=== PATIENT | female | born 1935 | race Caucasian/White ===

== ENCOUNTER 2019-07-24 15:55 | Emergency (ER) | payer MEDICARE, SELFPAY ==
[2019-07-24 16:02] VITALS: BP 178/77; PULSE 108; RESP 18; TEMP 36.6; O2SAT 100
--- NOTE | 2019-07-24 16:13 | ED.GENADULT ---
HPI - General Adult General Chief complaint: Urogenital-Female Stated complaint: bladder infection Time Seen by Provider: 07/24/19 16:14 Source: patient Mode of arrival: ambulatory Limitations: no limitations History of Present Illness HPI narrative: 83-year-old female patient presents to the [facility] with complaints of urinary symptoms for the past 5 to 6 days. Patient states she has had frequency urgency and a little bit of burning with urination. Patient states she has had a little bit of lower abdominal cramping as well. Denies any low back pain. Patient denies any fevers, nausea, vomiting or diarrhea. Related Data Home Medications Medication Instructions Recorded Confirmed atorvastatin 20 mg PO DAILY 07/24/19 07/24/19 omeprazole 20 mg PO DAILY 07/24/19 07/24/19 Allergies Allergy/AdvReac Type Severity Reaction Status Date / Time No Known Allergies Allergy Verified 07/24/19 16:24 Review of Systems Review of Systems: Narrative: CONSTITUTIONAL: Denies fever, chills, or sweats. EYES: Denies visual changes, redness, or discharge. ENT: Denies rhinorrhea, congestion, sore throat, or otalgia. CARDIOVASCULAR: Denies chest pain, palpitations, or edema. RESPIRATORY: Denies cough or dyspnea. GASTROINTESTINAL: Denies abdominal pain, nausea, vomiting, or diarrhea. GENITOURINARY: Denies dysuria or hematuria. Positive pain with urination, urgency and frequency for the past 5 to 6 days. SKIN: Denies rash or itching. MUSCULOSKELETAL: Denies back pain, joint pain, or myalgia. NEUROLOGIC: Denies headache, numbness, or weakness. PSYCHIATRIC: Denies anxiety or depression. PMFSH Comments At the time of my signature I agree with nursing past medical history, surgical, social, and family history. There is no relevant family history pertinent to the presenting complaint. Exam Narrative: Exam Narrative: GENERAL: Well-appearing, well-nourished, and in no acute distress. HEAD: Normocephalic, atraumatic. EYES: PERRLA and EOMI. ENT: Nares clear, no rhinorrhea or epistaxis. Mucous membranes moist. NECK: Supple. No lymphadenopathy CHEST: Clear to auscultation. No respiratory distress. HEART: Regular rate and rhythm. No murmur heard. Normal peripheral pulses. ABDOMEN: Soft, nontender, nondistended, normal active bowel sounds. No CVA tenderness on percussion. EXTREMITIES: Normal range of motion. No edema. SKIN: Warm, dry, no rash. NEURO: No focal deficits. Alert and oriented x3. Course Reevaluation(s) Reevaluation #1: Patient continue not to be able to give a urine specimen despite having water. Notified patient that we are in no hurry but however we did need a urine specimen to send off to the lab to know that the antibiotic that we are giving her today would treat the urinary tract infection. Discussed with her that it was not a problem to wait and continue to try and give us some urine. However when they went to go check on the patient patient had left she was not found in the waiting room and left AMA. Date: 07/24/19 Time: 17:43 Vital Signs Vital signs: Vital Signs Temperature 36.6 C 07/24/19 16:02 Pulse Rate 108 H 07/24/19 16:02 Respiratory Rate 18 07/24/19 16:02 Blood Pressure 178/77 H 07/24/19 16:02 Pulse Oximetry 100 07/24/19 16:02 Temperature 36.6 C 07/24/19 16:02 Pulse Rate 108 H 07/24/19 16:02 Respiratory Rate 18 07/24/19 16:02 Blood Pressure 178/77 H 07/24/19 16:02 Pulse Oximetry 100 07/24/19 16:02 Vital signs reviewed. The patient has been informed that they may have pre-hypertension or Hypertension based on a BP reading in the department. I recommend that the patient call the primary care provider listed on their discharge instructions or a physician of their choice this week to arrange follow up for further evaluation of possible pre-hypertension or Hypertension Medical Decision Making Differential Diagnosis Differential Diagnosis: Differential diagnosis: Uncomplicated lower UTI,
== END 2019-07-24 18:00 | disposition left against medical advice (07) ==
PROVIDERS: Emergency Provider Nurse Practitioner Family
DX: N30.00 Acute cystitis without hematuria (principal); E78.00 Pure hypercholesterolemia, unspecified; I10 Essential (primary) hypertension; K21.9 Gastro-esophageal reflux disease without esophagitis
CPT/HCPCS: 99211; G0463

== ENCOUNTER 2019-09-06 10:08 | Emergency (ER) | payer MEDICARE, SELFPAY ==
--- NOTE | ~2019-09-06 | XR_ITS ---
EXAMINATION: XR chest 2V DATE: 09/06/2019 10:41 INDICATION: Cough. Diminished sounds in the left lower lobe. TECHNIQUE: frontal and lateral views of the chest were obtained. COMPARISON: Chest radiograph dated 06/27/2018 FINDINGS: Calcified nodule at the left apex consistent with old granulomatous disease. No new airspace opacitie s, pulmonary edema, pleural effusion or pneumothorax. Arch size is normal. Prominent left paracardial fat pad. Cholecystectomy clips in the right upper quadrant. Moderate thoracolumbar spondylosis. IMPRESSION: 1. No acute cardiopulmonary disease. Reviewed, dictated and finalized at location B.
[2019-09-06 10:15] VITALS: BP 140/84; PULSE 101; RESP 20; TEMP 36.8; O2SAT 99
--- NOTE | 2019-09-06 10:17 | ED.URI ---
HPI - URI/Sore Throat General Chief Complaint: Upper Respiratory Infection Stated Complaint: cought/chest congestion Time Seen by Provider: 09/06/19 10:20 Source: patient and RN notes reviewed Mode of arrival: ambulatory Limitations: no limitations History of Present Illness HPI Narrative: 83-year-old female presents with concern for productive cough, nasal drainage. Denies sore throat, shortness of breath, chest pain, body aches, fever. Denies taking any medications for her symptoms denies any significant past medical history. MD elicited complaint: cough Related Data Home Medications Medication Instructions Recorded Confirmed atorvastatin 20 mg PO DAILY 07/24/19 09/06/19 omeprazole 20 mg PO DAILY 07/24/19 09/06/19 Allergies Allergy/AdvReac Type Severity Reaction Status Date / Time No Known Allergies Allergy Verified 09/06/19 10:29 Review of Systems Review of Systems: Narrative: CONSTITUTIONAL: Denies malaise, chills, sweats, or fever. EYES: Denies visual changes, redness, or discharge. ENT: Reports rhinorrhea, postnasal drainage. Denies congestion, sinus pain, otalgia and sore throat. CARDIOVASCULAR: Denies chest pain, palpitations, or edema. RESPIRATORY: Reports productive cough. Denies dyspnea. GASTROINTESTINAL: Denies abdominal pain, nausea, vomiting, diarrhea SKIN: Denies rash or itching. MUSCULOSKELETAL: Denies myalgia. NEUROLOGIC: Denies headache. All systems reviewed & are unremarkable except as noted in HPI and below PMFSH Comments At time of signature, agree with nursing past medical, surgical, social and family history. There is no relevant family history pertinent to the presenting complaint Exam Narrative: Exam Narrative: GENERAL: Well-appearing, well-nourished, and in no acute distress. HEAD: Normocephalic EYES: PERRLA, conjunctivae clear ENT: Nares clear, turbinates erythematous, clear discharge. Mucous membranes moist. TM pearly armenta with dull light reflex bilaterally; no tragal tenderness. Oropharynx not erythematous without lesions. Tonsils not enlarged and without exudate, no drooling, no hoarseness, no trismus, uvula midline. NECK: Supple. No lymphadenopathy CHEST: Clear to auscultation, breath sounds slightly diminished in the left lower lobe. No wheezing, rhonchi, rales, or stridor. No respiratory distress, speaks in full sentences. HEART: Regular rate and rhythm. No murmur heard. SKIN: Warm, dry, no rash. NEURO: Alert and oriented x3. PSYCH: Normal mood and affect Course Course Emergency Course: Patient is aware of diagnosis, understands and agrees to treatment plan. Anticipatory guidance given. Patient agrees to follow-up as directed and is aware of reasons to seek care at the emergency department. Portions of this record may have been created with voice recognition software Vital Signs Vital signs: Reviewed. MDM - URI/Sore Throat MDM Narrative Medical decision making narrative: Differential diagnosis considered: Strep pharyngitis, allergic rhinitis, upper respiratory tract infection, sinusitis, rhinosinusitis, nasopharyngitis. viral pharyngitis, otitis media, otitis externa, pneumonia, bronchitis, viral cough syndrome, viral syndrome, and influenza. Exam findings show no acute concerns or changes; patient is non-toxic appearing and is in no distress. Patient is appropriate for outpatient treatment and follow-up. Imaging Data My impression: Images reviewed, interpreted by radiologist, agree, see report. Radiologist's impression: EXAMINATION: XR chest 2V DATE: 09/06/2019 10:41 INDICATION: Cough. Diminished sounds in the left lower lobe. TECHNIQUE: frontal and lateral views of the chest were obtained. COMPARISON: Chest radiograph dated 06/27/2018 FINDINGS: Calcified nodule at the left apex consistent with old granulomatous disease. No new airspace opacities, pulmonary edema, pleural effusion or pneumothorax. Arch size is normal. Prominent left paracardial fat pad. Cholecystectomy cl
== END 2019-09-06 10:56 | disposition home or self-care (01) ==
PROVIDERS: Emergency Provider Nurse Practitioner
DX: J06.9 Acute upper respiratory infection, unspecified (principal); E78.00 Pure hypercholesterolemia, unspecified; I10 Essential (primary) hypertension; K21.9 Gastro-esophageal reflux disease without esophagitis
CPT/HCPCS: 71046; 99213; G0463

== ENCOUNTER 2020-02-03 07:42 | Outpatient (CLI) | payer MEDICARE, SELFPAY ==
--- NOTE | 2020-02-03 09:31 | ECG_ITS ---
Measurements Intervals [place] Rate: 78 P: 66 NM: 220 QRS: -25 QRSD: 121 T: -45 QT: 389 QTc: 444 Interpretive Statements SINUS RHYTHM WITH FIRST DEGREE AV BLOCK LEFT VENTRICULAR HYPERTROPHY AND ST-T CHANGE BORDERLINE ST-T WAVE ABNORMALITY- INF/LAT LEADS BASELINE ARTIFACT- I, II, III, AVR, AVL, AVF ABNORMAL ECG Electronically Signed On 02-03-2020 10:40:01 CDT by Rico Moraes D.O.
[2020-02-03 09:45] LABS: Basophils Absolute Auto 0.1 K/mm3 (0.0-0.1); Basophils Percent Auto 0.6 % (0.2-1.2); Eosinophils Absolute Auto 0.2 K/mm3 (0-0.3); Eosinophils Percent Auto 2.2 % (0-4.4); Hematocrit 40.7 % (37.0-47.0); Hemoglobin 13.4 g/dL (12.0-15.0); Immature Granulocyte Absolute 0.04 K/mm3 (0.00-0.031); Immature Granulocyte Percent A 0.4 % (0-0.5); Lymphocytes Percent Auto 39.2 % (18.3-44.2); Mean Corpuscular HGB Conc 32.9 g/dl (32-36); Mean Corpuscular Volume 91.1 fl (80-100); Mean Platelet Volume 9.9 fl (7.4-10.4); Monocytes Absolute Auto 0.6 K/mm3 (0.1-0.6); Monocytes Percent Auto 6.2 % (2.6-8.5); Neutrophils Absolute Auto 5.1 K/mm3 (1.3-6.7); Neutrophils Percent Auto 51.4 % (45.5-73.1); Platelet Count Result 228 k/mm3 (150-375); Red Blood Count 4.47 M/mm3 (4.2-5.4); Red Cell Distribution Width 12.7 % (11.5-14.5); White Blood Count 9.9 K/mm3 (4.5-10.0)
[2020-02-03 09:53] LABS: Prothrombin Time 12.9 Seconds (11.1-14.7)
[2020-02-03 09:54] LABS: Partial Thromboplastin Time 26.4 SECONDS (22.3-36.8)
[2020-02-03 10:02] LABS: Alanine Aminotransferase 28 U/L (4-35); Albumin Level 4.7 g/dL (3.5-5.1); Alkaline Phosphatase 75 U/L (38-126); Anion Gap 8 mmol/L (8-16); Aspartate Amino Transferase 28 U/L (14-36); Bilirubin,Total 0.7 mg/dL (0.2-1.3); Blood Urea Nitrogen 12 mg/dL (7-17); Calcium 9.6 mg/dL (8.4-10.2); Carbon Dioxide 28 mmol/L (22-30); Chloride 104 mmol/L (98-107); Estimated Glomerular Filt Rate > 60; Glucose 132 mg/dL (65-105); Potassium 4.6 mmol/L (3.4-5.0); Sodium 140 mmol/L (137-145)
== END 2020-02-03 07:43 | disposition home or self-care (01) ==
LOC: ANHSURGERY 07:44
PROVIDERS: PCP Internal Medicine; Visit Provider Urology
DX: Z01.812 Encounter for preprocedural laboratory examination (principal); N81.4 Uterovaginal prolapse, unspecified; I10 Essential (primary) hypertension; I44.0 Atrioventricular block, first degree
CPT/HCPCS: 36415; 80053; 85025; 85610; 85730; 87086; 87088; 93005

== ENCOUNTER 2020-02-28 00:12 | Outpatient (CLI) | payer MEDICARE, SELFPAY ==
[2020-02-28 18:02] LABS: SARS-CoV-2 RNA PCR Negative
== END 2020-02-28 00:13 | disposition home or self-care (01) ==
LOC: ANHCOVIDDT 00:12
PROVIDERS: PCP Internal Medicine; Visit Provider Urology
DX: Z01.812 Encounter for preprocedural laboratory examination (principal); Z20.828 Contact with and (suspected) exposure to other viral communicable diseases
CPT/HCPCS: 87635; C9803; U0003

== ENCOUNTER 2020-03-02 00:17 | Day surgery (SDC) | payer MEDICARE, SELFPAY ==
[2020-02-03 08:15] VITALS: BP 185/97; PULSE 77; RESP 16; TEMP 36.7; O2SAT 98; BMI 29.5
--- NOTE | 2020-02-03 09:39 | PC.NURSE ---
PATIENT'S BP= 185/97. SHE WAS DUE FOR HER BP MED, BUT DID NO TTAKE IT BEFORE COMING IN FOR PRE-OP INTERVIEW. INSTR TO GO HOME AFTER INTERVIEW AND TAKE MORNING MEDS, SHE RELAYS UNDERSTANDING.
--- NOTE | 2020-02-26 08:05 | P.HP_ITS ---
H&P: HPI History of Present Illness Date/Time: 02/26/20 08:05 Chief complaint: Cystocele, Uterine Prolapse Narrative: Valerie Fonseca is a 84 year old female who is admitted for robotic supracervical hysterectomy and bilateral salpingo- oophorectomy as well as sacral colpopexy has uterine prolapse ) disturbing. Risks and benefits were reviewed in great detail Review of Systems Review of Systems: All systems reviewed & are unremarkable except as noted in HPI and below PMFSH Social History Social History Smoking status: Never smoker Alcohol intake: never Substance use: never Spiritual care concerns: No Meds Home Medications and Allergies Home Medications Medication Instructions Recorded Confirmed Type atorvastatin 20 mg PO QAM 07/24/19 02/03/20 History omeprazole 20 mg PO QAM 07/24/19 02/03/20 History jvblvboh-rqz-nfccw acid-vit K 1 cap PO QAM 02/03/20 02/03/20 History [Multi For Her 50 Plus] quinapril 80 mg PO QAM 02/03/20 02/03/20 History Allergies Allergy/AdvReac Type Severity Reaction Status Date / Time No Known Allergies Allergy Verified 02/03/20 08:04 Exam Const: General: no acute distress Eyes: General: appearance normal, both eyes and all related structures Neck: Neck: supple and no JVD Thyroid: thyroid normal Resp: Effort & Inspection: normal respiratory effort Auscultation: clear to auscultation bilaterally Cardio: Rate: regular rate Rhythm: regular rhythm GI: Inspection: non-distended GI Palp: Yes Soft to palpation, No Tenderness to palpation present (GI) and No Guarding due to palpation present (GI) Auscultation: normal bowel sounds : General: Yes other ( complete prolapse present. Uterus and adnexa nonenlarged) Skin: General skin exam: no rashes or lesions noted Extrem: General: normal to inspection and no edema Psych: Mental Status: mental status grossly normal Affect: normal affect Assessment and Plan Additional Plan impression: Pelvic prolapse Plan: Robotic supracervical hysterectomy and bilateral salpingo-oophorectomy
--- NOTE | 2020-03-01 17:14 | PM.IMHP ---
H&P: HPI History of Present Illness Date/Time: 03/01/20 17:14 Chief complaint: Cystocele, Uterine Prolapse Narrative: Valerie Fonseca is a 84 year old female with POP without BRODERICK Review of Systems Review of Systems: All systems reviewed & are unremarkable except as noted in HPI and below PMFSH Social History Social History Smoking status: Never smoker Alcohol intake: never Substance use: never Spiritual care concerns: No Meds Home Medications and Allergies Home Medications Medication Instructions Recorded Confirmed Type atorvastatin 20 mg PO QAM 07/24/19 02/03/20 History omeprazole 20 mg PO QAM 07/24/19 02/03/20 History xrcewamc-vaj-uympp acid-vit K 1 cap PO QAM 02/03/20 02/03/20 History [Multi For Her 50 Plus] quinapril 80 mg PO QAM 02/03/20 02/03/20 History Allergies Allergy/AdvReac Type Severity Reaction Status Date / Time No Known Allergies Allergy Verified 02/03/20 08:04 Exam Const: General: no acute distress HENMT: Mouth: Yes moist mucous membranes Eyes: EOM: EOMs intact bilaterally Neck: Neck: supple Resp: Effort & Inspection: normal respiratory effort GI: Inspection: non-distended GI Palp: Yes Soft to palpation : Other: anterior +4, apex at 0 Skin: General skin exam: normal color Neuro: Motor exam (neuro): Normal motor muscle tone present throughout Extrem: General: normal to inspection Psych: Mental Status: mental status grossly normal Assessment and Plan Assessment and plan (1) Uterine prolapse: Code(s): N81.4 - Uterovaginal prolapse, unspecified Status: Acute Assessment and Plan: Robotic Sacral Colpopexy
[2020-03-02] VITALS (17 sets, daily range): BP systolic 112–184; BP diastolic 50–86; PULSE 72–100; RESP 10–18; TEMP 36.2–37.2; O2SAT 94–100; BMI 30.2
--- NOTE | 2020-03-02 06:03 | WPDHPUPDATE1 ---
History and Physical Update Update Date/Time: 03/02/20 06:03 History and Physical has been reviewed, including an updated exam of the patient. There are NO changes in the patient's condition. Risks, benefits, and alternatives have been discussed and questions answered. Patient agrees to proceed with procedure.
--- NOTE | 2020-03-02 06:42 | P.PNAN_ITS ---
Anes - Initial Pre Proc Eval Procedure: Operation Date: 03/02/20 07:30 Proposed Procedures p Robotic Sacrocolpopexy,Possible Urethral Sling - Jimenez Aldana MD s Robotic Assisted Supracervical Hysterectomy - Bharath Grant MD Date/Time: 03/02/20 06:42 Surgeon: Jimenez Aldana MD Pre Op Diagnosis: Cystocele, Uterine Prolapse Patient Data Age: 84 Gender: F Height: 5 ft 1.5 in Weight: 72.1 kg Last Vital Signs Temp 36.7 C 02/03/20 08:15 Pulse 77 02/03/20 08:15 Resp 16 02/03/20 08:15 BP 185/97 H 02/03/20 08:15 Pulse Ox 98 02/03/20 08:15 Allergies Allergy/AdvReac Type Severity Reaction Status Date / Time No Known Allergies Allergy Verified 03/02/20 06:16 Home Medications Medication Instructions Recorded Confirmed Type atorvastatin 20 mg PO QAM 07/24/19 03/02/20 History omeprazole 20 mg PO QAM 07/24/19 03/02/20 History fihzjapg-zpk-kyxzu acid-vit K 1 cap PO QAM 02/03/20 03/02/20 History [Multi For Her 50 Plus] quinapril 80 mg PO QAM 02/03/20 03/02/20 History Patient hx anesthesia problems: none Family hx anesthesia problems: none PMFSH Past Medical History Medical History (Updated 03/02/20 @ 06:42 by Bharath Sorto MD) Anxiety HTN (hypertension) Hyperlipidemia Surgical History Surgical History (Updated 03/02/20 @ 06:43 by Bharath Sorto MD) History of cholecystectomy History of ear surgery Social History Social History Smoking status: Never smoker Alcohol intake: never Substance use: never Living arrangements: alone Spiritual care concerns: No Anes - Eval Final PreProcedure Day of Procedure 03/02/20 06:42 Patient weight: overweight Heart: regular rate and rhythm Lungs: clear to auscultation Airway: Mallampati scale class II Neurological: alert and oriented Last oral intake: >/= 8 hours ASA classification: III Emergent: no Anesthetic plan: proceed Anesthesia type and monitoring: general ETT and standard monitoring Informed Consent: The patient's anesthetic plan and its attendant risks and b enefits were discussed with the patient/family/POA. Questions were solicited and answers provided to the satisfaction of the patient/family/POA.
[2020-03-02] MEDS: KETOROLAC 15 MG/ML VIAL (*BKC) IV PUSH ×2 (07:09→17:50)
[2020-03-02] MEDS: ACETAMINOPHEN 500 MG TABLET 1000 MG PO (07:09)
[2020-03-02] MEDS: LACTATED RINGERS 1,000 ML 30 ML IV CONT ×2 (07:09→10:08)
--- NOTE | 2020-03-02 07:19 | WPDHPUPDATE1 ---
History and Physical Update Update Date/Time: 03/02/20 07:19 History and Physical has been reviewed, including an updated exam of the patient. There are NO changes in the patient's condition. Risks, benefits, and alternatives have been discussed and questions answered. Patient agrees to proceed with procedure.
--- NOTE | 2020-03-02 07:23 | SUR.PREOP ---
PT STATES SHE IS UNABLE TO SWALLOW PILLS. PT CHEWED TYLENOL. KIRSTY SHEET MANAGER NOTIFIED
--- NOTE | 2020-03-02 07:32 | SUR.PREOP ---
0715; [facility] ANN NOTIFIED OF BP AND PT INABILITY TO SWALLOW PILLS
[2020-03-02] MEDS: ceFAZolin 2 GM/D5W 50 ML 2 GM/50 ML BAG IVPB (07:34)
[2020-03-02] MEDS: metroNIDAZOLE 500 MG/ISO 100ML 500 MG/100 ML BAG 100 MG IVPB ×3 (07:34→23:00)
--- NOTE | 2020-03-02 08:31 | PM.PROC ---
Procedure Note - Detailed Date of procedure: 03/02/20 Pre-op diagnosis: Cystocele, Uterine Prolapse Surgeon: Bharath Grant MD Postop diagnosis: Uterine prolapse /cystocele Procedure: Robotic supracervical hysterectomy and bilateral salpingo-oophorectomy EBL: 25cc Anesthesia: General endotracheal Complications: None Findings: Uterine prolapse small ovaries and tubes bilaterally. This was done in conjunction with Dr. Jimenez Aldana who undertook robotic sacral colpopexy Description of procedure the patient was prepped and draped in the normal sterile fashion and placed in the dorsal lithotomy position. Under excellent general endotracheal anesthesia weighted speculum placed in posterior fornix of vagina. The anterior lip of the cervix grasped with a single-tooth tenaculum and the Millard's cannula inserted to the cervix. This was attached to the single-tooth to be used for later uterine manipulation. A [address] [place] peguero proceeded with docking of the robot. Please see his operative report for full details. Once the robot had been docked attention was turned to the phone counselor. The left round ligament was grasped, burned, cut. Anteriorly a bladder flap was formed by sharply dissecting the bladder caudally from the uterine ends cervix and uterus to the opposite round ligament was clamped, burned, cut. Next the left infundibulopelvic structure was skeletonized to remove left ovary and tube this was clamped, burned, cut and brought to the level of the previously cut round ligament. In like fashion the the infundibulopelvic structures on the right were clamped, burned, cut to remove the right ovary and tube. The cardinal and broad ligaments on the left were serially skeletonized these were serially clamped, burned, cut and brought to the level of the uterine vessels on the left. These were individually clamped, burned, cut. In like fashion the cardinal and broad ligaments on the right were serially skeletonized. They were clamped, burned, cut and brought down to the level of the uterine vessels on the right. These were individually skeletonized and clamped, burned, cut. Blanching of the uterus was noted a supracervical incision was made and the cervix left intact. The uterus tubes and ovaries were placed in an Endo-Catch. Blood loss was estimated at25cc at that point and Dr. Aldana took over from there. There were no immediate complications up to this point
[2020-03-02] MEDS: BUPIVACAINE/EPINEPHRINE 0.25% 50 ML VIAL INFILTRATE (08:56)
--- NOTE | 2020-03-02 09:56 | P.OP_ITS ---
Procedure Note - Detailed Date of procedure: 03/02/20 Pre-op diagnosis: Cystocele, Uterine Prolapse Uterine prolapse Post-op diagnosis: same Procedure performed: Robotic assisted laparoscopic sacral colpopexy Cystoscopy Description of procedure: She understood the risks of bleeding, infection, damage to surrounding organs, bowel injury, bowel obstruction, recurrence of prolapse, persistent or recurrent stress incontinence, mesh related complications including exposure and extrusion, diskitis, postoperative voiding dysfunction including incontinence and retention, hip and leg pain, dyspareunia, and she agrees to proceed. She did not have documented stress incontinence on urodynamics. She understands she may have postoperative stress incontinence requiring another procedure. She was correctly identified and informed consent was obtained. She was brought to the operating room. She was given general anesthesia. She was placed in the dorsal lithotomy position. All pressure points were padded. She was given appropriate perioperative antibiotics. Time-out performed. I anesthetized the skin 3 fingerbreadths cephalad to the umbilicus. I incised the skin. I dissected down to locate the fascia. I grasped the fascia with Francis clamps. I entered the fascia sharply. I placed Vicryl sutures for later fascial closure. I placed a midline trocar. Under direct vision 2 additional trocars were placed on the right and left upper quadrant. She was placed in steep Trendelenburg and the robot was docked. Her process engineering technician performed the portion of the procedure and left the specimen and a sac which was extracted. I then sat at the console. With the Sizer in the vagina I created a plane on the anterior and posterior vaginal wall. This was done for several cm taking great care not to injure the vagina, bladder, or rectum. I introduced the mesh into the abdomen. I sewed the anterior leaflet of mesh on the anterior vaginal wall and posterior leaf of the mesh on the posterior vaginal wall with several [place]- Be sutures taking great care not to go through and through. I then reflected the colon laterally. I opened up the posterior peritoneum over the sacral promontory. I carried this into the cul-de-sac. I kept the ureters lateral. I freed up the edges. I located the anterior longitudinal ligament of the sacrum. I tensioned the mesh appropriately. I did a vaginal exam to ensure prolapse reduction without undue tension. I then sewed the proximal leaflet of mesh onto the ligament with 3 sutures of 2 0 [place]-Be. Next the mass was meticulously retroperitonealized with a running 2 0 Monocryl suture. I allowed the colon to go back into its normal anatomic location. There is no signs of any impingement or stricturing. The abdomen was exited. Fascia was closed. Skin was closed with Monocryl and glue. I then performed cystoscopy. The bladder is examined. There was no tumors, stones, foreign bodies, surgical artifact. Both ureters were seen to excrete clear yellow urine. There is no surgical artifact in the urethra. Catheter was then replaced. She was awakened and transferred to the PACU in stable condition. Anesthesia: GLMA Surgeon: Jimenez Aldana MD Drains: Yes (Tejada catheter) Packing: Yes Complications: No immediate complications Condition: stable Disposition: PACU
[2020-03-02] MEDS: ONDANSETRON INJ 4 MG/2 ML VIAL IV PUSH (10:37)
[2020-03-02] MEDS: fentaNYL CITRATE INJ (*CRX) 100 MCG/2 ML VIAL 25 MCG IV PUSH ×4 (10:40→11:05)
--- NOTE | 2020-03-02 11:29 | PC.NURSE ---
This patient, Valerie Fonseca, was received from PACU per bed to room 289. Patient/family oriented to unit policies and routines
[2020-03-02] MEDS: KCL 20 MEQ/D5/0.45% SOD CHL 1,000 ML 100 ML IV CONT ×2 (11:40→22:32)
[2020-03-02] MEDS: MORPHINE SULFATE (*CRX) 2 MG/ML INJ IV PUSH (14:04)
[2020-03-02] MEDS: lisinopriL 20 MG TABLET 80 MG PO (16:39)
[2020-03-02] MEDS: CALCIUM CARBONATE (TUMS) 500 MG (200 MG ELEMENTAL) PO (21:38)
[2020-03-02] MEDS: Acetaminophen/HYDROcodone ELIXIR (*CRX) 7.5 MG/15 ML UDC 5 MG PO (21:41)
[2020-03-03 04:10] VITALS: BP 152/75; PULSE 102; RESP 20; TEMP 36.8; O2SAT 93
[2020-03-03] MEDS: Acetaminophen/HYDROcodone ELIXIR (*CRX) 7.5 MG/15 ML UDC 5 MG PO ×2 (04:31→09:27)
[2020-03-03 06:05] LABS: Potassium 4.3 mmol/L (3.4-5.0)
--- NOTE | 2020-03-03 06:31 | P.DS_ITS ---
DS: Admitting Diagnosis Admitting Diagnosis Admitting Diagnosis: Cystocele, Uterine Prolapse DS: Summary Time Spent with Patient Time attestation: Total time spent providing and/or coordinating discharge services: patient is post operative course was unremarkable. She remained afebrile. Vital signs were stable. She was up, voiding without difficulty, passing gas, eating regular diet, ambulating general without complaints Exam Const: General: no acute distress Eyes: General: appearance normal, both eyes and all related structures Neck: Neck: supple and no JVD Thyroid: thyroid normal Resp: Effort & Inspection: normal respiratory effort Auscultation: clear to auscultation bilaterally Cardio: Rate: regular rate Rhythm: regular rhythm GI: Inspection: non-distended GI Palp: Yes Soft to palpation, No Tenderness to palpation present (GI) and No Guarding due to palpation present (GI) Auscultation: normal bowel sounds : General: Yes bladder normal to palpation External Female Exam: normal external appearance Speculum Exam - Vagina: normal vaginal discharge and No v aginal bleeding Speculum Exam - Cervix: nontender Bimanual exam- vagina & uterus: bladder normal to palpation and No Cervical tenderness present OB/external & speculum: No vaginal bleeding Skin: General skin exam: no rashes or lesions noted Extrem: General: normal to inspection and no edema Psych: Mental Status: mental status grossly normal Affect: normal affect DS: Data Data Completed and Pending Pending studies at discharge: Pending at discharge 03/02/20 08:23 Surgical [PTH] Routine Labs on day of discharge: Labs from last 24 hours 03/03/20 03/02/20 04:27 07:16 Potassium 4.3 Blood Type A Positive Antibody Screen Negative Discharge Plan Discharge Patient Disposition: Home, Self-Care Discharge Instructions: No lifting >20lb, exercise for 6 weeks No tub bath or pool for 2 weeks No intercourse for 6 weeks Stand Alone Forms: General Discharge Instructions Follow-up/Referrals: Jimenez Aldana MD [Physician] - (And 1 week and in 6 weeks) Discharge Medications: New hydrocodone-acetaminophen 7.5-325 mg/15 mL solution 10 ml PO Q6H PRN (Reason: pain) Qty: 200 RF: 0 Continued atorvastatin 20 mg Tablet 20 mg PO QAM RF: 0 omeprazole 20 mg Tablet,Delayed Release (Dr/Ec) 20 mg PO QAM RF: 0 quinapril 40 mg tablet 80 mg PO QAM RF: 0 Multi For Her 50 Plus 400-80 mcg Capsule 1 cap PO QAM RF: 0
--- NOTE | 2020-03-03 06:32 | PM.OBPNVD ---
OB - PN: Subj Subjective Date/time seen: 03/03/20 06:32 Patient comments: no complaints and pain well controlled OB - PN: Obj Data Labs CBC & Chem 7: 03/03/20 04:27 Labs: Laboratory Results - last 24 hr 03/02/20 03/03/20 07:16 04:27 Potassium 4.3 Blood Type A Positive Antibody Screen Negative OB - PN A/P Plan day: 1 Plan: routine care, discharge home and follow up 6 weeks (2 weeks) Time Spent With Patient Time: Total time spent is greater than 50% in coordination of care (as documented) at patient's floor/unit and/or counseling patient: Time with patient: less than 15 minutes Review of Systems Review of Systems: All systems reviewed & are unremarkable except as noted in HPI and below Exam Const: General: no acute distress Eyes: General: appearance normal, both eyes and all related structures Neck: Neck: supple and no JVD Thyroid: thyroid normal Resp: Effort & Inspection: normal respiratory effort Auscultation: clear to auscultation bilaterally Cardio: Rate: regular rate Rhythm: regular rhythm GI: Inspection: non-distended GI Palp: Yes Soft to palpation, No Tenderness to palpation present (GI) and No Guarding due to palpation present (GI) Auscultation: normal bowel sounds : General: Yes bladder normal to palpation External Female Exam: normal external appearance Speculum Exam - Vagina: normal vaginal discharge and No vaginal bleeding Speculum Exam - Cervix: nontender Bimanual exam- vagina & uterus: bladder normal to palpation and No Cervical tenderness present OB/external & speculum: No vaginal bleeding Skin: General skin exam: no rashes or lesions noted Extrem: General: normal to inspection and no edema Psych: Mental Status: mental status grossly normal Affect: normal affect
--- NOTE | 2020-03-03 07:00 | PC.NURSE ---
0900 PT introductions made and plan of care discussed per post op director risk surgery, pain management, daily care activities and pending discharge to home. PT verbalized understanding of such care.
[2020-03-03] MEDS: metroNIDAZOLE 500 MG/ISO 100ML 500 MG/100 ML BAG 100 MG IVPB (08:00)
[2020-03-03 08:40] VITALS: BP 143/66; PULSE 86; RESP 18; TEMP 37.4; O2SAT 98
[2020-03-03] MEDS: CALCIUM CARBONATE (TUMS) 500 MG (200 MG ELEMENTAL) PO (09:25)
[2020-03-03] MEDS: ENOXAPARIN 30 MG/0.3 ML SYRINGE SUB-Q (09:27)
[2020-03-03] MEDS: KETOROLAC 15 MG/ML VIAL (*BKC) IV PUSH (09:29)
--- NOTE | 2020-03-03 09:45 | PC.NURSE ---
Pt refused her home medications. PT states she wants to take them at home this morning.
[2020-03-03 10:12] VITALS: PULSE 102; RESP 20; O2SAT 93
--- NOTE | 2020-03-03 11:30 | PC.NURSE ---
PT discharged to home via wheelchair to waiting car, Follow up appts confirmed
--- NOTE | 2020-03-03 12:59 | PC.NURSE ---
Pt received discharge instructions per protocol and verbalized understanding of such instructions.
== END 2020-03-03 11:30 | disposition home or self-care (01) ==
LOC: ANHSURGERY 08:16 → ANHOB2 11:44
PROVIDERS: Obstetrics & Gynecology; PCP Internal Medicine; Visit Provider Urology
PROC: (CPT 57425; principal; 2020-03-02 07:30)
PROC: 0UT94ZZ Resection of Uterus, Percutaneous Endoscopic Approach (ICD-10-PCS; CPT 57425; 2020-03-02 07:30)
DX: N81.4 Uterovaginal prolapse, unspecified (principal); E78.5 Hyperlipidemia, unspecified; I10 Essential (primary) hypertension; N80.0 Endometriosis of uterus; D25.1 Intramural leiomyoma of uterus; D27.0 Benign neoplasm of right ovary
CPT/HCPCS: 58542; 57425; S2900; 36415; 84132; 86850; 86900; 86901; 88307; 99199; A9270; C1781; J0330; J0690; J1100; J1650; J1885; J2270; J2370; J2405; J2704; J3010; J3480; J7030; J7120

== ENCOUNTER 2021-04-28 15:41 | Emergency (ER) | payer MEDICARE, SELFPAY ==
--- NOTE | 2021-04-28 15:49 | ED.URI ---
HPI - URI/Sore Throat General Chief Complaint: Upper Respiratory Infection Stated Complaint: cough sore throat and ear pain Time Seen by Provider: 04/28/21 15:49 Source: patient and RN notes reviewed History of Present Illness HPI Narrative: Patient is an 85-year-old female who presents the urgent care with complaints of cough, postnasal drainage, ear pain and sore throat. Patient states that a little bit of her symptoms started last night and persistent cough this morning. Patient has been using all natural products for her symptoms through her company known as [employer]. Patient denies of any known exposure to Covid or influenza. Denies of any nausea, vomiting, fever. No other acute complaints. No acute distress noted. Patient aware of the plan of care. Some parts of this dictation were generated by voice recognition software and may contain typographical and/or grammatical inaccuracies. Related Data Home Medications Medication Instructions Recorded Confirmed omeprazole 20 mg PO QAM 07/24/19 03/02/20 Multi For Her 50 Plus 1 cap PO QAM 02/03/20 03/02/20 quinapril 80 mg PO QAM 02/03/20 03/02/20 atorvastatin 10 mg PO DAILY 04/28/21 04/28/21 furosemide 20 mg PO DAILY 04/28/21 04/28/21 propranolol 10 mg PO BID 04/28/21 04/28/21 Allergies Allergy/AdvReac Type Severity Reaction Status Date / Time No Known Allergies Allergy Verified 04/28/21 15:58 Review of Systems Review of Systems: CONSTITUTIONAL: Denies fever, chills, or sweats. EYES: Denies visual changes, redness, or discharge. ENT: Reports of congestion, rhinorrhea, mild sore throat CARDIOVASCULAR: Denies chest pain, palpitations, or edema. RESPIRATORY: Reports of cough without dyspnea GASTROINTESTINAL: Denies abdominal pain, nausea, vomiting, or diarrhea. GENITOURINARY: Denies dysuria or hematuria. SKIN: Denies rash or itching. MUSCULOSKELETAL: Denies back pain, joint pain, or myalgia. NEUROLOGIC: Denies headache, numbness, or weakness. All other systems reviewed are negative, except as documented in HPI. [facility] Past Medical History Medical History (Updated 04/28/21 @ 16:40 by HECTOR Guthrie) Anxiety HTN (hypertension) Hyperlipidemia Surgical History Surgical History (Updated 03/02/20 @ 06:43 by Bharath Sorto MD) History of cholecystectomy History of ear surgery Social History Social History Smoking status: Never smoker Alcohol intake: never Substance use: never Spiritual care concerns: No Comments At the time of my signature, I reviewed and agree with the nursing past medical, surgical, social, and family history. There is no relevant family history pertinent to the patient complaint. Exam Narrative: GENERAL: This is a well-nourished, well-developed patient, in no apparent distress. HEAD: normocephalic, atraumatic. EYES: PERRL. Sclera clear/white. Vision is grossly intact. Mild bilateral injected conjunctiva with clear tearing EARS: External ears normal, auditory canals clear and without drainage, TMs normal without perforation. Hearing grossly intact. NOSE: External nose normal with no obvious nasal discharge, nares without redness, clear rhinorrhea. THROAT: Mucous membranes moist, posterior pharynx clear. Moderate postnasal drainage NECK: Neck supple CARDIOVASCULAR: Regular rate and rhythm without murmurs, gallops, or rubs. RESPIRATORY: Clear to auscultation. Breath sounds equal bilaterally. No wheezes, rales, or rhonchi. SKIN: warm, intact with no suspicious lesions or rash, good texture and turgor. NEURO: awake, alert, and oriented to person, place and time. There were no obvious focal neurologic abnormalities. EXTREMITIES: No clubbing, cyanosis, or edema. Course Vital Signs Vital signs: Vital Signs Temperature 98.9 F 04/28/21 15:52 Pulse Rate 86 04/28/21 15:52 Respiratory Rate 16 04/28/21 15:52 Blood Pressure 199/85 H 04/28/21 15:52 Pulse Oximetry
[2021-04-28 15:52] VITALS: BP 199/85; PULSE 86; RESP 16; TEMP 37.2; O2SAT 97
[2021-04-28 16:00] VITALS: BP 199/85; PULSE 86; RESP 16; TEMP 37.2; O2SAT 97
[2021-04-29 15:23] LABS: SARS-CoV-2 RNA PCR Positive
== END 2021-04-28 16:40 | disposition home or self-care (01) ==
PROVIDERS: Emergency Provider Nurse Practitioner Family
DX: U07.1 COVID-19 (principal); E78.5 Hyperlipidemia, unspecified; I10 Essential (primary) hypertension
CPT/HCPCS: 87804; 99213; C9803; G0463; U0003; U0005

== ENCOUNTER 2021-11-04 17:35 | Emergency (ER) | payer MEDICARE, SELFPAY ==
--- NOTE | 2021-11-04 17:39 | ED.GENADULT ---
HPI - General Adult General Chief complaint: Unspecified Stated complaint: blood pressure issue Time Seen by Provider: 11/04/21 17:45 Source: patient, family and RN notes reviewed History of Present Illness HPI narrative: Patient is an 85-year-old female who presents the urgent care with her daughter with complaints of itchiness, intermittent dizziness, and problems with her blood pressure medications. Patient states that she is called her doctor regarding the dizziness and they told her to keep taking her medications as directed until her follow-up appointment on December 12 . Patient states that she stopped taking her Coreg approximately 3 or 4 days ago and states that the dizziness has gotten much better however now her blood pressure has been elevated. Patient denies of any recent falls, confusion. States that she does have a lot of itchiness . And has not taken anything for the itch. There is no notable rash to the skin. Denies of any new lotions, detergents or creams. No other complaints. No acute distress noted. Patient aware of the plan of care. Some parts of this dictation were generated by voice recognition software and may contain typographical and/or grammatical inaccuracies. Related Data Home Medications Medication Instructions Recorded Confirmed omeprazole 20 mg tablet,delayed 20 mg PO QAM 07/24/19 04/28/21 release ekccwvkowtxm-yvtixgor-jdodo acid 1 cap PO QAM 02/03/20 04/28/21 400 mcg-vitamin K 80 mcg capsule (Multi For Her 50 Plus) quinapril 40 mg tablet 80 mg PO QAM 02/03/20 04/28/21 atorvastatin 10 mg tablet 10 mg PO DAILY 04/28/21 04/28/21 propranolol 10 mg tablet 10 mg PO BID 04/28/21 04/28/21 carvedilol 6.25 mg tablet 625 mg PO BID 11/04/21 11/04/21 hydrochlorothiazide 25 mg tablet 25 mg PO DAILY 11/04/21 11/04/21 nifedipine 60 mg tablet,extended 60 mg PO BID 11/04/21 11/04/21 release nifedipine 60 mg tablet,extended mg PO 11/04/21 release Allergies Allergy/AdvReac Type Severity Reaction Status Date / Time No Known Allergies Allergy Verified 11/04/21 17:48 Review of Systems Review of Systems: CONSTITUTIONAL: Denies fever, chills, or sweats. EYES: Denies visual changes, redness, or discharge. ENT: Denies rhinorrhea, congestion, sore throat, or otalgia. CARDIOVASCULAR: Denies chest pain, palpitations, or edema. RESPIRATORY: Denies cough or dyspnea. GASTROINTESTINAL: Denies abdominal pain, nausea, vomiting, or diarrhea. GENITOURINARY: Denies dysuria or hematuria. SKIN: Reports of itchiness without rash MUSCULOSKELETAL: Denies back pain, joint pain, or myalgia. NEUROLOGIC: Denies headache, numbness, or weakness. All other systems reviewed are negative, except as documented in HPI. [facility] Past Medical History Medical History (Updated 11/04/21 @ 18:02 by HECTOR Guthrie) Anxiety HTN (hypertension) Hyperlipidemia Surgical History Surgical History (Updated 03/02/20 @ 06:43 by Bharath Sorto MD) History of cholecystectomy History of ear surgery Social History Social History Smoking status: Never smoker Alcohol intake: never Substance use: never Spiritual care concerns: No Comments At the time of my signature, I reviewed and agree with the nursing past medical, surgical, social, and family history. There is no relevant family history pertinent to the patient complaint. Exam Narrative: GENERAL: This is a well-nourished, well-developed patient, in no apparent distress. HEAD: normocephalic, atraumatic. EYES: PERRL. Sclera clear/white. Vision is grossly intact. EARS: External ears normal NOSE: External nose normal with no obvious nasal discharge, nares without redness, no rhinorrhea. THROAT: Mucous membranes moist NECK: Neck supple CARDIOVASCULAR: Sinus tachycardic RESPIRATORY: Clear to auscultation. SKIN: warm, intact with no suspicious lesions or rash, good texture and turgor. NEURO: awake, alert,
[2021-11-04 17:46] VITALS: BP 154/65; PULSE 111; RESP 16; TEMP 38.2; O2SAT 99
[2021-11-04 17:51] VITALS: BP 154/65; PULSE 111; RESP 16; TEMP 38.2; O2SAT 99
[2021-11-04 18:07] VITALS: TEMP 36.6
== END 2021-11-04 18:07 | disposition home or self-care (01) ==
PROVIDERS: Emergency Provider Nurse Practitioner Family; PCP Hospitalist
DX: L29.9 Pruritus, unspecified (principal); I10 Essential (primary) hypertension; F41.9 Anxiety disorder, unspecified; E78.5 Hyperlipidemia, unspecified
CPT/HCPCS: 99211; G0463

== ENCOUNTER 2021-11-12 09:53 | Outpatient (CLI) | payer MEDICARE, SELFPAY ==
[2021-11-12 18:54] LABS: Hematocrit 38.1 % (37.0-47.0); Mean Corpuscular HGB Conc 31.5 g/dl (32-36); Mean Corpuscular Hemoglobin 29.6 pg (26-34); Mean Corpuscular Volume 94.1 fl (80-100); Mean Platelet Volume 10.5 fl (7.4-10.4); Platelet Count Result 301 k/mm3 (150-375); Red Blood Count 4.05 M/mm3 (4.2-5.4); Red Cell Distribution Width 12.9 % (11.5-14.5); White Blood Count 8.4 K/mm3 (4.5-10.0)
[2021-11-12 18:58] LABS: Alanine Aminotransferase 30 U/L (6-35); Albumin Level 4.2 g/dL (3.5-5.1); Alkaline Phosphatase 75 U/L (38-126); Anion Gap 7 mmol/L (8-16); Aspartate Amino Transferase 43 U/L (14-36); Bilirubin,Total 0.5 mg/dL (0.2-1.3); Blood Urea Nitrogen 25 mg/dL (7-17); Calcium 9.9 mg/dL (8.4-10.2); Carbon Dioxide 26 mmol/L (22-30); Chloride 102 mmol/L (98-107); Cholesterol 180 mg/dL (0-200); Estimated Glomerular Filt Rate 60; Glucose 188 mg/dL (65-110); HDL Direct 50 mg/dL; Potassium 4.9 mmol/L (3.4-5.0); Sodium 135 mmol/L (137-145); Triglycerides 129 mg/dL (<150)
[2021-11-12 19:09] LABS: LDL Cholesterol Direct 91 mg/dL
== END 2021-11-12 09:54 | disposition home or self-care (01) ==
PROVIDERS: PCP Family Medicine; Visit Provider Family Medicine
DX: E78.5 Hyperlipidemia, unspecified (principal); I10 Essential (primary) hypertension; F41.9 Anxiety disorder, unspecified; G62.9 Polyneuropathy, unspecified
CPT/HCPCS: 36415; 80053; 80061; 82607; 85027

== ENCOUNTER 2021-11-15 10:24 | Outpatient (CLI) | payer MEDICARE, SELFPAY ==
[2021-11-15 19:20] LABS: Alanine Aminotransferase 26 U/L (6-35); Albumin Level 4.3 g/dL (3.5-5.1); Alkaline Phosphatase 80 U/L (38-126); Aspartate Amino Transferase 31 U/L (14-36); Bilirubin,Total 0.4 mg/dL (0.2-1.3)
[2021-11-15 19:50] LABS: Hepatitis B Surface Antigen Negative (Negative)
[2021-11-15 19:57] LABS: HAV RESULT Negative (Negative); Hepatitis B Core IgM Result Negative (Negative)
[2021-11-15 20:08] LABS: Hepatitis C Virus Antibody Negative (Negative)
[2021-11-15 20:10] LABS: Hemoglobin A1C 8.6 % (<5.7)
== END 2021-11-15 10:25 | disposition home or self-care (01) ==
PROVIDERS: PCP Family Medicine; Visit Provider Family Medicine
DX: R73.09 Other abnormal glucose (principal); R74.8 Abnormal levels of other serum enzymes; R74.01 Elevation of levels of liver transaminase levels
CPT/HCPCS: 36415; 80074; 80076; 83036

== ENCOUNTER 2021-11-29 11:13 | Outpatient (CLI) | payer MEDICARE, SELFPAY ==
[2021-11-29 19:09] LABS: Alanine Aminotransferase 31 U/L (6-35); Albumin Level 4.4 g/dL (3.5-5.1); Alkaline Phosphatase 71 U/L (38-126); Aspartate Amino Transferase 39 U/L (14-36); Bilirubin,Total 0.5 mg/dL (0.2-1.3)
[2021-11-29 20:30] LABS: Hemoglobin A1C 8.5 % (<5.7)
== END 2021-11-29 11:14 | disposition home or self-care (01) ==
PROVIDERS: PCP Family Medicine; Visit Provider Family Medicine
DX: R74.8 Abnormal levels of other serum enzymes (principal); R73.03 Prediabetes
CPT/HCPCS: 36415; 80076; 83036

== ENCOUNTER 2022-02-28 09:05 | Outpatient (CLI) | payer MEDICARE, SELFPAY ==
[2022-02-28 19:06] LABS: Hemoglobin A1C 6.2 % (<5.7)
== END 2022-02-28 09:06 | disposition home or self-care (01) ==
LOC: ANHBWCLAB 09:07
PROVIDERS: PCP Family Medicine; Visit Provider Family Medicine
DX: E11.9 Type 2 diabetes mellitus without complications (principal); G62.9 Polyneuropathy, unspecified; R42 Dizziness and giddiness; R63.4 Abnormal weight loss
CPT/HCPCS: 36415; 83036; 84443

== ENCOUNTER 2022-06-30 08:46 | Outpatient (CLI) | payer MEDICARE, SELFPAY ==
[2022-06-30 19:21] LABS: Appearance Urine Clear (Clear); Bilirubin Urine Negative (Negative); Blood Urine Trace-intact (Negative); Color Urine Yellow (Yellow); Glucose Urine UA Negative (Negative); Ketones Urine Negative (Negative); Leukocyte Esterase Ur 1+ LEU/UL (NEGATIVE); Nitrate Urine Negative (Negative); Protein Urine Negative (Negative); Urobilinogen Urine 0.2 mg/dL (<2.0)
[2022-06-30 19:31] LABS: Basophils Absolute Auto 0.1 K/mm3 (0.0-0.1); Basophils Percent Auto 0.7 % (0.2-1.2); Eosinophils Absolute Auto 0.2 K/mm3 (0-0.3); Eosinophils Percent Auto 2.4 % (0-4.4); Hematocrit 39.3 % (37.0-47.0); Hemoglobin 12.6 g/dL (12.0-15.0); Immature Granulocyte Absolute 0.01 K/mm3 (0.00-0.031); Immature Granulocyte Percent A 0.1 % (0-0.5); Lymphocytes Absolute Auto 2.89 K/mm3 (0.9-3.2); Lymphocytes Percent Auto 39.1 % (18.3-44.2); Mean Corpuscular HGB Conc 32.1 g/dl (32-36); Mean Corpuscular Hemoglobin 29.7 pg (26-34); Mean Corpuscular Volume 92.7 fl (80-100); Mean Platelet Volume 10.9 fl (7.4-10.4); Monocytes Absolute Auto 0.5 K/mm3 (0.1-0.6); Monocytes Percent Auto 6.8 % (2.6-8.5); Neutrophils Absolute Auto 3.8 K/mm3 (1.3-6.7); Neutrophils Percent Auto 50.9 % (45.5-73.1); Platelet Count Result 214 k/mm3 (150-375); Red Blood Count 4.24 M/mm3 (4.2-5.4); Red Cell Distribution Width 12.8 % (11.5-14.5); White Blood Count 7.4 K/mm3 (4.5-10.0)
[2022-06-30 19:48] LABS: Mucus Urine Rare /lpf; RBC Urine 0-2 /hpf (0-2); Squamous Epithelial Cell Urine Few /hpf (Few)
[2022-06-30 19:55] LABS: Add Urine Microscopic? YES
[2022-06-30 20:11] LABS: Alanine Aminotransferase 21 U/L (6-35); Albumin Level 4.7 g/dL (3.5-5.1); Alkaline Phosphatase 58 U/L (38-126); Anion Gap 9 mmol/L (8-16); Aspartate Amino Transferase 57 U/L (14-36); Bilirubin,Total 0.7 mg/dL (0.2-1.3); Blood Urea Nitrogen 43 mg/dL (7-17); Calcium 10.1 mg/dL (8.4-10.2); Carbon Dioxide 27 mmol/L (22-30); Chloride 105 mmol/L (98-107); Estimated Glomerular Filt Rate 53; Glucose 127 mg/dL (65-110); Potassium 4.5 mmol/L (3.4-5.0); Sodium 141 mmol/L (137-145)
[2022-06-30 20:23] LABS: Creatinine Urine 80.4 mg/dL
[2022-06-30 20:30] LABS: MALB Creatinine Ratio 10.4 mg/g (0-30); Microalbumin Urine Random 8.4 mg/L (0-16.7)
[2022-06-30 21:47] LABS: Hemoglobin A1C 6.3 % (<5.7)
== END 2022-06-30 08:47 | disposition home or self-care (01) ==
PROVIDERS: PCP Family Medicine; Visit Provider Family Medicine
DX: E11.9 Type 2 diabetes mellitus without complications (principal); G62.9 Polyneuropathy, unspecified; R42 Dizziness and giddiness; M81.0 Age-related osteoporosis without current pathological fracture
CPT/HCPCS: 36415; 80053; 81001; 82043; 82607; 83036; 84443; 85025

== ENCOUNTER 2022-08-09 11:13 | Outpatient (CLI) | payer MEDICARE, SELFPAY ==
[2022-08-10 00:36] LABS: Appearance Urine Clear (Clear); Bacteria Urine None Seen /hpf; Bilirubin Urine Negative (Negative); Blood Urine Negative (Negative); Color Urine Yellow (Yellow); Glucose Urine UA 3+ mg/dL (Negative); Ketones Urine Negative (Negative); Leukocyte Esterase Ur 1+ LEU/UL (Negative); Nitrate Urine Negative (Negative); Non Pathogenic Casts 0-2; Protein Urine Negative (Negative); RBC Urine 0-2 /hpf (0-2); Specific Grav Ur 1.014 (1.001-1.035); Squamous Epithelial Cell Urine Few /hpf (Few); Urobilinogen Urine 0.2 mg/dL (<2.0); pH Urine 5.5 (5.0-9.0)
[2022-08-10 00:46] LABS: Add Urine Microscopic? YES
== END 2022-08-09 11:14 | disposition home or self-care (01) ==
PROVIDERS: PCP Family Medicine; Visit Provider Family Medicine
DX: R31.9 Hematuria, unspecified (principal)
CPT/HCPCS: 81001; 87077; 87086; 87088

== ENCOUNTER 2022-12-15 11:27 | Outpatient (CLI) | payer MEDICARE, SELFPAY ==
[2022-12-15 19:27] LABS: Hematocrit 37.7 % (37.0-47.0); Hemoglobin 11.7 g/dL (12.0-15.0); Mean Corpuscular Hemoglobin 29.3 pg (26-34); Mean Corpuscular Volume 94.5 fl (80-100); Mean Platelet Volume 11.1 fl (7.4-10.4); Platelet Count Result 211 k/mm3 (150-375); Red Blood Count 3.99 M/mm3 (4.2-5.4); Red Cell Distribution Width 13.5 % (11.5-14.5); White Blood Count 9.5 K/mm3 (4.5-10.0)
[2022-12-15 19:33] LABS: Alanine Aminotransferase 23 U/L (6-35); Albumin Level 4.5 g/dL (3.5-5.1); Alkaline Phosphatase 48 U/L (38-126); Anion Gap 6 mmol/L (8-16); Aspartate Amino Transferase 59 U/L (14-36); Bilirubin,Total 0.6 mg/dL (0.2-1.3); Blood Urea Nitrogen 38 mg/dL (7-17); Calcium 9.8 mg/dL (8.4-10.2); Carbon Dioxide 29 mmol/L (22-30); Chloride 106 mmol/L (98-107); Estimated Glomerular Filt Rate 33; Glucose 150 mg/dL (65-110); Potassium 4.1 mmol/L (3.4-5.0); Sodium 141 mmol/L (137-145)
== END 2022-12-15 11:28 | disposition home or self-care (01) ==
LOC: ANHBWCLAB 11:29
PROVIDERS: PCP Family Medicine; Visit Provider Family Medicine
DX: Z00.00 Encounter for general adult medical examination without abnormal findings (principal); E11.9 Type 2 diabetes mellitus without complications; F41.9 Anxiety disorder, unspecified; I10 Essential (primary) hypertension; R74.8 Abnormal levels of other serum enzymes
CPT/HCPCS: 36415; 80053; 83036; 85027

== ENCOUNTER 2023-03-09 15:38 | Emergency (ER) | payer MEDICARE, SELFPAY ==
[2023-03-09 15:48] VITALS: BP 145/70; PULSE 98; RESP 18; TEMP 36.8; O2SAT 97
--- NOTE | 2023-03-09 15:58 | ED.SKABFB ---
HPI - Skin/Abscess/Foreign Bdy General Stated complaint: Rash Time Seen by Provider: 03/09/23 15:55 Source: patient Mode of arrival: ambulatory Limitations: no limitations History of Present Illness HPI narrative: Jumana is a 87-year-old female patient presenting to clinic today with complaints of a itchy red rash on her face, neck, and arms. She denies any new environmental changes. Noticed a rash starting on Monday. She states she was wearing a necklace that felt as though it was pinching her. Denies any known fever or chills. Related Data Allergies Allergy/AdvReac Type Severity Reaction Status Date / Time No Known Allergies Allergy Verified 03/09/23 15:59 Review of Systems Review of Systems: Pertinent positives per HPI. Patient denies any fever, chills, headache, visual changes, dizziness, cough, runny nose, sore throat, shortness of breath, chest pain, palpitations, nausea, vomiting, diarrhea, constipation, abdominal pain, or any urinary issues. [facility] Past Medical History Medical History (Updated 03/09/23 @ 16:00 by Erik Nunez APRN) Anxiety HTN (hypertension) Hyperlipidemia Surgical History Surgical History History of cholecystectomy History of ear surgery Family History Family History Father Depression Mother Hypertension Sibling Hypertension Social History Social History Smoking status: Never smoker Alcohol intake: never Substance use: never Lack of Transportation: No Lack of Food: Never True Current Housing: I Have Housing Concerned About Future Housing: No Difficulty Paying Gas/Electric Bills: No Difficulty Paying for Meds: No Currently Unemployed: No Education: High School Diploma/GED Difficulty w/ Childcare or Family Care: No Living arrangements: alone Spiritual care concerns: No Comments At the time of my signature, I reviewed and agree with the nursing past medical, surgical, social, and family history. There is no relevant family history pertinent to the patient complaint. Exam Narrative: General: Well-developed, well nourished, in no apparent distress Head: Normocephalic, atraumatic. Cardio: Regular rate and rhythm, s1 and s2 normal, no murmur appreciated. Resp: Clear to auscultation bilaterally, no rhonchi, rales, wheezing or rubs. Integumentary: [place], warm, and dry, intact without lesion, red, raised, scaly itchy appearing rash to the neck, head, face, and arms Course Course Emergency Course: Portions of this record may have been created with voice recognition software. Level of Care: Express Care Visit Vital Signs Vital signs: Vital Signs Temperature 36.8 C 03/09/23 15:48 Pulse Rate 98 03/09/23 15:48 Respiratory Rate 18 03/09/23 15:48 Blood Pressure 145/70 H 03/09/23 15:48 Pulse Oximetry 97 03/09/23 15:48 Oxygen Delivery Room Air 03/09/23 15:48 Temperature 36.8 C 03/09/23 15:48 Pulse Rate 98 03/09/23 15:48 Respiratory Rate 18 03/09/23 15:48 Blood Pressure 145/70 H 03/09/23 15:48 Pulse Oximetry 97 03/09/23 15:48 Oxygen Delivery Room Air 03/09/23 15:48 Vital signs reviewed MDM - Skin/Abscess/Foreign Bdy MDM Narrative Medical decision making narrative: At the time of visit patient is resting comfortably on the exam table. I suspect patient has dermatitis. Prescription for prednisone was sent to the pharmacy. Supportive measures were discussed with the patient she voiced understanding discharge instructions agrees to treatment plan Differential Diagnosis Differential diagnosis: Likely abscess of skin or subcutaneous tissue, urticaria, herpes zoster, allergic reaction to drug, cellulitis, eczema, insect bites, impetigo and contact dermatitis Discharge Plan Discharge Clinical Impression: Dermatitis
== END 2023-03-09 16:05 | disposition home or self-care (01) ==
PROVIDERS: Emergency Provider Nurse Practitioner Family; PCP Family Medicine
DX: L30.9 Dermatitis, unspecified (principal); I10 Essential (primary) hypertension; E78.5 Hyperlipidemia, unspecified
CPT/HCPCS: 99213; G0463

== ENCOUNTER → 2023-03-15 09:29 | Outpatient (CLI) | payer MEDICARE, SELFPAY ==
--- NOTE | ~2023-03-15 | DEXA_ITS ---
Bone Density Report Name: SWATHI GRIMES Age: 87 Sex: Female Ethnicity: White Date of : 1935 Indication: postmenopausal; screening for osteoporosis; height loss; hysterectomy; Referring Provider: SAHIL TALLEY Study: Bone densitometry was performed. Exam Date: March 15, 2023 Accession number: [id number] Bone Density: Region BMD T-score Z-score Classification AP Spine (L1-L4) 0.961 -0.8 2.1 Normal Femoral Neck (Left) 0.653 -1.8 0.8 Osteopenia Total Hip (Left) 0.843 -0.8 1.5 Normal Femoral Neck (Right) 0.655 -1.8 0.8 Osteopenia Total Hip (Right) 0.788 -1.3 1.1 Osteopenia Total Hip Mean 0.816 -1.1 1.3 Osteopenia World Health Organization criteria for BMD impression classify patients as: Normal (T-score at or above -1.0), Osteopenia (T-score between -1.0 and -2.5), or Osteoporosis (T-score at or below -2.5). 10-year Fracture Risk(1): Major Osteoporotic Fracture 13% Hip Fracture 4.0% Reported Risk Factors: [place] (), Neck BMD=0.655, BMI=27.4 (1) FRAX(R) Version 3.08. Fracture probability calculated for an untreated patient. Fracture probability may be lower if the patient has received treatment. Clinical Information Provided by Patient: Has used the following medications: Vitamin D, Calcium Has the following medical conditions: Hysterectomy Patient maximum height was 62 Menopause Age: 45 Drinks caffeinated beverages Onset of menses at age 13 Number of children 5 Impression: The patient has low bone mass, based on the Left Femoral Neck T-score. The patient has an estimated ten-year risk of hip fracture of 4% and an estimated ten-year risk of major fracture of 13%, based on the WHO FRAX algorithm. Discussion: BONE DENSITY IS LOW AT ONE OR MORE SKELETAL SITES. THE PATIENT'S BMD AND CLINICAL RISK FACTORS CONTRIBUTE TO THIS PATIENT'S INCREASED RISK OF FRACTURE. This patient's lowest T-score is low at one or more skeletal sites. It meets the World Health Organization's (WHO) criteria for ?low bone mass? (T-score between -1.0 and -2.5). The patient's 10-year risk of hip fracture as calculated by FRAX exceeds the threshold where pharmacological therapy is recommended by the National Osteoporosis Foundation (NOF). However, all treatment decisions require clinical judgment and consideration of individual patient factors, including patient preferences, comorbidities, previous drug use, risk factors not captured in the FRAX model (e.g., frailty, falls, vitamin D deficiency, increased bone turnover, interval significant decline in bone density) and possible under or overestimation of fracture risk by FRAX. The patient should follow a healthful lifestyle (good nutrition with adequate calcium and vitamin D, and appropriate weight-bearing exercise). Follow-Up: Consider a repeat BMD and Ve
== END ==
PROVIDERS: PCP Family Medicine; Visit Provider Family Medicine
DX: M81.0 Age-related osteoporosis without current pathological fracture (principal); M85.852 Other specified disorders of bone density and structure, left thigh; M85.851 Other specified disorders of bone density and structure, right thigh
CPT/HCPCS: 77080

== ENCOUNTER 2023-08-10 08:47 | Outpatient (CLI) | payer MEDICARE, SELFPAY ==
[2023-08-10 19:23] LABS: Alanine Aminotransferase 18 U/L (6-35); Albumin Level 4.6 g/dL (3.5-5.1); Alkaline Phosphatase 67 U/L (38-126); Anion Gap 7 mmol/L (8-16); Aspartate Amino Transferase 36 U/L (14-36); Bilirubin,Total 0.6 mg/dL (0.2-1.3); Blood Urea Nitrogen 31 mg/dL (7-17); Calcium 10.3 mg/dL (8.4-10.2); Carbon Dioxide 27 mmol/L (22-30); Chloride 105 mmol/L (98-107); Cholesterol 173 mg/dL (0-200); Estimated Glomerular Filt Rate 52; Glucose 115 mg/dL (65-110); HDL Direct 61 mg/dL; Potassium 4.3 mmol/L (3.4-5.0); Sodium 139 mmol/L (137-145); Triglycerides 115 mg/dL (<150)
[2023-08-10 19:36] LABS: Hematocrit 42.2 % (37.0-47.0); Mean Corpuscular HGB Conc 30.8 g/dl (32-36); Mean Corpuscular Hemoglobin 29.5 pg (26-34); Mean Corpuscular Volume 95.9 fl (80-100); Mean Platelet Volume 11.3 fl (7.4-10.4); Platelet Count Result 193 k/mm3 (150-375); Red Cell Distribution Width 13.2 % (11.5-14.5); White Blood Count 6.8 K/mm3 (4.5-10.0)
[2023-08-10 19:37] LABS: LDL Cholesterol Direct 81 mg/dL
[2023-08-10 20:22] LABS: Appearance Urine Clear (Clear); Color Urine Yellow (Yellow)
[2023-08-10 20:23] LABS: Bacteria Urine None Seen /hpf; Bilirubin Urine Negative (Negative); Blood Urine Negative (Negative); Glucose Urine UA 3+ mg/dL (Negative); Ketones Urine Negative (Negative); Leukocyte Esterase Ur 2+ LEU/UL (NEGATIVE); Nitrate Urine Negative (Negative); Non Pathogenic Casts 0-2; Protein Urine Negative (Negative); RBC Urine 0-2 /hpf (0-2); Specific Grav Ur 1.019 (1.001-1.035); Squamous Epithelial Cell Urine Moderate /hpf (Few); Urobilinogen Urine 0.2 mg/dL (<2.0); WBC Urine 21-50 /hpf (0-3)
[2023-08-10 20:25] LABS: Add Urine Microscopic? YES
[2023-08-10 20:30] LABS: Vitamin D 25 Hydroxy 34.2 ng/mL
[2023-08-10 21:57] LABS: Hemoglobin A1C 6.3 % (<5.7)
== END 2023-08-10 08:48 | disposition home or self-care (01) ==
PROVIDERS: PCP Family Medicine; Visit Provider Family Medicine
DX: E11.9 Type 2 diabetes mellitus without complications (principal); E78.5 Hyperlipidemia, unspecified; R53.83 Other fatigue; R74.8 Abnormal levels of other serum enzymes; R52 Pain, unspecified; F41.9 Anxiety disorder, unspecified; G62.9 Polyneuropathy, unspecified; R63.4 Abnormal weight loss; Z79.899 Other long term (current) drug therapy; I12.9 Hypertensive chronic kidney disease with stage 1 through stage 4 chronic kidney disease, or unspecified chronic kidney disease; N18.9 Chronic kidney disease, unspecified
CPT/HCPCS: 36415; 80053; 80061; 81001; 82306; 83036; 84443; 85027; 87086; 87088

== ENCOUNTER 2024-02-19 10:08 | Outpatient (CLI) | payer MEDICARE, SELFPAY ==
[2024-02-19 18:25] LABS: Hematocrit 40.2 % (37.0-47.0); Hemoglobin 12.4 g/dL (12.0-15.0); Mean Corpuscular HGB Conc 30.8 g/dl (32-36); Mean Corpuscular Hemoglobin 29.6 pg (26-34); Mean Corpuscular Volume 95.9 fl (80-100); Mean Platelet Volume 11.1 fl (7.4-10.4); Platelet Count Result 204 k/mm3 (150-375); Red Blood Count 4.19 M/mm3 (4.2-5.4); Red Cell Distribution Width 13.5 % (11.5-14.5); White Blood Count 9.2 K/mm3 (4.5-10.0)
[2024-02-19 19:05] LABS: Potassium 4.7 mmol/L (3.4-5.0)
[2024-02-19 19:09] LABS: Alanine Aminotransferase 16 U/L (6-35); Albumin Level 4.6 g/dL (3.5-5.1); Alkaline Phosphatase 64 U/L (38-126); Anion Gap 13 mmol/L (4-12); Aspartate Amino Transferase 59 U/L (14-36); Bilirubin,Total 0.6 mg/dL (0.2-1.3); Blood Urea Nitrogen 47 mg/dL (7-17); Calcium 9.7 mg/dL (8.4-10.2); Carbon Dioxide 23 mmol/L (22-30); Chloride 99 mmol/L (98-107); Cholesterol 164 mg/dL (0-200); Estimated Glomerular Filt Rate 42; Glucose 115 mg/dL (65-110); HDL Direct 62 mg/dL; Sodium 135 mmol/L (137-145); Triglycerides 105 mg/dL (<150)
[2024-02-19 19:17] LABS: LDL Cholesterol Direct 61 mg/dL
[2024-02-19 19:26] LABS: MALB Creatinine Ratio 60.8 mg/g (0-30); Microalbumin Urine Random 43.2 mg/L (0-16.7)
[2024-02-19 19:33] LABS: Hemoglobin A1C 6.2 % (<5.7)
[2024-02-19 20:40] LABS: Vitamin D 25 Hydroxy 43.3 ng/mL
[2024-02-21 10:54] LABS: Ionized Calcium 5.3 mg/dL (4.7-5.5)
== END 2024-02-19 10:09 | disposition home or self-care (01) ==
LOC: ANHBWCLAB 10:10
PROVIDERS: PCP Family Medicine; Visit Provider Family Medicine
DX: E11.9 Type 2 diabetes mellitus without complications (principal); E78.5 Hyperlipidemia, unspecified; F41.9 Anxiety disorder, unspecified; G62.9 Polyneuropathy, unspecified; M81.0 Age-related osteoporosis without current pathological fracture; R53.83 Other fatigue; R74.8 Abnormal levels of other serum enzymes; E83.52 Hypercalcemia; I12.9 Hypertensive chronic kidney disease with stage 1 through stage 4 chronic kidney disease, or unspecified chronic kidney disease; N18.9 Chronic kidney disease, unspecified
CPT/HCPCS: 36415; 80053; 80061; 82043; 82306; 82330; 82607; 83036; 85027

== ENCOUNTER 2024-07-03 12:48 | Outpatient (CLI) | payer MEDICARE, SELFPAY ==
--- OUTSIDE RECORDS SUMMARY | 2024-07-03 13:41 | XMS_ITS | Encounter Summary ---
Author Organization [facility] Address [address] 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 Role Phone Sahil Talley MD Primary Care Provider [phone] Reason for Visit * Reason Comments Food Bolus * Auth/Cert (Routine) Specialty Diagnoses / Procedures Referred By Deshaun t Referred To Contact Diagnoses Food bolus obstruction of intestine (HCC) Ifrah Burch MD [address] [place] [address] Phone: tel: fax: Referral ID Status Reason Start Date Expiration Date Visits Re quested Visits Authorized [id number] 1 Encounter Details Date Type Department Care Team (Late st Contact Info) Description 07/02/2024 2:30 PM RECEIVING LEAD - 07/02/2024 3:00 PM RECEIVING LEAD [facility] Per[facility] [address] [place] [id number] Lawrence Ibarra MD [address] [address] EGD - 48F THOMASON DILATION, NO FOOD BOLUS Surgery Details Date/Time Status Location OR Service Patient Class Case Class Case Type Trauma Case? 07/02/2024 2:30 PM Posted [facility] GI 01 General Emergency Emergent Panel 1 Procedure LRB Anes Op Region Wound Class Comments EGD - 48F THOMASON DILATION, NO FOOD BOLUS N/A Monitored Anesthesia Care Surgeon Surgeon Role Service Panel Lawrence Ibarra MD Primary General 1 documented in this encounter Social History Tobacco Use Types Packs/Day Years Used Date Smoking Tobacco: Never Smokeless Tobacco: Never Alcohol Use Standard Drinks/Week Comments No 0 (1 standard drink = 0.6 oz pur e alcohol) PHQ-2 Answer Date Recorded Total Score - Questions 1-9 0 07/06 Comments No Sex and Gender Information Value Date Recorded Sex Assigned at Not on file Legal Sex Female 11:52 PM CDT Gender Identity Not on file Sexual Orientation Not on file documented as of this encounter Last Filed Vital Signs Vital Sign Reading Time Taken Comments Blood Pressure 165/84 07/02/2024 2:49 PM RECEIVING LEAD Pulse 97 07/02/2024 1:34 PM RECEIVING LEAD Temperature 36.2 ??C (97.2 ??F) 07/02/2024 2:49 PM CS T Respiratory Rate 17 07/02/2024 2:49 PM RECEIVING LEAD Oxygen Saturation 98% 07/02/2024 2:49 PM RECEIVING LEAD Inhaled Oxygen Concentration - - Weight 61.7 kg (136 lb) 07/02/2024 1:34 PM RECEIVING LEAD Height 162.6 cm (5' 4 ) 07/02/2024 1:34 PM RECEIVING LEAD Body Mass Index 23.34 07/02/2024 1:34 PM RECEIVING LEAD documented in this encounter Discharge Instructions * Discharge Instructions* Sima Sherwood RN - 07/02/2024 3:19 PM RECEIVING LEAD YOU HAD AN EGD TODAY. DR. IBARRA FOUND: NO FOOD BOLUS ESOPHAGEAL DILATION DONE DO NOT DRIVE, WORK, OPERATE MACHINERY OR USE POWER TOOLS UNTIL DAY AFTER PROCEDURE. NO ALCOHOL BEVERAGES TODAY FOLLOWING DAY: RETURN TO FULL ACTIVITY, INCLUDING WORK, UNLESS INSTRUCTED OTHERWISE. Call doctor's office ([phone]) or go to Emergency room for: Difficulty Breathing, Headache Or Visual Disturbances Persistent Dizziness Or Light-Headedness Persistent Nausea and Vomiting Temperature greater then 100.0 Significant abdominal pain, chest pain, or bleeding. Here at [facility] we strive to provide excellent care to each of our patients, along with an easy transition between departments, starting with registration until discharge. Through our excellent care and services, we hope that you would recommend our services to your family and friends. You will receive a follow-up phone call in 24-48 hours after your procedure to see how you are doing. This gives our patients the opportunity to recognize any members from our team, from housekeepers, to nurses, to physicians, that you felt gave you excellent service as well as any suggestions for improvement. We hope you found our facility clean and our mission partners courteous. You may also receiving a survey in the mail. We would appreciate it if you could complete the form and return it. A self addressed pre-paid envelope is provided. THANK YOU FOR CHOOSING [facility]. IVING LEAD documented in this encounter Medications at Time of Discharge atorvastatin (LIPITOR) 10 MG Tablet Take 1 Tab by mouth daily. 90 Tab 1 04/16/2020 Cholecalciferol (VITAMIN D PO) Take 1 Tab by mouth daily. Empagliflozin (JARDIANCE PO) Take by mouth. furosemide (LASIX) 20 MG Tablet TAKE 1 TABLET BY MOUTH EVERY DAY 30 Tab 2 05/07/2020 HYDROCHLOROTHIAZ JAMES PO Take by mouth. LISINOPRIL PO Take by mouth. metoprolol tartrate (LOPRESSOR) 25 MG Tablet Take 1/2 tab po bid. Chg from Carvedilol 30 Tablet 3 07/31/2020 Multiple Vitamin (CALCIUM COMPLEX PO) Take 1 Tab by mouth daily. omeprazole (PRILOSEC) 20 MG CAPSULE DELAYED RELEASE Take 20 mg by mouth every morning. quinapril (ACCUPRIL) 40 MG Tablet TAKE 1 TABLET BY MOUTH TWICE A DAY 180 Tablet 02/19/2021 documented as of this encounter Consult Notes * Lawrence Ibarra MD - 07/02/2024 2:57 PM CSTAssociated Order(s): IP CONSULT TO GI [facility] ADMISSION HISTORY & PHYSICAL Chief Complaint: Retained food bolus Assessment/Plan: Active Hospital Problems Diagnosis Date Noted Food bolus obstruction of intestine (HCC) 07/02/2024 Resolved Hospital Problems No resolved problems to display. Plan Plan: EGD with advancement of food bolus possible dilation Disposition: Discharge home postprocedure Code Status: Code Status: No Order 4. VTE Prophylaxis: Not indicated Treatment Team: Consulting Physician: Lawrence Ibarra MD I have explained the risks, benefits and alternatives including but not limited to infection, perforation, bleeding and possible need for subsequent procedure. All questions were answered and the patient is willing to proceed. Thank you very much for allowing the [facility] Adult Hospitalist Service to participate in the care of this patient HPI: Valerie Fonseca is a 88 y.o. female who presented to [facility] with complaints of retained food bolus. She states that she was eating a pork roast last night and developed dysphagia while eating it. She has had previous episodes of dysphagia and has been dilated at least 4 times. At present she is able to tolerate her saliva but feels that she still has difficulty passing swallowedsaliva or water. She denies pain she denies weight loss she denies vomiting of blood. Allergies: has no known allergies. Home Medications: Prior to Admission Medications Prescriptions Last Dose Informant Patient Reported? Taking? Cholecalciferol (VITAMIN D PO) Yes No Sig: Take 1 Tab by mouth daily. Empagliflozin (JARDIANCE PO) 07/01/2024 Yes Yes Sig: Take by mouth. HYDROCHLOROTHIAZIDE PO 07/01/2024 Yes Yes Sig: Take by mouth. LISINOPRIL PO 07/01/2024 Yes Yes Sig: Take by mouth. Multiple Vitamin (CALCIUM COMPLEX PO) Yes No Sig: Take 1 Tab by mouth daily. atorvastatin (LIPITOR) 10 MG Tablet 07/01/2024 No Yes Sig: Take 1 Tab by mouth daily. furosemide (LASIX) 20 MG Tablet Not Taking No No Sig: TAKE 1 TABLET BY MOUTH EVERY DAY Patient not taking: Reported on 07/02/2024 metoprolol tartrate (LOPRESSOR) 25 MG Tablet Not Taking No No Sig: Take 1/2 tab po bid. Chg from Carvedilol Patient not taking: Reported on 07/02/2024 omeprazole (PRILOSEC) 20 MG CAPSULE DELAYED RELEASE Yes No Sig: Take 20 mg by mouth every morning. quinapril (ACCUPRIL) 40 MG Tablet Not Taking No No Sig: TAKE 1 TABLET BY MOUTH TWICE A DAY Patient not taking: Reported on 07/02/2024 Facility-Administered Medications: None Past Medical History: She has a past medical history of Anxiety, Esophageal dysmotility, Esophagealstricture, HLD (hyperlipidemia), HTN (hypertension), Neuropathy, and Vitamin D deficiency. Surgical History: has a past surgical history that includes removal gallbladder; EGD; Colonoscopy; External Ear Surgery; Cholecystectomy; Upper Gastrointestinal Endoscopy (N/A, 07/10/2018); and Upper Gastrointestinal Endoscopy (N/A, 01/20/2020). Social History: reports that she has never smoked. She has never used smokeless tobacco. She reports that she does not drink alcohol and does not use drugs. Family History: family history includes Cancer in an other family member; Heart Attack in her mother; Hypertension in her mother; No Known Problems in her father. Review of Systems: All systems reviewed and are negative except what is mentioned in HPI. Physical Exam: VITALS:Temp Av.2 ??F (36.2 ??C) Min: 97.2 ??F (36.2 ??C) Max: 97.2 ??F (36.2 ??C) BP Min: 165/84 Max: 167/86 Pulse Av Min: 97 Max: 97 Heart Rate (Monitor) Av Min: 97 Max: 97 Resp Av Min: 17 Max: 17 SpO2 Av % Min: 98 % Max: 100 % No intake/output data recorded. Weight: Wt Readings from Last 1 Encounters: 07/02/24 136 lb (61.7 kg) General: alert, oriented and in no acute distress. Skin: normal coloration and turgor, no rashes. HEENT: normocephalic, atraumatic. Pupils equal, round and reactive to light. Extraocular movements intact. Oronasopharynx pink and moist, no lesion or exudate. Neck: Supple. No JVD, lymphadenopathy thyromegaly or carotid bruits auscultated. CVS: RRR, S1/S2 normal, no murmurs, gallops or rubs. Chest: clear to auscultation, no wheezes, rales or rhonchi, symmetric air entry and normal respiratory effort. Abdominal: soft, nontender, nondistended. Positive Bowel sounds, no organomegaly appreciated. Extremities: no edema, no clubbing or cyanosis. Neuro: CN 2-12 grossly intact, normal speech, no focal findings or movement disorder noted. Gait not tested.. Data Review: No results found. Lab Results Component Value Date WBC 7.96 07/02/2024 HEMOGLOBIN 14.1 07/02/2024 PLATELETCNT 183 07/02/2024 MCV 90.5 07/02/2024 Lab Results Component Value Date SODIUM 142 07/02/2024 POTASSIUM 4.4 07/02/2024 CHLORIDE 108 (H) 07/02/2024 CO2VEN 24 07/02/2024 ANIONGAP 14.4 07/02/2024 GLUCOSE 109 (H) 07/02/2024 BUN 44 (H) 07/02/2024 CREATININE 1.30 (H) 07/02/2024 BCRATIO8 34 (H) 07/02/2024 TOTALPROTEIN 9.0 (H) 07/02/2024 ALBUMIN 4.8 07/02/2024 CALCIUM 10.5 07/02/2024 TBIL 0.6 07/02/2024 SGOTAST 21 07/02/2024 SGPTALT 17 07/02/2024 ALKALINEPHO 58 07/02/2024 GFRNA 39 (L) 07/02/2024 GFRA 47 (L) 07/02/2024 No results found for: PHARTERIAL , PO2ART , KMS2HLS , CO2ART , O2ART Lab Results Component Value Date TROPONINI <0.300 08/31/2020 No results found for: AMYL , AMYLASE No results found for: LIPASE No results found for: CHOLESTEROL , TRIGLYCRIDES , HDLCHOLESTE , LDL By: Lawrence Ibarra MD, 07/02/2024, 2:57 PM RECEIVING LEAD Primary Care Physician: SAHIL TALLEY MD IVING LEAD documented in this encounter OR Notes * OR Surgeon - Lawrence Ibarra MD - 07/02/2024 3:20 PM CST GI EGD PROCEDURE REPORT Patient: Valerie Fonseca Physician: Lawrence Ibarra MD Exam Date: 07/02/2024 Referring Physician: Emergency department Introduction: Valerie Fonseca is a pleasant 88 y.o. female who presents for an Esophagogastroduodenoscopy. Pre-operative Diagnosis: FOOD BOLUS Post-operative Diagnosis: EGD - 48F THOMASON DILATION, NO FOOD BOLUS Procedure(s): Procedure(s): EGD - 48F THOMASON DILATION, NO FOOD BOLUS Indications: Patient reported to ER physician that patient had dysphagia of solid and liquid foods as well as inability to swallow liquids. Consent: The benefits, risks (including perforation, hemorrhage, reactions to the anesthesia medications, and infection), and alternatives to the procedure were discussed and informed consent was obtained from the patient. Preparation: A time out was performed before the procedure confirming the correct patient, indications, and equipment. EKG, pulse, pulse oximetry, and blood pressure were monitored throughout the procedure. Medications: Per Anesthesia monitored anesthesia care Procedure: The endoscope was passed through the mouth under direct visualization and was advanced to the 2nd portion of the duodenum. The scope was withdrawn and the mucosa and mucosal folds were carefully examined. The views were good. The patient tolerated the procedure well . Complications: No immediate complications. Findings: Normal-appearing esophagus with no evidence of stricture or erosion. Esophagus: The entire length of the esophagus was normal the Z-line was noted to be 32 cm. The proximal, mid and distal esophagus was viewed to be normal. I did pass a 48 [place] Thomason dilator and re-evaluated with the endoscope. No lacerations or a dramatic change to the esophageal mucosa was noted Stomach: The stomach was noted to be empty the antrum body cardia fundus were then examined there were noted to be normal the pylorus was then entered Duodenum: The 1st part 2nd part 3rd part and 4th part of the duodenal were inspected there were noted to be normal Unplanned Events: There were no unplanned events Estimated Blood Loss: Minimal to None Pathology Specimens: None Photo Documentation: See scanned photos Impression/Summary: -Esophagogastroduodenoscopy with Thomason dilation Follow up with Lawrence Ibarra MD or my Nurse practitioner in the GI Medicine clinic in 2-4 weeks or as previously scheduled, or with usual GI Physician per patient preferences Lawrence Ibarra MD Gastroenterology IVING LEAD documented in this encounter ED Notes * Nivia De Jesus RN - 07/02/2024 2:31 PM CST Surgery personnel at bedside explaining procedure to patient. IVING LEAD * Juan Licea RN - 07/02/2024 2:02 PM CST Pt medicated per provider orders. Pt educated on intended effects and side effects of medication and verbalized understanding, able to provide teach back of education. IVING LEAD * Joon Gallegos RN - 07/02/2024 1:35 PM CST Pt to ed room 11C with c/o pork roast stuck in her esophagus. Pt states that she ate it last night and it felt like it was stuck. Today she had went to work and drank a drink of water and started to have pain in her esophagus region. Denies any other sx at this time. States a hx of stricture. IVING LEAD * Sahil Coles DO - 07/02/2024 1:35 PM CSTAssociated Order(s): Critical Care Chief Complaint Patient presents with Food Bolus 88-year-old female complains of esophageal obstruction, started last night, pot roast, tried a shake but vomited afterwards, unable to tolerate liquids since however she is tolerating spit. She does not have any airway concerns. She has been stretched multiple times with upper endoscopy, last time was in 2007. She denies any recent illness or sick contacts or recent travel. Review of systems negative otherwise. Current Facility-Administered Medications Medication Dose Route Frequency Provider Last Rate Last Admin ondansetron (ZOFRAN) injection 4 mg 4 mg Intravenous Q6H PRN Sahil Coles DO 4 mg at 07/02/24 1411 Current Outpatient Medications Medication Sig Dispense Refill atorvastatin (LIPITOR) 10 MG Tablet Take 1 Tab by mouth daily. 90 Tab 1 Cholecalciferol (VITAMIN D PO) Take 1 Tab by mouth daily. furosemide (LASIX) 20 MG Tablet TAKE 1 TABLET BY MOUTH EVERY DAY 30 Tab 2 metoprolol tartrate (LOPRESSOR) 25 MG Tablet Take 1/2 tab po bid. Chg from Carvedilol 30 Tablet 3 Multiple Vitamin (CALCIUM COMPLEX PO) Take 1 Tab by mouth daily. omeprazole (PRILOSEC) 20 MG CAPSULE DELAYED RELEASE Take 20 mg by mouth every morning. quinapril (ACCUPRIL) 40 MG Tablet TAKE 1 TABLET BY MOUTH TWICE A DAY 180 Tablet 0 No Known Allergies Past Medical History Positives Diagnosis Date Anxiety Esophageal dysmotility Esophageal stricture HLD (hyperlipidemia) HTN (hypertension) Neuropathy Vitamin D deficiency Past Surgical History: Procedure Laterality Date CHOLECYSTECTOMY COLONOSCOPY 5 years ago EGD with dilitation x3 EXTERNAL EAR SURGERY mastoid REMOVAL GALLBLADDER UPPER GASTROINTESTINAL ENDOSCOPY N/A 07/10/2018 Procedure: EGD KASEY TEST, GASTRIC POLYP,GE JUN[place] BIOPSIES,54 [place] THOMASON DILATION, GASTRITIS, ESOPHAGITIS, MILD ESOPHAGEAL STRICTURE, SMALL HIATAL HERNIA, MILD DYSMOTILITY; Surgeon: Shima Fontana DO; Location: [facility]; Service: Gastroenterology UPPER GASTROINTESTINAL ENDOSCOPY N/A 01/20/2020 Procedure: EGD, GASTRIC POLYP, KASEY TEST, ESOPHAGEAL DYSMOTILITY; Surgeon: Joseph Fontana DO; Location: [facility]; Service: Gastroenterology Social History Socioeconomic History Marital status: Spouse name: Not on file Number of children: Not on file Years of education: Not on file Highest education level: Not on file Occupational History Not on file Tobacco Use Smoking status: Never Smokeless tobacco: Never Vaping Use Vaping status: Never Used Substance and Sexual Activity Alcohol use: No Drug use: No Sexual activity: Not on file Other Topics Concern Not on file Social History Narrative Not on file Social Drivers of Health Financial Resource Needs: Not on file Food Insecurity Needs: Not on file Transportation Needs: Not on file Physical Activity: Not on file Stress: Not on file Social Integration: Not on file Personal Safety: Not on file (06/26/2024) Housing Stability: Not on file BP 167/86 Pulse 97 Temp 97.2 ??F (36.2 ??C) (Tympanic) Resp 17 Ht 5' 4 (1.626 m) Wt 136 lb (61.7 kg) SpO2 100% BMI 23.34 kg/m?? Review of Systems Physical Exam Vitals and nursing note reviewed. Constitutional: General: She is not in acute distress. Appearance: She is well-developed. She is not diaphoretic. Comments: Age-appropriate, well-appearing, younger than stated age, no acute distress, son at the bedside. pleasant and cooperative. HENT: Head: Normocephalic and atraumatic. Right Ear: External ear normal. Left Ear: External ear normal. Nose: Nose normal. Mouth/Throat: Mouth: Mucous membranes are moist. Pharynx: No oropharyngeal exudate. Eyes: General: Right eye: No discharge. Left eye: No discharge. Conjunctiva/sclera: Conjunctivae normal. Pupils: Pupils are equal, round, and reactive to light. Neck: Thyroid: No thyromegaly. Vascular: No JVD. Trachea: No tracheal deviation. Cardiovascular: Rate and Rhythm: Normal rate and regular rhythm. Heart sounds: Normal heart sounds. No murmur heard. Pulmonary: Effort: Pulmonary effort is normal. No respiratory distress. Breath sounds: Normal breath sounds. No wheezing or rales. Chest: Chest wall: No tenderness. Abdominal: General: Bowel sounds are normal. There is no distension. Palpations: Abdomen is soft. There is no mass. Tenderness: There is no abdominal tenderness. There is no guarding or rebound. Musculoskeletal: General: No tenderness. Normal range of motion. Cervical back: Normal range of motion and neck supple. Lymphadenopathy: Cervical: No cervical adenopathy. Skin: General: Skin is warm and dry. Capillary Refill: Capillary refill takes less than 2 seconds. Coloration: Skin is not pale. Findings: No erythema or rash. Neurological: Mental Status: She is alert and oriented to person, place, and time. Cranial Nerves: No cranial nerve deficit. Motor: No abnormal muscle tone. Coordination: Coordination normal. Deep Tendon Reflexes: Reflexes are normal and symmetric. Psychiatric: Behavior: Behavior normal. Thought Content: Thought content normal. Critical Care Performed by: Sahil Coles DO Authorized by: Sahil Coles DO Critical care provider statement: Critical care time (minutes): 35 No results found for this or any previous visit (from the past 24 hours). Imaging Results None 1:39 PM RECEIVING LEAD I spoke with Dr. Ibarra to inform them of the admission to the hospital, I discussed the differential, current medical issues, and likely disposition of the patient. Emergency Department Progress. (Note: only significant re-evaluation times are documented, patientsin the emergency department typically have many more re- evaluations than reasonably document) 2:18 PM RECEIVING LEAD I have re-evaluated the patient at the bedside. she is comfortable with admission to the hospital for further testing and management. I have answered all questions for her and any family present. In reviewing the patient's chart, their primary care doctor is SAHIL TALLEY MD. CMP (Comprehensive Metabolic Panel) (Results Pending) Complete Blood Count (CBC) WITH Diff (Results Pending) Labs Reviewed CMP (COMPREHENSIVE METABOLIC PANEL) COMPLETE BLOOD COUNT (CBC) WITH DIFF Narrative: The following orders were created for panel order Complete Blood Count (CBC) WITH Diff. Procedure Abnormality Status --------- ------ CBC with Auto Differential[[id number]] Please view results for these tests on the individual orders. CBC WITH AUTO DIFFERENTIAL I have reviewed the available labs, imaging, and nursing notes. Admission Consideration: 2:17 PM RECEIVING LEAD-paged Dr. Bucrh I spoke with Dr. Burch to inform them of the admission to the hospital, I discussed the differential, current medical issues, and likely disposition of the patient. Medical Decision Making Esophageal food bolus, tried glucagon with no success, consult to GI, NPO. Clinical Impression 1. Food bolus obstruction of intestine (HCC) Disposition: Admit Disposition: Admit 1. Food bolus obstruction of intestine (HCC) No current facility-administered medications on file prior to encounter. Current Outpatient Medications on File Prior to Encounter Medication Sig Dispense Refill atorvastatin (LIPITOR) 10 MG Tablet Take 1 Tab by mouth daily. 90 Tab 1 Cholecalciferol (VITAMIN D PO) Take 1 Tab by mouth daily. furosemide (LASIX) 20 MG Tablet TAKE 1 TABLET BY MOUTH EVERY DAY 30 Tab 2 metoprolol tartrate (LOPRESSOR) 25 MG Tablet Take 1/2 tab po bid. Chg from Carvedilol 30 Tablet 3 Multiple Vitamin (CALCIUM COMPLEX PO) Take 1 Tab by mouth daily. omeprazole (PRILOSEC) 20 MG CAPSULE DELAYED RELEASE Take 20 mg by mouth every morning. quinapril (ACCUPRIL) 40 MG Tablet TAKE 1 TABLET BY MOUTH TWICE A DAY 180 Tablet 0 Sahil Coles D.O. Emergency/Tactical Medicine Attention patients/caregivers: Secondary to the medical cares act notes and test results are now immediately released to patients and caregivers. If you are the patient referenced in this documentation or a caregiver thereof and are reading this chart, please be aware that there is medical terminology, abbreviations, and methods of communication which are intended for medical professional interpretation only. If you have questions, please contact your primary care provider. If there are specific physician's or contact information referenced in this chart do not use it as it may be out of date. Certain laboratory values or radiologic studies may have findings that appear abnormal, these were reviewed by your physician and do not require further emergent or urgent medical attention. If you have further questions about any testing performed please contact your primary care provider for clarification or further discussion. Portions of this chart have been completed by voice recognition software and may contain errors not readily picked up by the user. This would in no way affect the patient's care and is med for speed and quality of history and medical decision making. IVING LEAD IVING LEAD documented in this encounter Miscellaneous Notes * Plan of Care - Tanja Ramsay RN - 07/02/2024 2:45 PM CST Problem: Adult Inpatient Plan of Care Goal: Plan of Care Review Outcome: Ongoing (see interventions/notes) Flowsheets (Taken 07/02/2024 1444) Plan of Care Reviewed With: patient Today's Goal: to go home Outcome Evaluation: ready for OR Does the patient need assistance with discharge and/or transitioning to the next level of care?: No, no needs anticipated Goal: Optimal Comfort and Wellbeing Outcome: Ongoing (see interventions/notes) Goal: Readiness for Transition of Care Outcome: Ongoing (see interventions/notes) IVING LEAD documented in this encounter Plan of Treatment Not on file documented as of this encounter Procedures Procedure Name Priority Date/Time Associated Diagnosis Comments [place] ESOPHAGOGASTRODUODENOSCOP Y TRANSORAL DIAGNOSTIC 07/02/2024 3:01 PM RECEIVING LEAD EGD - 48F THOMASON DILATION, NO FOOD BOLUS [place] EGD FLEXIBLE TRANSNASAL D X W/COLLJ SPEC BR/WA 07/02/2024 3:01 PM RECEIVING LEAD EGD - 48F THOMASON DILATION, NO FOOD BOLUS POCT GLUCOSE Routine 07/02/2024 2:53 PM RECEIVING LEAD GI LAB IMAGING - EGD Routine 07/02/2024 2:39 PM RECEIVING LEAD EXTRA TUBES STAT 07/02/2024 1:50 PM RECEIVING LEAD GOLD TOP TUBE STAT 07/02/2024 1:50 PM RECEIVING LEAD BLUE TOP TUBE STAT 07/02/2024 1:50 PM RECEIVING LEAD CBC WITH AUTO DIFFERENTIAL STAT 07/02 1:50 PM RECEIVING LEAD CMP (COMPREHENSIVE METABOLIC PANEL) STAT 07/02/2024 1:50 PM RECEIVING LEAD COMPLETE BLOOD COUNT (CBC) W ITH DIFF STAT 07/02/2024 1:50 PM RECEIVING LEAD CRITICAL CARE Routine 07/02/2024 1:35 PM RECEIVING LEAD documented in this encounter Results * (ABNORMAL) POCT Glucose (07/02/2024 2:53 PM RECEIVING LEAD) GLUCOSE,BEDSID E POCT 165(H) 70 - 99 mg/dL 07/02/2024 2:59 PM RECEIVING LEAD [facility] Comment:Patient RN Performed Blood 07/02/2024 2:53 PM RECEIVING LEAD 07/02/2024 2:59 PM RECEIVING LEAD us None Provider POINT OF CARE TESTING Final Resu lt [facility] [address] [place] [address] * GI LAB IMAGING - EGD (07/02/2024 2:39 PM RECEIVING LEAD) us Lawrence Ibarra MD IMG DIAGNOSTIC ORDERABLES Final Result * Gold Top Tube (07/02/2024 1:50 PM RECEIVING LEAD) Blood No Phlebotomy Charged / Unknown 07/02/2024 1:50 PM RECEIVING LEAD 07/02/2024 2:19 PM RECEIVING LEAD us Sahil Coles DO CHEMISTRY ORDERABLES Fi nal Result [facility] [place] [address] * Blue Top Tube (07/02/2024 1:50 PM RECEIVING LEAD) Blood No Phlebotomy Charged / Unknown 07/02/2024 1:50 PM RECEIVING LEAD 07/02/2024 2:19 PM RECEIVING LEAD Sahil Coles DO HEMATOLOGY ORDERABLES F inal Result Performing Organization Address City/[facility]/ZIP Co de Phone Number [facility] [address] [place] [address] * CBC with Auto Differential (07/02/2024 1:50 PM RECEIVING LEAD) WBC 7.96 4.00 - 12.00 10(3)/mcL 07/02/2024 2:22 PM RECEIVING LEAD [facility] RBC 4.72 3.80 - 5.30 10(6)/mcL 07/02/2024 2:22 PM RECEIVING LEAD [facility] HEMOGLOBIN (HGB) 14.1 12.0 - 15.8 g/dL 07/02/2024 2:22 PM RECEIVING LEAD [facility] HEMATOCRIT (HCT) 42.7 36.0 - 47.0 % 07/02/2024 2:22 PM RECEIVING LEAD [facility] MCV 90.5 82.0 - 96.0 fL 07/02/2024 2:22 PM [facility] MCH 29.9 26.0 - 34.0 pg 07/02/2024 2:22 PM [facility] MCHC 33.0 31.0 - 36.0 g/dL 07/02/2024 2:22 PM [facility] PLATELET COUNT 183 140 - 440 10(3)/[facility] 07/02/2024 2:22 PM [facility] RDW 13.2 11.8 - 15.5 % 07/02/2024 2:22 PM [facility] MPV 10.6 9.7 - 12.4 fL 07/02/2024 2:22 PM [facility] NEUTROPHILS 60.3 47.0 - 73.0 % 07/02/2024 2:22 PM [facility] LYMPHOCYTES 30.3 18.0 - 42.0 % 07/02/2024 2:22 PM [facility] MONOCYTES 7.9 4.0 - 12.0 % 07/02/2024 2:22 PM [facility] EOSINOPHILS 1.0 0.0 - 5.0 % 07/02/2024 2:22 PM [facility] BASOPHILS 0.5 0.0 - 1.0 % 07/02/2024 2:22 PM [facility] ABSOLUTE NEUTROPHILS 4.80 1.60 - 7.70 10(3)/mcL 07/02/2024 2:22 PM [facility] ABSOLUTE LYMPHOCYTES 2.41 1.30 - 3.20 10(3)/mcL 07/02/2024 2:22 PM [facility] ABSOLUTE MONOCYTES 0.63 0.20 - 1.00 10(3)/mcL 07/02/2024 2:22 PM [facility] ABSOLUTE EOSINOPHIL 0.08 0.00 - 0.40 10(3)/mcL 07/02/2024 2:22 PM [facility] ABSOLUTE BASOPHILS 0.04 0.00 - 0.10 10(3)/[facility] 07/02/2024 2:22 PM RECEIVING LEAD [facility] NRBC PER 100 WBC 0 07/02/19 2:22 PM RECEIVING LEAD [facility] Blood Venipuncture / Unknown 07/02/2024 1:50 PM RECEIVING LEAD 07/02/2024 2:18 PM RECEIVING LEAD us Sahil Coles DO HEMATOLOGY ORDERABLES F inal Result [facility] [address] [place] [address] * (ABNORMAL) CMP (Comprehensive Metabolic Panel) (07/02/2024 1:50 PM RECEIVING LEAD) SODIUM 142 136 - 145 mmol/L 07/02/2024 2:38 PM RECEIVING LEAD [facility] POTASSIUM 4.4 3.5 - 5.1 mmol/L 07/02/2024 2:38 PM [facility] CHLORIDE 108(H) 98 - 107 mmol/L 07/02/2024 2:38 PM [facility] CO2, VENOUS 24 22 - 30 mmol/L 07/02/2024 2:38 PM RECEIVING LEAD [facility] ANION GAP 14.4 <18.0 mmol/L 07/02/2024 2:38 PM [facility] GLUCOSE 109(H) 70 - 99 mg/dL 07/02/2024 2:38 PM [facility] BUN 44(H) 10 - 20 mg/dL 07/02/2024 2:38 PM [facility] CREATININE, BLOOD 1.30(H) 0.60 - 1.00 mg/dL 07/02/2024 2:38 PM [facility] BUN/CREATININE RATIO 34(H) 12 - 20 ratio 07/02/2024 2:38 PM [facility] TOTAL PROTEIN 9.0(H) 6.0 - 8.0 g/dL 07/02/2024 2:38 PM [facility] ALBUMIN 4.8 3.5 - 5.0 g/dL 07/02/2024 2:38 PM RECEIVING LEAD [facility] A/G RATIO 1.1 1.0 - 2.2 07/02/2024 2:38 PM RECEIVING LEAD [facility] CALCIUM 10.5 8.7 - 10.5 mg/dL 07/02/2024 2:38 PM RECEIVING LEAD [facility] T BILI 0.6 0.2 - 1.2 mg/dL 07/02/2024 2:38 PM RECEIVING LEAD [facility] SGOT (AST) 21 6 - 42 U/L 07/02/2024 2:38 PM RECEIVING LEAD [facility] SGPT (ALT) 17 6 - 55 U/L 07/02/2024 2:38 PM RECEIVING LEAD [facility] ALKALINE PHOSPHATASE 58 40 - 150 U/L 07/02/2024 2:38 PM RECEIVING LEAD [facility] GFR, ESTIMATED 40(L) >=60 07/02/2024 2:38 PM RECEIVING LEAD [facility] Comment: Creatinine Clearance is the preferred criteria for selecting drug dose adjustments in renally impaired patients. ??The GFR is provided as additional pertinent clinical information. GFR is reported in mL/min/1.73 sq m. Calculation based on the Chronic Kidney Disease Epidemiology Collaboration (CKD- EPI) equation refit without adjustment for race. GFR, EST. 47(L) >=60 025 2:38 PM RECEIVING LEAD [facility] GFR, EST. NONAFRICAN 39(L) >=60 07/02/2024 2:38 PM RECEIVING LEAD [facility] Blood Venipuncture / Unknown 07/02/2024 1:50 PM RECEIVING LEAD 07/02/2024 2:18 PM RECEIVING LEAD us Sahil Coles DO CHEMISTRY ORDERABLES Fi nal Result [facility] [address] [place] [address] * Critical Care (07/02/2024 1:35 PM RECEIVING LEAD) Narrative Sahil Coles, DO - 07/02/2024 1:35 PM RECEIVING LEAD Sahil Coles, DO ? 07/02/2024 ??2:18 PM Critical Care Performed by: Sahil Coles, DO Authorized by: Sahil Coles, DO ?? Critical care provider statement: ??Critical care time (minutes): ??35 us Sahil Coles DO PROCEDURE/MINOR SURGICA L ORDERABLES Final Result documented in this encounter Visit Diagnoses Not on filedocumented in this encounter Admitting Diagnoses Diagnosis Food bolus obstruction of intestine (HCC) documented in this encounter Administered Medications Inactive Administered Medications - up to 3 most recent administrations Medication Order MAR Action Action Date Dose Rate Site 0.9 % sodium chloride solution at 999 mL/hr, Intravenous, ONCE, 1 dose, On Mon07/02/24 at 1400 New Bag 07/02/2024 2:02 PM RECEIVING LEAD 1,000 mL 999 mL/hr Glucagon Emergency injection KIT 1 mg 1 mg, Intravenous, ONCE, 1 dose, On Mon07/02/24 at 1400 Given 07/02/2024 2:02 PM RECEIVING LEAD 1 mg lactated ringers infusion at 20 mL/hr, Intravenous, CONTINUOUS, Starting on Mon07/02/24 at 1500, Until Mon07/02/24 at 1805, INTRA-PROCEDURE(GI) New Bag 07/02/2024 2:53 PM RECEIVING LEAD 20 mL/hr ondansetron (ZOFRAN) injection 4 mg 4 mg, Intravenous, EVERY 6 HOURS PRN, 3 doses, Starting on Mon07/02/24 at 1406, Until Mon07/02/24 at 1805, Nausea - 1st line Given 07/02/2024 2:11 PM RECEIVING LEAD 4 mg documented in this encounter Active and Recently Administered Medications Times are shown in RECEIVING LEAD. Scheduled Medication Order 06/30/2024 07/01/2024 07/02/2024 0.9 % sodium chloride solution (COMPLETED) at 999 mL/hr, Intravenous, ONCE, 1 dose, On Mon07/02/24 at 1400 1402 (New Bag - Prov ider: Juan Licea RN)1500 (Stopped - Provider: Sima Sherwood RN) Glucagon Emergency injection KIT 1 mg (COMPLETED) 1 mg, Intravenous, ONCE, 1 dose, On Mon07/02/24 at 1400 1402 (Given - Provid er: Juan Licea RN) Continuous Medication Order 06/30/2024 07/01/2024 07/02/2024 lactated ringers infusion at 20 mL/hr, Intravenous, CONTINUOUS, Starting on Mon07/02/24 at 1500, Until Mon07/02/24 at 1805, INTRA-PROCEDURE(GI) 1453 (New Bag - Prov ider: Tanja Ramsay, ALECIA)1501 (Continued by Anesthesia - Provider: Maikol Pizano APRN, STOCK CHECKER)1527 (Stopped - Provider: Sima Sherwood RN)1600 (Stopped - Provider: Sima Sherwood RN) PRN Medication Order 06/30/2024 07/01/2024 07/02/2024 ondansetron (ZOFRAN) injection 4 mg 4 mg, Intravenous, EVERY 6 HOURS PRN, 3 doses, Starting on Mon07/02/24 at 1406, Until Mon07/02/24 at 1805, Nausea - 1st line 1411 (Given - Provid er: Juan Licea RN) documented in this encounter Additional Health Concerns Assessment Noted Time PHQ-9 Depression Total Score: 0 07/17/19 21 11:00 AM RECEIVING LEAD documented as of this encounter Care Teams Fire Extinguisher Repairer Relationship Specialty Start Date End Date Sahil Talley MD [address] [place] [address] PCP - General Family Medicine 08/03/22 documented as of this encounter
--- OUTSIDE RECORDS SUMMARY | 2024-07-03 13:41 | XMS_ITS | Encounter Summary ---
Author Organization [facility] Address [address] [place] [address] Phone Care Team Providers Care Pipe Setter Name Role Phone Brandon Leal MD Primary Care Provider [phone] Reason for Visit * Auth/Cert (Routine) Specialty Diagnoses / Procedures Referred By Contac t Referred To Contact Diagnoses Food bolus obstruction of intestine (HCC) Ifrah Burch MD [address] [place] [address] Phone: tel: fax: Referral ID Status Reason Start Date Expiration Date Visits Re quested Visits Authorized [id number] 1 1 Encounter Details Date Type Department Care Team (Late st Contact Info) Description 07/02/2024 3:01 PM SUSTAINABILITY PROJECT COORDINATOR [facility]est[facility] [address] [place] [address] Maikol Pizano APRN, RESISTANCE BRAZER [address] [place] [address] Anesthesia Record Procedure Summary Procedure Name Responsible Anesthesiologist Anesthesia Start Time Anesthesia Stop Time EGD - 48F THOMASON DILATION, NO FOOD BOLUS Maikol Pizano APRN, RESISTANCE BRAZER 07/02/24 1501 07/02/24 1513 Events Date Time Event Comment 07/02/2024 1458 1501 An Start 1501 An Start Data 1501 ANASSESSCMPLT 1501 Start Supplemental O2 1501 Anesthesia Ready 1511 Stop Supplemental O2 1511 Stop Data Collection 1511 Transort to Postop 1513 Handoff to RN I completed my SBAR handoff to the receiving nurse. Last vitals BP: 165/84 Temp: 36.2 ??C (97.2 ??F) Pulse: 97 Resp: 17 SpO2: 98 % 1513 An Stop Last vitals: BP : 165/84 Temp: 36.2 ??C (97.2 ??F) Pulse: 97 Resp: 17 SpO2: 98 % Meds Name Total propofol 10 mg/mL 50 mg lactated ringers infusion 0 mL * Agents No agents on file. * Blood No blood administrations on file. Lines, Drains, and Airways Type Details Placement Removal PIV-Single Lumen Placement Date: 07/02/24; Placement Time: 1349; Catheter Size: 20 G; Orientation: Left; Location: Antecubital; Site Prep: Alcohol; Local Anesth: None; Technique: Anatomical landmarks; Insertion Attempts: 3; Difficult Venous Access? Yes; Patient Tolerance: Tolerated well; Removal Date: 07/02/24; Removal Time: 1527 07/02/24 1349 by Joon Gallegos RN 07/02/24 1527 by Sima Sherwood RN documented in this encounter Social History Tobacco [...] on file documented as of this encounter OR Notes * Anesthesia Postprocedure Evaluation - Maikol Pizano APRN, RESISTANCE BRAZER - 07/02/2024 3:25 PM CST Patient: Valerie Fonseca Procedure Summary Date: 07/02/24 Room / Location: [facility] Anesthesia Start: 1501 Anesthesia Stop: 1513 Procedure: EGD - 48F THOMASON DILATION, NO FOOD BOLUS Diagnosis: (EGD - 48F THOMASON DILATION, NO FOOD BOLUS) Surgeons: Lawrence Bragg MD Responsible Provider: Maikol Pizano APRN, CRNA Anesthesia Type: MAC ASA Status: 2 Anesthesia Type: MAC Last vitals Vitals Value Taken Time BP 89/79 07/02/24 1515 Temp 36 ??C (96.8 ??F) 07/02/24 1515 Pulse 108 07/02/24 1515 Resp 21 07/02/24 1515 SpO2 100 % 07/02/24 1515 Pain score: 0 Pain management: adequate Patient location during evaluation: GI Lab Patient participation: Sufficiently recovered to participate Level of consciousness: sleepy but conscious Cardiovascular status: acceptable Respiratory status: acceptable Hydration status: acceptable Comments: Vital signs on nursing flowsheet Anesthetic complications: no Airway patency: patent Nausea and Vomiting: none AINABILITY PROJECT COORDINATOR * Anesthesia Preprocedure Evaluation - Maikol Pizano APRN, CRNA - 07/02/2024 2:57 PM CST Anesthesia Evaluation Procedure Information Date/Time: 07/02/24 1430 Procedure: EGD Location: [facility] Surgeons: Lawrence Bragg MD Patient summary reviewed and Nursing notes reviewed No history of anesthetic complications No family history of anesthesia reaction Allergies: No Known Allergies Patient allergies reviewed. Medications: Current Facility-Administered Medications: lactated ringers infusion, , Intravenous, Continuous, Lawrence Bragg MD, Last Rate: 20 mL/hr at 07/02/24 1453, New Bag at 07/02/24 1453 ondansetron (ZOFRAN) injection 4 mg, 4 mg, Intravenous, Q6H PRN, Brandon Coles DO, 4 mg at 07/02/24 1411 Medications Prior to Admission: atorvastatin (LIPITOR) 10 MG Tablet, Take 1 Tab by mouth daily., Disp: 90 Tab, Rfl: 1 Cholecalciferol (VITAMIN D PO), Take 1 Tab by mouth daily., Disp: , Rfl: Empagliflozin (JARDIANCE PO), Take by mouth., Disp: , Rfl: furosemide (LASIX) 20 MG Tablet, TAKE 1 TABLET BY MOUTH EVERY DAY (Patient not taking: Reported on 07/02/2024), Disp: 30 Tab, Rfl: 2 HYDROCHLOROTHIAZIDE PO, Take by mouth., Disp: , Rfl: LISINOPRIL PO, Take by mouth., Disp: , Rfl: metoprolol tartrate (LOPRESSOR) 25 MG Tablet, Take 1/2 tab po bid. Chg from Carvedilol (Patient nottaking: Reported on 07/02/2024), Disp: 30 Tablet, Rfl: 3 Multiple Vitamin (CALCIUM COMPLEX PO), Take 1 Tab by mouth daily., Disp: , Rfl: omeprazole (PRILOSEC) 20 MG CAPSULE DELAYED RELEASE, Take 20 mg by mouth every morning., Disp: , Rfl: quinapril (ACCUPRIL) 40 MG Tablet, TAKE 1 TABLET BY MOUTH TWICE A DAY (Patient not taking: Reportedon 07/02/2024), Disp: 180 Tablet, Rfl: 0 Patient medications reviewed. Airway Mallampati: II TM distance: <3 FB Neck ROM: full Dental - normal exam Pulmonary - negative ROS and normal exam breath sounds clear to auscultation Cardiovascular - normal exam Exercise tolerance: good (+) hypertension Rhythm: regular Rate: normal Neuro/Psych - negative ROS GI/Hepatic/Renal (+) GERD Endo/Other (+) type II DM Risks, benefits, alternatives discussed with:patient Anesthesia Plan ASA 2 MAC intravenous induction Anesthetic plan and risks discussed with Patient. Plan discussed with RESISTANCE BRAZER and surgeon. AINABILITY PROJECT COORDINATOR documented in this encounter Plan of Treatment Not on file documented as of this encounter Visit Diagnoses Not on filedocumented in this encounter Administered Medications Inactive Administered Medications - up to 3 most recent administrations Medication Order MAR Action Action Date Dose Rate Site propofol (DIPRIVAN) injection Intravenous, ONCE (in OR), Starting on Mon07/02/24 at 1506, Until Mon07/02/24 at 1513 Given 07/02/2024 3:06 PM SUSTAINABILITY PROJECT COORDINATOR 50 mg documented in this encounter Additional Health Concerns Assessment Noted Time PHQ-9 Depression Total Score: 0 07/17/19 21 11:00 AM SUSTAINABILITY PROJECT COORDINATOR documented as of this encounter Care Teams Pipe Setter Relationship Specialty Start Date End Date Brandon Leal MD [address] [place] [address] PCP - General Family Medicine 08/03/22 documented as of this encounter
--- OUTSIDE RECORDS SUMMARY | 2024-07-03 13:41 | XMS_ITS | Encounter Summary ---
Author Organization [facility] Address [address] [place] [address] Phone Care Team Providers Care Pediatric Psychiatrist Name Role Phone Raphael Burch MD Primary Care Provider Brandon Leal MD Primary Care Provider Reason for Visit * Reason Comments Medication Refill Encounter Details Date Type Department Care Team (Late st Contact Info) Description 05/07/2020 Refill [facility] - Internal Medicine - [place] [address] [place] [address] Raphael Burhc MD [address] [facility] [place] [address] Medication Refill Social History Tobacco Use Types Packs/Day Years Used Date Smoking Tobacco: Never Smokeless Tobacco: Never Alcohol Use Standard Drinks/Week Comments No 0 (1 standard drink = 0.6 oz pur e alcohol) Comments No Sex and Gender Information Value Date Recorded Sex Assigned at Not on file Legal Sex Female 11:52 PM CDT Gender Identity Not on file Sexual Orientation Not on file documented as of this encounter Miscellaneous Notes * Telephone Encounter - Trinidad Flores RN - 05/07/2020 8:51 AM CST Please review and sign. ISHER documented in this encounter Plan of Treatment Not on file documented as of this encounter Visit Diagnoses Not on filedocumented in this encounter Care Teams Pediatric Psychiatrist Relationship Specialty Start Date End Date Raphael Burch MD [address] [place] [address] PCP - General Internal Medicine 06/29/18 03/06/22 Brandon Leal MD [address] [facility] [place] [address] PCP - General Family Medicine 08/03/22 documented as of this encounter
--- OUTSIDE RECORDS SUMMARY | 2024-07-03 13:41 | XMS_ITS | Clinical Summary ---
Author Organization [facility] Address [address] [place] [address] Care Team Providers Care Toy Trains And Accessories Salesperson Name Role Phone Brandon Leal MD Primary Care Provider [phone] Farzana Christina PT Unavailable Unavailable Allergies No known active allergies Medications cholecalciferol, vitamin D3, (VITAMIN D3 ORAL) Take 1 tablet by mouth daily Active multivitamin capsule Take 1 capsule by mouth daily Active UNABLE TO FIND Med Name: Calmicid Active UNABLE TO FIND Med Name: Acuity [place] Active omeprazole (PriLOSEC) 20 mg capsule Take 1 capsule (20 mg total) by mouth daily 90 capsule 1 2 Active quinapriL (ACCUPRIL) 40 mg tablet Take 1 tablet (40 mg total) by mouth 2 (two) times a day 180 tablet 3 2 Active carvediloL (COREG) 6.25 mg tablet Take 1 tablet (6.25 mg total) by mouth 2 (two) times a day with meals 180 tablet 2 Active hydroCHLOROthiazide (HYDRODIURIL) 25 mg tablet Take 1 tablet (25 mg total) by mouth daily 30 tablet 5 2 Active NIFEdipine CC 60 mg 24 hr tablet TAKE 1 TABLET BY MOUTH 2 TIMES A DAY. 180 tablet 2 Active atorvastatin (LIPITOR) 10 mg tablet TAKE 1 TABLET BY MOUTH EVERY DAY 90 tablet 1 2 Active ondansetron ODT (ZOFRAN-ODT) 4 mg disintegrating tablet Take 2 tablets (8 mg total) by mouth every 8 (eight) hours as needed for nausea or vomiting Take 4 or 8 mg ( 1 or 2 tabs) q.8 hours PRN 40 tablet 3 Active Active Problems Problem Noted Date Diagnosed Date Bilateral leg edema 10/26/2020 Assessment & Plan (10/26/2020 9:06 AM CDT): Has pitting edema in both legs, as well as some sense of loss of sensation in both feet Will start furosemide 20 daily at this time, continue to monitor Dysthymia 10/26/2020 Assessment & Plan (06/15/2021 9:44 AM RAINBOW TROUT FARM MANAGER): Well controlled, patient reports her mood is generally good at this time; has high stress job which is in factor, encouraged patient to continue to engage with meaningful activities Assessment & Plan (12/29/2020 10:57 AM CDT): Mostly related to multiple stressors; especially daughter and granddaughter may be using illicit substances Discussed with patient attending in are none meetings to get support from peers Patient is not interested in further counseling at this time Patient given education materials about warm handoff program at [facility] for provide to daughter and granddaughter as they are ready Assessment & Plan (10/26/2020 9:08 AM CDT): Patient is mildly elevated PHQ score, as well as generalized anxiety; patient reports prolonged related to loss of 54 years approximately 3 years ago Continues to cry every day about 4:00 a.m. when she prepares dinner Patient does not want any medication at this time, however patient was introduced to counselor to talk through some of her emotions as well as determine if she would benefit from long-term counseling Localized osteoarthritis of knees, bilateral 05/2021 Assessment & Plan (06/15/2021 9:45 AM RAINBOW TROUT FARM MANAGER): Right worse than left, patient has some instability and MCL laxity; however generally benign findings Encouraged patient to continue with home exercise program, and remain active on feet Assessment & Plan (12/29/2020 10:58 AM CDT): Completed physical therapy, continues to perform home exercises Patient is motivated to improve gait order to continue with her work Assessment & Plan (09/14/2020 3:42 PM CDT): Not well controlled; has had multiple falls due to decreased strength in right leg; -will refer to PT for strengthening and 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 of assitance deveices Generalized anxiety disorder 09/14/2020 Assessment & Plan (08/25/2021 4:53 PM CDT): Stable, improving; patient unable to tolerate Lexapro due to side effects; patient reports in general her mood is improving she is now being more consistent with medications as well as general care Assessment & Plan (07/27/2021 9:13 PM RAINBOW TROUT FARM MANAGER): Not well controlled; patient has multiple stressors; will start lexapro 5 mg; refer to counseling Assessment & Plan (10/26/2020 9:07 AM CDT): Stable, improving control Patient reports some improvement in mood on propanolol 10 mg, decreased generalize stress Will continue propanolol 10 mg for anxiety as well as blood pressure control Assessment & Plan (09/14/2020 3:46 PM CDT): Has multiple stressors in life; still working; has high stress job -will try propranolol to help reduce stress and control bp Gastroesophageal reflux disease 10/19/2013 Overview (09/07/2016): ESOPHAGEAL REFLUX Assessment & Plan (06/15/2021 9:44 AM RAINBOW TROUT FARM MANAGER): Not well controlled, patient reports worsening symptoms of acid reflux, as well as some episodes of difficulty swallowing; history requiring Esophageal dilation Start omeprazole 20 mg daily, referral to GI for EGD Benign hypertension 10/19/2013 Overview (09/08/2016): BENIGN HYPERTENSION Assessment & Plan (10/08/2021 9:50 AM CDT): Not well controlled; blood pressure elevated today greater than prior Secondary measurements demonstrated no significant improvement in blood pressure Of note patient has elevated pulse pressure, may be consistent with arterial sclerosis and possible pseudo hypertension Given limited response to calcium channel patience and MRYON-inhibitor; will start beta-patience Continue nifedipine 60 mg daily, quinapril 40 mg b.i.d., carvedilol 6.25 mg b.i.d. Assessment & Plan (08/25/2021 4:52 PM CDT): Stable, not well controlled; blood pressure is still elevated today, though improved control in clinic as well as per patient home Will continue to monitor At this time patient like to continue current medications without adjustment Patient had taking medicines consistently the same time Continue nifedipine 60 mg daily, quinapril 40 mg b.i.d. Follow-up in approximately 6 weeks to evaluated patient is clear for travel Assessment & Plan (07/27/2021 9:13 PM RAINBOW TROUT FARM MANAGER): Not well controlled; patient has multiple stressors; including daughter with substance use disorder, and caring for grandchildren. Will add Nifedipine 60 mg daily Refer patient to counseling Continue quinapril 40 mg bid Discontinue propranolol as no benefit Assessment & Plan (06/15/2021 9:43 AM RAINBOW TROUT FARM MANAGER): Stable, well controlled; blood pressure is at target today Continue quinapril 80 mg, propranolol 10 mg b.i.d. Assessment & Plan (12/29/2020 10:57 AM CDT): Stable, improved control Patient reports she is feeling much better on current medications Will continue quinapril 80 mg daily, propranolol 10 mg b.i.d. and furosemide 20 mg daily for edema Assessment & Plan (10/26/2020 9:06 AM CDT): Stable, well controlled Today blood pressure is at target of 130/64 Patient reports that other time she has had elevated blood pressure, patient rarely uses ambulatory blood pressure measurements due to anxiety related to high blood pressure measurements Will continue propanolol 10 mg b.i.d. and quinapril 80 mg daily Assessment & Plan (09/14/2020 3:45 PM CDT): Stable, well controlled; will continue to monitor; patient reports some anxiety and has had elevated bp due to anxiety -will start low dose propranolol to help stabilize blood pressure and help with anxiety Multiple-type hyperlipidemia 10/19/2013 Overview (09/09/2016): MIXED HYPERLIPIDEMIA Assessment & Plan (10/08/2021 9:50 AM CDT): Stable, well controlled; continue atorvastatin 10 mg daily Assessment & Plan (06/15/2021 9:43 AM RAINBOW TROUT FARM MANAGER): Stable, well controlled; total and LDL cholesterol at target Continue atorvastatin 10 mg Assessment & Plan (12/29/2020 10:58 AM CDT): Stable, most recent lipid panel was normal Will continue atorvastatin 10 mg daily Immunizations Name Administration Dates Next Due Influenza, Trivalent, IM (MDV) 02/21/2019 Influenza, Unspecified 08/25/2021(Deferr ed: Patient Refused),06/15/2021(Deferred: Patient Refused),06/05/2020(Deferred: Patient Refused),06/05/2020(Deferred: Patient Refused),06/05/2020(Deferred: Patient Refused),06/05/2020(Deferred: Patient Refused),06/05/2019(Deferred: Patient Refused),06/05/2019(Deferred: Patient Refused) Moderna SARS-CoV-2 Monovalen t Vaccination (12+ YRS) 08/31/2020 Td, adsorbed 06/13/2006 Surgical History Surgery Date Site/Laterality Comments CHOLECYSTECTOMY 06/05/1994 - 06/04/1995 Cholecystectomy OTHER SURGICAL HISTORY 06/05/2019 - 06/04/2020 EDC Scope INCONTINENCE SURGERY 02/04/2020 - 03/04/2020 HYSTERECTOMY 02/04/2020 - 03/04/2020 EAR SURGERY Medical History Medical History Date Comments Hx Other Medical 01-GI Vertigo Vertigo Hx Other Medical Lumbar Disc Dis ease Gastroesophageal reflux disease GERD Hypertension Family History Medical History Relation Name Comments Coronary artery disease Brother Allen nary artery disease; Coronary artery disease Mother Allenjose luis rodriguezy artery disease; Depression Mother Depression; Heart disease Mother Hypertension Mother Hypertension; No Known Problems Sister Relation Name Status Comments Brother Father Other unknown Mother (Age 97) Sister (Age 75) Social History Tobacco Use Types Packs/Day Years Used Date Smoking Tobacco: Never Smokeless Tobacco: Never Tobacco Cessation:Counseling Given: Not Answered Alcohol Use Standard Drinks/Week Comments No 0 (1 standard drink = 0.6 oz pur e alcohol) AUDIT-C Answer Date Recorded Q1: How often do you have a drink containing alc ohol? Never 06/15/2021 Average Number of Drinks Not on file 022 Q3: How often do you have si x or more drinks on one occasion? Never 06/15/2021 PHQ-2 Answer Date Recorded PHQ-2 Total Score 2 10/08/2021 Comments No Sex and Gender Information Value Date Recorded Sex Assigned at Not on file Legal Sex Female 2:08 PM RAINBOW TROUT FARM MANAGER Gender Identity Not on file Sexual Orientation Not on file Obstetrics History Last Filed Vital Signs Vital Sign Reading Time Taken Comments Blood Pressure 132/64 03/23/2024 9:39 AM CDT Pulse 91 03/23/2024 9:39 AM CDT Temperature 36.9 ??C (98.4 ??F) 03/23/2024 9:39 AM CD T Respiratory Rate 17 03/23/2024 9:39 AM CDT Oxygen Saturation 98% 03/23/2024 9:39 AM CDT Inhaled Oxygen Concentration - - Weight 59.9 kg (132 lb) 03/23/2024 9:39 AM CDT Height 153.7 cm (5' 0.5 ) 03/23/2024 9:39 AM CDT Body Mass Index 25.36 03/23/2024 9:39 AM CDT Plan of Treatment Health Maintenance Due Date Last Done Comments Hepatitis B Screening 12/30/1953 Zoster Vaccine (1 of 2) 12/30/1985 Pneumococcal vaccine 65+ (1 of 1 - PCV) 12/30/2000 Well Visit 65+ 12/30/2000 DTaP/Tdap/Td Vaccine (1 - Tdap) 06/14/2006 7 Fall Risk Assessment 08/25/2022 08/25/2021, 07/26/2021, 06/15/2021, Additional history exists Depression Screening 10/08/2022 10/08/2021, 08/25/2021, 07/26/2021, Additional history exists Covid-19 Vaccine (2023-2 5 season) 2024 08/31/2020 Influenza Vaccine (#1) 2024 02/21/2019 Insurance AET MEDICARE MEDICARE SOLUTIONS AET MEDICARE AETNA MEDICARE Care Teams Toy Tra[employer] Accessories Salesperson Relationship Specialty Start Date End Date Barndon Leal MD PCP - General Family Practice 02/15/22 Farzana Christina PT Physical Therapist Physical Therapy 03/18/22
--- OUTSIDE RECORDS SUMMARY | 2024-07-03 13:41 | XMS_ITS | Continuity of Care Document ---
Author Organization [facility] Address [address] [place] [address] [place] [address] Phone Care Team Providers Care Painter Spray Name Role Phone Karthikeyan Meadows Unavailable Unavailable [...] Copied on Encounter Office/outpat ient Visit, Est [facility], [address] [place] [address] [address], [place], [place], [id number], tel:[phone] [facility] No Information 1-201 0 Doisy Edjulia. [address] [facility] , [address], [place], [address], [place]. tel:[phone] [facility], [address] [address], [place], [place], [id number], [place] tel:[phone] SEC [facility] Corporate Center No Information 2-201 0 Doisy Edjulia. [address], [address], [place], [address], [place]. tel:[phone] Office/outpat ient Visit, [facility], [address], [place], [place], [id number], [place] tel:[phone] [facility] No Information May-1 4-200 9 Dori Napier. [facility] , [address], [place], [place], [facility], . tel:[phone] Office/outpat ient Visit, [facility], [id number] [place] [address] [address], [place], [place], [id number], [place] tel:[phone] [facility] No Information Apr-2 5-200 9 Dori Napier. [address] [place] [address] , [address], [place], [place], [facility], . tel:[phone] Office/outpat ient Visit, [facility], [address] [place] [address] [address], [place], [place], [id number], [place] tel:[phone] [facility] No Information Apr-2 0-200 9 Dori Napier. [address] [place] [address] , [address], [place], [place], [facility], . tel:[phone] Office/outpat ient Visit, [facility], [address] [place] [address] [address], [place], [place], [id number], tel:[phone] [facility] No Information Nov-0 9-200 9 Krishnasamy Yevgeniy. [address] [place] [address]ate [address], [place], [place], [facility], . tel:[phone] Family History Family Member Type Diagnosis Age At Onset No Information Payers Payer name Insurance type Covered republican ID Authoriza tilee(s) [place] [id number] [facility] [id number] Social History Type Description Quantity Date Captured [...]
--- OUTSIDE RECORDS SUMMARY | 2024-07-03 13:41 | XMS_ITS | Encounter Summary ---
Author Organization [facility] Address [address] [place] [address] Phone Care Team Providers Care Certified Prosthetist Name Role Phone Brandon Leal MD Primary Care Provider [phone] Reason for Visit * Auth/Cert (Routine) Specialty Diagnoses / Procedures Referred By Conthari t Referred To Contact Diagnoses Food bolus obstruction of intestine (HCC) Ifrah Burch MD [address] [place] [address] Phone: tel: fax: Referral ID Status Reason Start Date Expiration Date Visits Re quested Visits Authorized [id number] 1 1 Encounter Details Date Type Department Care Team (Latest Contact Info) Description 07/02/2024 3:00 PM REHABILITATION AIDE Ancillary Procedure [facility] Gi Lab Main [address] [place] [id number] Lawrence Bragg MD [address] [address] Arrived Discharge Disposition: Discharged to home or Selfcare Social History Tobacco Use Types Packs/Day Years [...] on file documented as of this encounter Plan of Treatment Not on file documented as of this encounter Procedures Procedure Name Priority Date/Time Associated Diagnosis Comments GI LAB IMAGING - EGD Routine 07/02/2024 2:39 PM REHABILITATION AIDE documented in this encounter Results * GI LAB IMAGING - EGD (07/02/2024 2:39 PM REHABILITATION AIDE) us Lawrence Phong Bragg MD IMG DIAGNOSTIC ORDERABLES Final Result documented in this encounter Visit Diagnoses Not on filedocumented in this encounter Additional Health Concerns Assessment Noted Time PHQ-9 Depression Total Score: 0 07/17/19 21 11:00 AM REHABILITATION AIDE documented as of this encounter Care Teams Certified Prosthetist Relationship Specialty Start Date End Date Brandon Leal MD [address] [place] [id number] PCP - General Family Medicine 08/03/22 documented as of this encounter
--- OUTSIDE RECORDS SUMMARY | 2024-07-03 13:41 | XMS_ITS | Referral Summary ---
Author Organization [facility] Address [address] [place] [address] Care Team Providers Care Blending Machine Feeder Name Role Phone Brandon Leal MD Primary Care Provider [phone] Farzana Christina PT Unavailable Unavailable Allergies No [...] 10/26/2020 Assessment & Plan (06/15/2021 9:44 AM BRANCH ASSOCIATE): Well controlled, patient reports her mood is [...] education materials about warm handoff program at [facility] for provide to daughter and granddaughter [...] 05/2021 Assessment & Plan (06/15/2021 9:45 AM BRANCH ASSOCIATE): Right worse than left, patient has some [...] care Assessment & Plan (07/27/2021 9:13 PM BRANCH ASSOCIATE): Not well controlled; patient has multiple stressors; [...] REFLUX Assessment & Plan (06/15/2021 9:44 AM BRANCH ASSOCIATE): Not well controlled, patient reports worsening symptoms [...] limited response to calcium channel patience and MYRON-inhibitor; will start beta-patience Continue nifedipine 60 mg [...] travel Assessment & Plan (07/27/2021 9:13 PM BRANCH ASSOCIATE): Not well controlled; patient has multiple stressors; including daughter with substance use disorder, and caring for grandchildren. Will add Nifedipine 60 mg daily Refer patient to counseling Continue quinapril 40 mg bid Discontinue propranolol as no benefit Assessment & Plan (06/15/2021 9:43 AM BRANCH ASSOCIATE): Stable, well controlled; blood pressure is at [...] daily Assessment & Plan (06/15/2021 9:43 AM BRANCH ASSOCIATE): Stable, well controlled; total and LDL cholesterol [...] Vaccination (12+ YRS) 08/31/2020 Td, adsorbed 06/13/2006 Social History Tobacco Use Types Packs/Day Years [...] on file Legal Sex Female 2:08 PM BRANCH ASSOCIATE Gender Identity Not on file Sexual Orientation Not on file Last Filed Vital Signs Vital Sign Reading [...] 03/23/2024 9:39 AM CDT Plan of Treatment Not on file Insurance MEDICARE SOLUTIONS AET MEDICARE [facility] Address: [facility] [id number] [place] [address] Care Teams Blending Machine Feeder Relationship Specialty Start Date End Date Brandon Leal MD PCP - General Family Practice 02/15/22 Farzana Christina PT Physical Therapist Physical Therapy 03/18/22
--- OUTSIDE RECORDS SUMMARY | 2024-07-03 13:41 | XMS_ITS | Encounter Summary ---
Author Organization [facility] Care Team Providers Care Licensed Pharmacist Name Role Phone Brandon Leal MD Primary Care Provider [phone] Encounter Details Date Type Department Care Team (Latest Contact Info) Description 07/02/2024 Travel Social History Tobacco Use Types Packs/Day Years [...] Total Score: 0 07/17/19 21 11:00 AM COMPANY MANAGER documented as of this encounter Care Teams Licensed Pharmacist Relationship Specialty Start Date End Date Brandon Leal MD [address] [place] [address] PCP - General Family Medicine 08/03/22 documented as of this encounter
--- OUTSIDE RECORDS SUMMARY | 2024-07-03 13:41 | XMS_ITS | Encounter Summary ---
Author Organization [facility] Address [address] [place] [address] Phone Care Team Providers Care Conference Concierge Name Role Phone Sahil Talley MD Primary Care Provider Reason for Referral * Radiology Services (Routine) - Closed Specialty Diagnoses / Procedures Referred By Contac t Referred To Contact Radiology Procedures GI LAB IMAGING - EGD Lawrence Ibarra MD [address] [address] Phone: tel: fax: Referral ID Status Reason Start Date Expiration Date Visits Re quested Visits Authorized [id number] Closed 07/02/2024 1 1 ER ASSEMBLER Reason for Visit * Reason Comments Food Bolus * Auth/Cert (Routine) Specialty Diagnoses / Procedures Referred By Contac t Referred To Contact Diagnoses Food bolus obstruction of intestine (HCC) Ifrah Burch MD [address] [place] [address] Phone: tel: fax: Referral ID Status Reason Start Date Expiration Date Visits Re quested Visits Authorized [id number] 1 1 Encounter Details Date Type Department Care Team (Late st Contact Info) Description 07/02/2024 1:31 PM WELDER ASSEMBLER - 07/02/2024 4:04 PM WELDER ASSEMBLER Emergency [facility] GI Lab Preop/Pacu II [address] [place] [id number] Sahil Coles DO [address] [place] [address] Ifrah Burch MD [address] [place] [address] Food bolus obstruction of intestine (HCC) Discharge Disposition: Discharged to home or Selfcare [...] Sign Reading Time Taken Comments Blood Pressure 143/85 07/02/2024 3:45 PM WELDER ASSEMBLER Pulse 99 07/02/2024 3:45 PM WELDER ASSEMBLER Temperature 36 ??C (96.8 ??F) 07/02/2024 3:45 PM WELDER ASSEMBLER Respiratory Rate 12 07/02/2024 3:45 PM WELDER ASSEMBLER Oxygen Saturation 100% 07/02/2024 3:45 PM WELDER ASSEMBLER Inhaled Oxygen Concentration - - Weight 61.7 kg (136 lb) 07/02/2024 1:34 PM WELDER ASSEMBLER Height 162.6 cm (5' 4 ) 07/02/2024 1:34 PM WELDER ASSEMBLER Body Mass Index 23.34 07/02/2024 1:34 PM WELDER ASSEMBLER documented in this encounter Discharge Instructions * Discharge Instructions* Sima Sherwood, RN - 07/02/2024 3:19 PM WELDER ASSEMBLER YOU HAD AN EGD TODAY. DR. IBARRA FOUND: NO FOOD BOLUS ESOPHAGEAL DILATION DONE DO NOT DRIVE, WORK, OPERATE MACHINERY OR USE POWER TOOLS UNTIL DAY AFTER PROCEDURE. NO ALCOHOL BEVERAGES TODAY FOLLOWING DAY: RETURN TO FULL ACTIVITY, INCLUDING WORK, UNLESS INSTRUCTED OTHERWISE. Call doctor's office ([phone]) or go to Emergency room for: Difficulty Breathing, Headache Or Visual Disturbances Persistent Dizziness Or Light-Headedness Persistent Nausea and Vomiting Temperature greater then 100.0 Significant abdominal pain, chest pain, or bleeding. Here at [facility] we strive to provide excellent care to [...] envelope is provided. THANK YOU FOR CHOOSING [facility]. ER ASSEMBLER documented in this encounter Medications at Time [...] PM CSTAssociated Order(s): IP CONSULT TO GI [facility] ADMISSION HISTORY & PHYSICAL Chief Complaint: Retained [...] Thank you very much for allowing the [facility] Adult Hospitalist Service to participate in the care of this patient HPI: Valerie Fonseca is a 88 y.o. female who presented to [facility] with complaints of retained food bolus. She [...] results found for: PHARTERIAL , PO2ART , MKY5RDP , CO2ART , O2ART Lab Results Component Value Date TROPONINI <0.300 08/31/2020 No results found for: AMYL , AMYLASE No results found for: LIPASE No results found for: CHOLESTEROL , TRIGLYCRIDES , HDLCHOLESTE , LDL By: Lawrence Ibarra MD, 07/02/2024, 2:57 PM WELDER ASSEMBLER Primary Care Physician: SAHIL TALLEY MD ER ASSEMBLER documented in this encounter OR Notes * [...] be normal. I did pass a 48 [place] Thomason dilator and re-evaluated with the endoscope. [...] per patient preferences Lawrence Ibarra MD Gastroenterology ER ASSEMBLER documented in this encounter ED Notes * Nivia De Jesus RN - 07/02/2024 2:31 PM CST Surgery personnel at bedside explaining procedure to patient. ER ASSEMBLER * Juan Licea RN - 07/02/2024 2:02 PM CST Pt medicated per provider orders. Pt educated on intended effects and side effects of medication and verbalized understanding, able to provide teach back of education. ER ASSEMBLER * Joon Gallegos RN - 07/02/2024 1:35 [...] this time. States a hx of stricture. ER ASSEMBLER * Sahil Coles DO - 07/02/2024 1:35 [...] EGD KASEY TEST, GASTRIC POLYP,GE JUNCTION BIOPSIES,54 NIGERIEN THOMASON DILATION, GASTRITIS, ESOPHAGITIS, MILD ESOPHAGEAL STRICTURE, SMALL HIATAL HERNIA, MILD DYSMOTILITY; Surgeon: Shima Fontana DO; Location: [facility] GI LAB; Service: Gastroenterology UPPER GASTROINTESTINAL ENDOSCOPY N/A 01/20/2020 Procedure: EGD, GASTRIC POLYP, KASEY TEST, ESOPHAGEAL DYSMOTILITY; Surgeon: Joseph Fontana DO; Location: [facility] GI LAB; Service: Gastroenterology Social History [...] 24 hours). Imaging Results None 1:39 PM WELDER ASSEMBLER I spoke with Dr. Ibarra to inform them of the admission to the hospital, I discussed the differential, current medical issues, and likely disposition of the patient. Emergency Department Progress. (Note: only significant re-evaluation times are documented, patientsin the emergency department typically have many more re- evaluations than reasonably document) 2:18 PM WELDER ASSEMBLER I have re-evaluated the patient at the [...] Abnormality Status --------- ------ CBC with Auto Differential[[id number]] Please view results for these tests on the individual orders. CBC WITH AUTO DIFFERENTIAL I have reviewed the available labs, imaging, and nursing notes. Admission Consideration: 2:17 PM WELDER ASSEMBLER-paged Dr. Burch I spoke with Dr. Burch to inform [...] A DAY 180 Tablet 0 Sahil Coles D.ODeny Emergency/Tactical Medicine Attention patients/caregivers: Secondary to the [employer] medical cares act notes and test results [...] quality of history and medical decision making. ER ASSEMBLER ER ASSEMBLER documented in this encounter Miscellaneous Notes * [...] Transition of Care Outcome: Ongoing (see interventions/notes) ER ASSEMBLER documented in this encounter Plan of Treatment Not on file documented as of this encounter Procedures Procedure Name Priority Date/Time Associated Diagnosis Comments CT ESOPHAGOGASTRODUODENOSCOP Y TRANSORAL DIAGNOSTIC 07/02/2024 3:01 PM WELDER ASSEMBLER EGD - 48F THOMASON DILATION, NO FOOD BOLUS CT EGD FLEXIBLE TRANSNASAL D X W/COLLJ SPEC BR/WA 07/02/2024 3:01 PM WELDER ASSEMBLER EGD - 48F THOMASON DILATION, NO FOOD BOLUS POCT GLUCOSE Routine 07/02/2024 2:53 PM WELDER ASSEMBLER GI LAB IMAGING - EGD Routine 07/02/2024 2:39 PM WELDER ASSEMBLER EXTRA TUBES STAT 07/02/2024 1:50 PM WELDER ASSEMBLER GOLD TOP TUBE STAT 07/02/2024 1:50 PM WELDER ASSEMBLER BLUE TOP TUBE STAT 07/02/2024 1:50 PM WELDER ASSEMBLER CBC WITH AUTO DIFFERENTIAL STAT 07/02 1:50 PM WELDER ASSEMBLER CMP (COMPREHENSIVE METABOLIC PANEL) STAT 07/02/2024 1:50 PM WELDER ASSEMBLER COMPLETE BLOOD COUNT (CBC) W ITH DIFF STAT 07/02/2024 1:50 PM WELDER ASSEMBLER CRITICAL CARE Routine 07/02/2024 1:35 PM WELDER ASSEMBLER documented in this encounter Results * (ABNORMAL) POCT Glucose (07/02/2024 2:53 PM WELDER ASSEMBLER) [facility] Signature GLUCOSE,BEDSID E POCT 165(H) 70 - 99 mg/dL 07/02/2024 2:59 PM WELDER ASSEMBLER [facility] Comment:Patient RN Performed Blood 07/02/2024 2:53 PM WELDER ASSEMBLER 07/02/2024 2:59 PM WELDER ASSEMBLER us None Provider POINT OF CARE TESTING Final Resu lt Performing Organization Address City/[facility]/ZIP Co de Phone Number [facility] [address] [place] [address] * GI LAB IMAGING - EGD (07/02/2024 2:39 PM WELDER ASSEMBLER) us Lawrence Ibarra MD IMG DIAGNOSTIC ORDERABLES Final Result * Gold Top Tube (07/02/2024 1:50 PM WELDER ASSEMBLER) Blood No Phlebotomy Charged / Unknown 07/02/2024 1:50 PM WELDER ASSEMBLER 07/02/2024 2:19 PM WELDER ASSEMBLER us Sahil Coles DO CHEMISTRY ORDERABLES Fi nal Result Performing Organization Address City/[facility]/ZIP Co de Phone Number [facility] [address] [place] [address] * Blue Top Tube (07/02/2024 1:50 PM WELDER ASSEMBLER) Blood No Phlebotomy Charged / Unknown 07/02/2024 1:50 PM WELDER ASSEMBLER 07/02/2024 2:19 PM WELDER ASSEMBLER us Sahil Coles DO HEMATOLOGY ORDERABLES F inal Result Performing Organization Address City/[facility]/ZIP Co de Phone Number [facility] [address] [place] [address] * CBC with Auto Differential (07/02/2024 1:50 PM WELDER ASSEMBLER) WBC 7.96 4.00 - 12.00 10(3)/mcL 07/02/2024 2:22 PM WELDER ASSEMBLER [facility] RBC 4.72 3.80 - 5.30 10(6)/mcL 07/02/2024 2:22 PM [facility] HEMOGLOBIN (HGB) 14.1 12.0 - 15.8 g/dL 07/02/2024 2:22 PM [facility] HEMATOCRIT (HCT) 42.7 36.0 - 47.0 % 07/02/2024 2:22 PM [facility] MCV 90.5 82.0 - 96.0 fL 07/02/2024 2:22 PM [facility] MCH 29.9 26.0 - 34.0 pg 07/02/2024 2:22 PM [facility] MCHC 33.0 31.0 - 36.0 g/dL 07/02/2024 2:22 PM [facility] PLATELET COUNT 183 140 - 440 10(3)/mcL 07/02/2024 2:22 PM [facility] RDW 13.2 11.8 - 15.5 % 07/02/2024 2:22 PM [facility] MPV 10.6 9.7 - 12.4 fL 07/02/2024 2:22 PM [facility] NEUTROPHILS 60.3 47.0 - 73.0 % 07/02/2024 2:22 PM [facility] LYMPHOCYTES 30.3 18.0 - 42.0 % 07/02/2024 2:22 PM [facility] MONOCYTES 7.9 4.0 - 12.0 % 07/02/2024 2:22 PM [facility] EOSINOPHILS 1.0 0.0 - 5.0 % 07/02/2024 2:22 PM [facility] BASOPHILS 0.5 0.0 - 1.0 % 07/02/2024 2:22 PM [facility] ABSOLUTE NEUTROPHILS 4.80 1.60 - 7.70 10(3)/mcL 07/02/2024 2:22 PM [facility] ABSOLUTE LYMPHOCYTES 2.41 1.30 - 3.20 10(3)/mcL 07/02/2024 2:22 PM [facility] ABSOLUTE MONOCYTES 0.63 0.20 - 1.00 10(3)/mcL 07/02/2024 2:22 PM WELDER ASSEMBLER [facility] ABSOLUTE EOSINOPHIL 0.08 0.00 - 0.40 10(3)/mcL 07/02/2024 2:22 PM WELDER ASSEMBLER [facility] ABSOLUTE BASOPHILS 0.04 0.00 - 0.10 10(3)/mcL 07/02/2024 2:22 PM WELDER ASSEMBLER [facility] NRBC PER 100 WBC 0 07/02/19 2:22 PM WELDER ASSEMBLER [facility] Blood Venipuncture / Unknown 07/02/2024 1:50 PM WELDER ASSEMBLER 07/02/2024 2:18 PM WELDER ASSEMBLER us Sahil Coles DO HEMATOLOGY ORDERABLES F inal Result [facility] [address] [place] [address] * (ABNORMAL) CMP (Comprehensive Metabolic Panel) (07/02/2024 1:50 PM WELDER ASSEMBLER) SODIUM 142 136 - 145 mmol/L 07/02/2024 2:38 PM [facility] POTASSIUM 4.4 3.5 - 5.1 mmol/L 07/02/2024 2:38 PM [facility] CHLORIDE 108(H) 98 - 107 mmol/L 07/02/2024 2:38 PM [facility] CO2, VENOUS 24 22 - 30 mmol/L 07/02/2024 2:38 PM WELDER ASSEMBLER [facility] ANION GAP 14.4 <18.0 mmol/L 07/02/2024 2:38 PM [facility] GLUCOSE 109(H) 70 - 99 mg/dL 07/02/2024 2:38 PM [facility] BUN 44(H) 10 - 20 mg/dL 07/02/2024 2:38 PM [facility] CREATININE, BLOOD 1.30(H) 0.60 - 1.00 mg/dL 07/02/2024 2:38 PM [facility] BUN/CREATININE RATIO 34(H) 12 - 20 ratio 07/02/2024 2:38 PM [facility] TOTAL PROTEIN 9.0(H) 6.0 - 8.0 g/dL 07/02/2024 2:38 PM [facility] ALBUMIN 4.8 3.5 - 5.0 g/dL 07/02/2024 2:38 PM [facility] A/G RATIO 1.1 1.0 - 2.2 07/02/2024 2:38 PM [facility] CALCIUM 10.5 8.7 - 10.5 mg/dL 07/02/2024 2:38 PM [facility] T BILI 0.6 0.2 - 1.2 mg/dL 07/02/2024 2:38 PM [facility] SGOT (AST) 21 6 - 42 U/L 07/02/2024 2:38 PM [facility] SGPT (ALT) 17 6 - 55 U/L 07/02/2024 2:38 PM [facility] ALKALINE PHOSPHATASE 58 40 - 150 U/L 07/02/2024 2:38 PM [facility] GFR, ESTIMATED 40(L) >=60 07/02/2024 2:38 PM [facility] Comment: Creatinine Clearance is the preferred criteria for selecting drug dose adjustments in renally impaired patients. ??The GFR is provided as additional pertinent clinical information. GFR is reported in mL/min/1.73 sq m. Calculation based on the Chronic Kidney Disease Epidemiology Collaboration (CKD- EPI) equation refit without adjustment for race. GFR, EST. 47(L) >=60 025 2:38 PM [facility] GFR, EST. NONAFRICAN 39(L) >=60 07/02/2024 2:38 PM [facility] Blood Venipuncture / Unknown 07/02/2024 1:50 PM WELDER ASSEMBLER 07/02/2024 2:18 PM WELDER ASSEMBLER us Sahil Coles DO CHEMISTRY ORDERABLES Fi nal Result [facility] [address] [place] [address] * Critical Care (07/02/2024 1:35 PM WELDER ASSEMBLER) Narrative Sahil Coles, - 07/02/2024 1:35 PM WELDER ASSEMBLER Sahil Coles, DO ? 07/02/2024 ??2:18 PM Critical Care Performed by: Sahil Coles DO Authorized by: Sahil Coles, ?? Critical care provider statement: ??Critical care time (minutes): ??35 us Sahil Coles DO PROCEDURE/MINOR SURGICA L ORDERABLES Final Result documented in this encounter Visit Diagnoses Diagnosis Food bolus obstruction of intestine (HCC)- Primary Food bolus obstruction of intestine (HCC) Esophageal dysphagia Dysphagia, pharyngoesophageal phase Esophageal dysphagia Dysphagia, pharyngoesophageal phase documented in this encounter Admitting Diagnoses Diagnosis Food bolus obstruction of intestine (HCC) documented in this encounter Administered Medications Inactive Administered Medications - up to 3 most recent administrations Medication Order MAR Action Action Date Dose Rate Site 0.9 % sodium chloride solution at 999 mL/hr, Intravenous, ONCE, 1 dose, On Mon07/02/24 at 1400 New Bag 07/02/2024 2:02 PM WELDER ASSEMBLER 1,000 mL 999 mL/hr Glucagon Emergency injection KIT 1 mg 1 mg, Intravenous, ONCE, 1 dose, On Mon07/02/24 at 1400 Given 07/02/2024 2:02 PM WELDER ASSEMBLER 1 mg lactated ringers infusion at 20 mL/hr, Intravenous, CONTINUOUS, Starting on Mon07/02/24 at 1500, Until Mon07/02/24 at 1805, INTRA-PROCEDURE(GI) New Bag 07/02/2024 2:53 PM WELDER ASSEMBLER 20 mL/hr ondansetron (ZOFRAN) injection 4 mg 4 mg, Intravenous, EVERY 6 HOURS PRN, 3 doses, Starting on Mon07/02/24 at 1406, Until Mon07/02/24 at 1805, Nausea - 1st line Given 07/02/2024 2:11 PM WELDER ASSEMBLER 4 mg documented in this encounter Active and Recently Administered Medications Times are shown in WELDER ASSEMBLER. Scheduled Medication Order 06/30/2024 07/01/2024 07/02/2024 0.9 % sodium chloride solution (COMPLETED) at 999 mL/hr, Intravenous, ONCE, 1 dose, On Mon07/02/24 at 1400 1402 (New Bag - Prov ider: Juan Licea RN)1500 (Stopped - Provider: Sima Sherwood, ALECIA) Glucagon Emergency injection KIT 1 mg (COMPLETED) 1 mg, Intravenous, ONCE, 1 dose, On Mon07/02/24 at 1400 1402 (Given - Provid er: Juan Licea RN) Continuous Medication Order 06/30/2024 07/01/2024 07/02/2024 lactated ringers infusion at 20 mL/hr, Intravenous, CONTINUOUS, Starting on Mon07/02/24 at 1500, Until Mon07/02/24 at 1805, INTRA-PROCEDURE(GI) 1453 (New Bag - Prov ider: Tanja Ramsay RN)1501 (Continued by Anesthesia - Provider: Maikol Pizano APRN, FISH HATCHERY SPECIALIST)1527 (Stopped - Provider: Sima Sherwood, ALECIA)1600 (Stopped - Provider: Sima Sherwood, ALECIA) PRN Medication Order 06/30/2024 07/01/2024 07/02/2024 ondansetron (ZOFRAN) injection 4 mg 4 mg, Intravenous, EVERY 6 HOURS PRN, 3 doses, Starting on Mon07/02/24 at 1406, Until Mon07/02/24 at 1805, Nausea - 1st line 1411 (Given - Provid er: Juan Licea RN) documented in this encounter Additional Health Concerns Assessment Noted Time PHQ-9 Depression Total Score: 0 07/17/19 21 11:00 AM WELDER ASSEMBLER documented as of this encounter Care Teams Conference Concierge Relationship Specialty Start Date End Date Sahil Talley MD [address] [place] [address] PCP - General Family Medicine 08/03/22 documented as of this encounter
--- OUTSIDE RECORDS SUMMARY | 2024-07-03 13:41 | XMS_ITS | Encounter Summary ---
Author Organization [facility] Address [address] [place] [address] Phone Care Team Providers Care Cafeteria Table Attendant Name Role Phone Raphael Burch MD Primary Care Provider [phone] Brandon Leal MD Primary Care Provider Reason for Visit * Reason Comments Medication Refill Encounter Details Date Type Department Care Team (Late st Contact Info) Description 10/14/2020 Refill [facility] - Internal Medicine - [place] [address] [place] [address] Raphael Burch MD [address] [facility] [place] [place] [address] Medication Refill Social History Tobacco [...] on file Sexual Orientation Not on file COVID-19 Exposure Response Date Recorded In the last month, have you been in contact with someone who was confirmed or suspected to have Coronavirus / COVID-19? No / Unsure 09/29/2020 3:59 PM CDT documented as of this encounter Miscellaneous Notes * Telephone Encounter - Trinidad Flores RN - 10/14/2020 7:43 AM CDT Please review and sign. documented in this encounter Plan of Treatment Not on file documented as of this encounter Visit Diagnoses Not on filedocumented in this encounter Additional Health Concerns Assessment Noted Time PHQ-9 Depression Total Score: 0 07/17/19 21 11:00 AM SUBSTANCE ABUSE SPECIALIST documented as of this encounter Care Teams Cafeteria Table Attendant Relationship Specialty Start Date End Date Raphael Burch MD [address] [place] [address] [place] [address] PCP - General Internal Medicine 06/29/18 03/06/22 Brandon Leal MD [address] [place] [address] PCP - General Family Medicine 08/03/22 documented as of this encounter
--- OUTSIDE RECORDS SUMMARY | 2024-07-03 13:42 | XMS_ITS | Clinical Summary ---
Author Organization [facility] Address [address] [place] [address] Care Team Providers Care Yarn Texture Machine Operator Name Role Phone Brandon Leal MD Primary Care Provider [phone] Allergies No known active allergies Medications Multiple Vitamin (CALCIUM COMPLEX PO) Take 1 Tab by mouth daily. Active Cholecalciferol (VITAMIN D PO) Take 1 Tab by mouth daily. Active omeprazole (PRILOSEC) 20 MG CAPSULE DELAYED RELEASE Take 20 mg by mouth every morning. Active atorvastatin (LIPITOR) 10 MG Tablet Take 1 Tab by mouth daily. 90 Tab 1 0 Active furosemide (LASIX) 20 MG Tablet TAKE 1 TABLET BY MOUTH EVERY DAY 30 Tab 2 0 Active Additional Information Patient not taking.Reported on 07/02/2024 metoprolol tartrate (LOPRESSOR) 25 MG Tablet Take 1/2 tab po bid. Chg from Carvedilol 30 Tablet 3 1 Active Additional Information Patient not taking.Reported on 07/02/2024 quinapril (ACCUPRIL) 40 MG Tablet TAKE 1 TABLET BY MOUTH TWICE A DAY 180 Tablet 1 Active Additional Information Patient not taking.Reported on 07/02/2024 Empagliflozin (JARDIANCE PO) Take by mouth. Active LISINOPRIL PO Take by mouth. A ctive HYDROCHLOROTHIA ZIDE PO Take by mouth. Activ e Active Problems Problem Noted Date Diagnosed Date Food bolus obstruction of intestine 07/02/2024 Esophageal dysphagia 07/02/2024 Bilateral lower extremity edema 04/16/2020 Overview (04/16/2020): Furosemide 20 mg daily started. GERD without esophagitis 04/16/2020 Overview (04/16/2020): Continue omeprazole. Other chest pain 10/30/2018 Essential hypertension, benign 10/30/2018 Mixed hyperlipidemia 10/30/2018 Encounters Date Type Department Care Team Description 07/02/2024 3:01 PM BRAIDING MACHINE OPERATOR [facility]est[facility] [address] [place] [address] Maikol Pizano, SERVICE OFFICER, PATROL LADY 07/02/2024 3:00 PM BRAIDING MACHINE OPERATOR Ancillary Procedure [facility] Main [address] [place] [address] Lawrence Bragg MD Arrived Discharge Disposition: Discharged to home or Selfcare 07/02/2024 2:30 PM BRAIDING MACHINE OPERATOR - 07/02/2024 3:00 PM BRAIDING MACHINE OPERATOR [facility] [address] [place] [address] Lawrence Bragg MD EGD - 48F THOMASON DILATION, NO FOOD BOLUS 07/02/2024 1:31 PM BRAIDING MACHINE OPERATOR - 07/02/2024 4:04 PM BRAIDING MACHINE OPERATOR Emergency [facility] Preop/Pacu II [address] [place] [address] Brandon Coles DO Patel, Satyen V, MD Food bolus obstruction of intestine (HCC) Discharge Disposition: Discharged to home or Selfcare 07/02/2024 Travel from Last 3 Months Immunizations Immunization Administration Dates Next Due Covid-19, Mrna, Lnp-s, PF, 1 00 mcg/0.5 mL Dose (Moderna) 08/31/2020 Influenza Vaccine greater than 3 yrs 02/21/2019 Family History Medical History Relation Name Comments No Known Problems Father unknown Heart Attack Mother Hypertension Mother Cancer Other M cousin breast Relation Name Status Comments Father Mother Other M cousin Social History Tobacco Use Types Packs/Day Years [...] Comments Blood Pressure 143/85 07/02/2024 3:45 PM BRAIDING MACHINE OPERATOR Pulse 99 07/02/2024 3:45 PM BRAIDING MACHINE OPERATOR Temperature 36 ??C (96.8 ??F) 07/02/2024 3:45 PM BRAIDING MACHINE OPERATOR Respiratory Rate 12 07/02/2024 3:45 PM BRAIDING MACHINE OPERATOR Oxygen Saturation 100% 07/02/2024 3:45 PM BRAIDING MACHINE OPERATOR Inhaled Oxygen Concentration - - Weight 61.7 kg (136 lb) 07/02/2024 1:34 PM BRAIDING MACHINE OPERATOR Height 162.6 cm (5' 4 ) 07/02/2024 1:34 PM BRAIDING MACHINE OPERATOR Body Mass Index 23.34 07/02/2024 1:34 PM BRAIDING MACHINE OPERATOR Plan of Treatment Health Maintenance Due Date Last Done Comments DEXA Bone Density 1935 Hepatitis C Virus (HCV) Screening 1935 TdaP Immunization 1935 Pneumococcal Immunization (50+ years) (1 of 1 - PCV) 12/30/1985 Respiratory Syncytial Virus (RSV) Immunization (Adult) (1 - 1-dose 75+ series) 12/30/2010 Influenza Immunization (#1) 2024 12/0 09/2022, 06/15/2022, 02/21/2019 SARS-COV-2 Immunization (2 - 2023- season) 2024 08/31/2020 DTaP/Tdap/Td Immunization Discontinued 2023, 06/13/2006 Zoster Immunization Completed 05/09/2024, 03/22/2023 Hepatitis B Immunization Aged Out No longer eligible based on patient's age to complete this topic Meningococcal Immunization (ACWY) Aged Out No longer eligible based on patient's age to complete this topic Rotavirus Immunization Aged Out No lo nger eligible based on patient's age to complete this topic Procedures Procedure Name Priority Date/Time Associated Diagnosis Comments DC ESOPHAGOGASTRODUODENOSCOP Y TRANSORAL DIAGNOSTIC 07/02/2024 3:01 PM BRAIDING MACHINE OPERATOR EGD - 48F THOMASON DILATION, NO FOOD BOLUS DC EGD FLEXIBLE TRANSNASAL D X W/COLLJ SPEC BR/WA 07/02/2024 3:01 PM BRAIDING MACHINE OPERATOR EGD - 48F THOMASON DILATION, NO FOOD BOLUS POCT GLUCOSE Routine 07/02/2024 2:53 PM BRAIDING MACHINE OPERATOR GI LAB IMAGING - EGD Routine 07/02/2024 2:39 PM BRAIDING MACHINE OPERATOR GOLD TOP TUBE STAT 07/02/2024 1:50 PM BRAIDING MACHINE OPERATOR BLUE TOP TUBE STAT 07/02/2024 1:50 PM BRAIDING MACHINE OPERATOR CBC WITH AUTO DIFFERENTIAL STAT 07/02 1:50 PM BRAIDING MACHINE OPERATOR EXTRA TUBES STAT 07/02/2024 1:50 PM BRAIDING MACHINE OPERATOR COMPLETE BLOOD COUNT (CBC) W ITH DIFF STAT 07/02/2024 1:50 PM BRAIDING MACHINE OPERATOR CMP (COMPREHENSIVE METABOLIC PANEL) STAT 07/02/2024 1:50 PM BRAIDING MACHINE OPERATOR CRITICAL CARE Routine 07/02/2024 1:35 PM BRAIDING MACHINE OPERATOR from Last 3 Months Results * (ABNORMAL) POCT Glucose (07/02/2024 2:53 PM BRAIDING MACHINE OPERATOR) GLUCOSE,BEDSID E POCT 165(H) 70 - 99 mg/dL 07/02/2024 2:59 PM BRAIDING MACHINE OPERATOR [facility] Comment:Patient RN Performed Blood 07/02/2024 2:53 PM BRAIDING MACHINE OPERATOR 07/02/2024 2:59 PM BRAIDING MACHINE OPERATOR us None Provider POINT OF CARE TESTING Final Resu lt [facility] [address] [place] [address] * GI LAB IMAGING - EGD (07/02/2024 2:39 PM BRAIDING MACHINE OPERATOR) us Lawrence Bragg MD IMG DIAGNOSTIC ORDERABLES Final Result * Gold Top Tube (07/02/2024 1:50 PM BRAIDING MACHINE OPERATOR) Blood No Phlebotomy Charged / Unknown 07/02/2024 1:50 PM BRAIDING MACHINE OPERATOR 07/02/2024 2:19 PM BRAIDING MACHINE OPERATOR Brandon Coles DO CHEMISTRY ORDERABLES Fi nal Result Performing Organization Address [facility]/ZIP Co de Phone Number [facility] [place] [address] * Blue Top Tube (07/02/2024 1:50 PM BRAIDING MACHINE OPERATOR) Blood No Phlebotomy Charged / Unknown 07/02/2024 1:50 PM BRAIDING MACHINE OPERATOR 07/02/2024 2:19 PM BRAIDING MACHINE OPERATOR Brandon Coles DO HEMATOLOGY ORDERABLES F inal Result Performing Organization Address [facility] Co de Phone Number [facility] [address] [place] [address] * CBC with Auto Differential (07/02/2024 1:50 PM BRAIDING MACHINE OPERATOR) WBC 7.96 4.00 - 12.00 10(3)/mcL 07/02/2024 2:22 PM BRAIDING MACHINE OPERATOR [facility] RBC 4.72 3.80 - 5.30 10(6)/mcL 07/02/2024 2:22 PM BRAIDING MACHINE OPERATOR [facility] HEMOGLOBIN (HGB) 14.1 12.0 - 15.8 g/dL 07/02/2024 2:22 PM BRAIDING MACHINE OPERATOR [facility] HEMATOCRIT (HCT) 42.7 36.0 - 47.0 % 07/02/2024 2:22 PM BRAIDING MACHINE OPERATOR [facility] MCV 90.5 82.0 - 96.0 fL 07/02/2024 2:22 PM [facility] MCH 29.9 26.0 - 34.0 pg 07/02/2024 2:22 PM [facility] MCHC 33.0 31.0 - 36.0 g/dL 07/02/2024 2:22 PM [facility] PLATELET COUNT 183 140 - 440 10(3)/mcL 07/02/2024 2:22 PM [facility] RDW 13.2 11.8 - 15.5 % 07/02/2024 2:22 PM [facility] MPV 10.6 9.7 - 12.4 fL 07/02/2024 2:22 PM [facility] NEUTROPHILS 60.3 47.0 - 73.0 % 07/02/2024 2:22 PM [facility] LYMPHOCYTES 30.3 18.0 - 42.0 % 07/02/2024 2:22 PM [facility] MONOCYTES 7.9 4.0 - 12.0 % 07/02/2024 2:22 PM [facility] EOSINOPHILS 1.0 0.0 - 5.0 % 07/02/2024 2:22 PM [facility] BASOPHILS 0.5 0.0 - 1.0 % 07/02/2024 2:22 PM [facility] ABSOLUTE NEUTROPHILS 4.80 1.60 - 7.70 10(3)/mcL 07/02/2024 2:22 PM [facility] ABSOLUTE LYMPHOCYTES 2.41 1.30 - 3.20 10(3)/mcL 07/02/2024 2:22 PM [facility] ABSOLUTE MONOCYTES 0.63 0.20 - 1.00 10(3)/mcL 07/02/2024 2:22 PM [facility] ABSOLUTE EOSINOPHIL 0.08 0.00 - 0.40 10(3)/mcL 07/02/2024 2:22 PM [facility] ABSOLUTE BASOPHILS 0.04 0.00 - 0.10 10(3)/mcL 07/02/2024 2:22 PM BRAIDING MACHINE OPERATOR [facility] NRBC PER 100 WBC 0 07/02/19 2:22 PM [facility] Blood Venipuncture / Unknown 07/02/2024 1:50 PM BRAIDING MACHINE OPERATOR 07/02/2024 2:18 PM BRAIDING MACHINE OPERATOR us Brandon Coles DO HEMATOLOGY ORDERABLES F inal Result [facility] [address] [place] [address] * (ABNORMAL) CMP (Comprehensive Metabolic Panel) (07/02/2024 1:50 PM BRAIDING MACHINE OPERATOR) SODIUM 142 136 - 145 mmol/L 07/02/2024 2:38 PM [facility] POTASSIUM 4.4 3.5 - 5.1 mmol/L 07/02/2024 2:38 PM [facility] CHLORIDE 108(H) 98 - 107 mmol/L 07/02/2024 2:38 PM [facility] CO2, VENOUS 24 22 - 30 mmol/L 07/02/2024 2:38 PM [facility] ANION GAP 14.4 <18.0 mmol/L 07/02/2024 2:38 PM [facility] GLUCOSE 109(H) 70 - 99 mg/dL 07/02/2024 2:38 PM [facility] BUN 44(H) 10 - 20 mg/dL 07/02/2024 2:38 PM [facility] CREATININE, BLOOD 1.30(H) 0.60 - 1.00 mg/dL 07/02/2024 2:38 PM [facility] BUN/CREATININE RATIO 34(H) 12 - 20 ratio 07/02/2024 2:38 PM [facility] TOTAL PROTEIN 9.0(H) 6.0 - 8.0 g/dL 07/02/2024 2:38 PM BRAIDING MACHINE OPERATOR [facility] ALBUMIN 4.8 3.5 - 5.0 g/dL 07/02/2024 2:38 PM BRAIDING MACHINE OPERATOR [facility] A/G RATIO 1.1 1.0 - 2.2 07/02/2024 2:38 PM BRAIDING MACHINE OPERATOR [facility] CALCIUM 10.5 8.7 - 10.5 mg/dL 07/02/2024 2:38 PM BRAIDING MACHINE OPERATOR [facility] T BILI 0.6 0.2 - 1.2 mg/dL 07/02/2024 2:38 PM BRAIDING MACHINE OPERATOR [facility] SGOT (AST) 21 6 - 42 U/L 07/02/2024 2:38 PM BRAIDING MACHINE OPERATOR [facility] SGPT (ALT) 17 6 - 55 U/L 07/02/2024 2:38 PM BRAIDING MACHINE OPERATOR [facility] ALKALINE PHOSPHATASE 58 40 - 150 U/L 07/02/2024 2:38 PM BRAIDING MACHINE OPERATOR [facility] GFR, ESTIMATED 40(L) >=60 07/02/2024 2:38 PM BRAIDING MACHINE OPERATOR [facility] Comment: Creatinine Clearance is the preferred criteria for selecting drug dose adjustments in renally impaired patients. ??The GFR is provided as additional pertinent clinical information. GFR is reported in mL/min/1.73 sq m. Calculation based on the Chronic Kidney Disease Epidemiology Collaboration (CKD- EPI) equation refit without adjustment for race. GFR, EST. 47(L) >=60 025 2:38 PM BRAIDING MACHINE OPERATOR [facility] GFR, EST. NONAFRICAN 39(L) >=60 07/02/2024 2:38 PM BRAIDING MACHINE OPERATOR [facility] Blood Venipuncture / Unknown 07/02/2024 1:50 PM BRAIDING MACHINE OPERATOR 07/02/2024 2:18 PM BRAIDING MACHINE OPERATOR us Brandon Coles DO CHEMISTRY ORDERABLES Fi nal Result [facility] [address] [place] [address] * Critical Care (07/02/2024 1:35 PM BRAIDING MACHINE OPERATOR) Narrative Brandon Coles DO - 07/02/2024 1:35 PM BRAIDING MACHINE OPERATOR Brandon Coles, DO ? 07/02/2024 ??2:18 PM Critical Care Performed by: Brandon Coles, Authorized by: Brandon Coles, DO ?? Critical care provider statement: ??Critical care time (minutes): ??35 us Brandon Coles DO PROCEDURE/MINOR SURGICA L ORDERABLES Final Result from Last 3 Months Insurance MEDICARE C AETNA Care Teams Yarn Texture Machine Operator Relationship Specialty Start Date End Date Brandon Leal MD [address] [place] [id number] PCP - General Family Medicine 08/03/22
[2024-07-03 20:21] LABS: Add Urine Microscopic? YES; Appearance Urine Cloudy (Clear); Bacteria Urine Trace /hpf; Bilirubin Urine Negative (Negative); Blood Urine Non-Hemolyzed Trace (Negative); Color Urine Yellow (Yellow); Glucose Urine UA 3+ mg/dL (Negative); Ketones Urine Negative (Negative); Leukocyte Esterase Ur 2+ LEU/UL (Negative); Need Manual Microscopic Reviewed; Nitrate Urine Negative (Negative); Non Pathogenic Casts 0-2; Protein Urine Negative (Negative); RBC Urine 0-2 /hpf (0-2); Squamous Epithelial Cell Urine Few /hpf (Few); Urobilinogen Urine 0.2 mg/dL (<2.0); WBC Clumps Urine Present /HPF; WBC Urine >100 /hpf (0-3); pH Urine 5.5 (5.0-9.0)
== END 2024-07-03 12:49 | disposition home or self-care (01) ==
LOC: ANHBWCLAB 12:49
PROVIDERS: PCP Family Medicine; Visit Provider Nurse Practitioner Family
DX: R30.0 Dysuria (principal)
CPT/HCPCS: 81001; 87086; 87181

== ENCOUNTER 2024-10-02 13:46 | Outpatient (CLI) | payer MEDICARE, SELFPAY ==
--- OUTSIDE RECORDS SUMMARY | 2024-10-02 14:38 | XMS_ITS | Encounter Summary ---
Author Organization [facility] Address [address] [place] [address] Phone Care Team Providers Care Cosmetologist Name Role Phone Raphael Burch MD Primary Care Provider Brandon Leal MD Primary Care Provider Reason for Visit * Reason Comments Medication Refill Encounter Details Date Type Department Care Team (Late st Contact Info) Description 10/14/2020 Refill [facility] - Internal Medicine - [place] [address] [place] [address] Raphael Burch MD [address] [facility] [place] [address] Medication Refill Social History Tobacco [...] Total Score: 0 07/17/19 21 11:00 AM SENIOR PRODUCT INTEGRITY ENGINEER documented as of this encounter Care Teams Cosmetologist Relationship Specialty Start Date End Date Raphael Burch MD [address] [place] [address] [place] [address] PCP - General Internal Medicine 06/29/18 03/06/22 Brandon Leal MD [address] [place] [address] PCP - General Family Medicine 08/03/22 documented as of this encounter
--- OUTSIDE RECORDS SUMMARY | 2024-10-02 14:38 | XMS_ITS | Continuity of Care Document ---
Author Organization [facility] Address [address] [place] [address] [place] [address] Phone Care Team Providers Care Poacher Wringer Operator Name Role Phone Karthikeyan Meadows Unavailable Unavailable [...] on Encounter Office/outpat ient Visit, Est [facility], [address] [place] [address] [address], [place], [place], [id number], tel:[phone] [facility] No Information 1-201 0 Doisy Edjulia. [address] [facility] , [address], [place], [address], [place]. tel:[phone] [facility], [address], [place], [place], [id number], [place] tel:[phone] SEC [facility] No Information 2-201 0 Doisy Edjulia. [address], [address], [place], [address], [place]. tel:[phone] Office/outpat ient Visit, [facility], [address], [place], [place], [address], [place] tel:[phone] [facility] No Information May-1 4-200 9 Dori Napier. [facility] , [address], [place], [place], [facility], . tel:[phone] Office/outpat ient Visit, [facility], [address] [place] [address] [address], [place], [place], [id number], [place] tel:[phone] [facility] No Information Apr-2 5-200 9 Dori Napier. [address] [place] [address] , [address], [place], [place], [facility], . tel:[phone] Office/outpat ient Visit, [facility], [address] [place] [address] [address], [place], [place], [id number], [place] tel:[phone] [facility] No Information Apr-2 0-200 9 Dori Napier. [address] [place] [address] , [address], [place], [place], [facility], . tel:[phone] Office/outpat ient Visit, [facility], [address] [place] [address] [address], [place], [place], [address], tel:[phone] [facility] No Information Nov-0 9-200 9 Krishnasamy Yevgeniy. [address] [place], [place] [address], [place], [place], [facility], . tel:[phone] Family History Family Member Type Diagnosis Age At Onset No Information Payers Payer name Insurance type Covered libertarian ID Authoriza tilee(s) [place] [id number] [facility] [id number] Social History Type Description Quantity Date Captured [...]
--- OUTSIDE RECORDS SUMMARY | 2024-10-02 14:38 | XMS_ITS | Clinical Summary ---
Author Organization [facility] Address [address] [place] [address] Care Team Providers Care Sales Agent Name Role Phone Brandon Leal MD Primary Care Provider [phone] Farzana Christina PT Unavailable Unavailable Allergies No [...] 10/26/2020 Assessment & Plan (06/15/2021 9:44 AM BRUSHER TENDER): Well controlled, patient reports her mood is [...] education materials about warm handoff program at [facility] for provide to daughter and granddaughter [...] 05/2021 Assessment & Plan (06/15/2021 9:45 AM BRUSHER TENDER): Right worse than left, patient has some [...] care Assessment & Plan (07/27/2021 9:13 PM BRUSHER TENDER): Not well controlled; patient has multiple stressors; [...] REFLUX Assessment & Plan (06/15/2021 9:44 AM BRUSHER TENDER): Not well controlled, patient reports worsening symptoms [...] travel Assessment & Plan (07/27/2021 9:13 PM BRUSHER TENDER): Not well controlled; patient has multiple stressors; including daughter with substance use disorder, and caring for grandchildren. Will add Nifedipine 60 mg daily Refer patient to counseling Continue quinapril 40 mg bid Discontinue propranolol as no benefit Assessment & Plan (06/15/2021 9:43 AM BRUSHER TENDER): Stable, well controlled; blood pressure is at [...] daily Assessment & Plan (06/15/2021 9:43 AM BRUSHER TENDER): Stable, well controlled; total and LDL cholesterol at target Continue atorvastatin 10 mg Assessment & Plan (12/29/2020 10:58 AM CDT): Stable, most recent lipid panel was normal Will continue atorvastatin 10 mg daily Immunizations Immunization Administration Dates Next Due Influenza, Trivalent, IM [...] on file Legal Sex Female 2:08 PM BRUSHER TENDER Gender Identity Not on file Sexual Orientation Not on file Obstetrics History Last Filed Vital Signs Vital Sign Reading Time Taken Comments Blood Pressure 132/64 03/23/2024 9:39 AM CDT Pulse 91 03/23/2024 9:39 AM CDT Temperature 36.9 C (98.4 F) 03/23/2024 9:39 AM CDT Respiratory Rate 17 03/23/2024 9:39 AM CDT Oxygen Saturation 98% 03/23/2024 9:39 AM CDT Inhaled Oxygen Concentration - - Weight 59.9 kg (132 lb) 03/23/2024 9:39 AM CDT Height 153.7 cm (5' 0.5 ) 03/23/2024 9:39 AM CDT Body Mass Index 25.36 03/23/2024 9:39 AM CDT Plan of Treatment Health Maintenance Due Date Last Done Comments Hepatitis B Screening 12/30/1953 Pneumococcal vaccine 65+ (1 of 1 - PCV) 12/30/1985 Zoster Vaccine (1 of 2) 12/30/1985 Well Visit 65+ 12/30/2000 DTaP/Tdap/Td Vaccine (1 - Tdap) 06/14/2006 7 Fall Risk Assessment 08/25/2022 08/25/2021, 07/26/2021, 06/15/2021, Additional history exists Depression Screening 10/08/2022 10/08/2021, 08/25/2021, 07/26/2021, Additional history exists Covid-19 Vaccine (2023-2 5 season) 2024 08/31/2020 Influenza Vaccine (#1) 2024 02/21/2019 Insurance [facility]IC[facility] AETNA MEDICARE Care Teams Sales Agent Relationship Specialty Start Date End Date Brandon Leal MD PCP - General Family Practice 02/15/22 Farzana Christina PT Physical Therapist Physical Therapy 03/18/22
--- OUTSIDE RECORDS SUMMARY | 2024-10-02 14:38 | XMS_ITS | Encounter Summary ---
Author Organization [facility] Address [address] [place] [address] Phone Care Team Providers Care Profiling Machine Set Up Operator Name Role Phone Raphael Burch MD Primary Care Provider Brandon Leal MD Primary Care Provider [phone] Reason for Visit * Reason Comments Medication Refill Encounter Details Date Type Department Care Team (Late st Contact Info) Description 05/07/2020 Refill [facility] - Internal Medicine - [place] [address] [place] [address] Raphael Burch MD [address] [facility] [place] [address] Medication Refill Social History Tobacco [...] 8:51 AM CST Please review and sign. 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
--- OUTSIDE RECORDS SUMMARY | 2024-10-02 14:38 | XMS_ITS | Referral Summary ---
Author Organization [facility] Address [address] [place] [address] Care Team Providers Care Sap Bw Architect Name Role Phone Brandon Leal MD Primary Care Provider [phone] Farzana Christina PT Unavailable Unavailable Allergies No [...] 10/26/2020 Assessment & Plan (06/15/2021 9:44 AM MANUFACTURING ENGINEERING DIRECTOR): Well controlled, patient reports her mood is [...] education materials about warm handoff program at [facility] for provide to daughter and granddaughter [...] 05/2021 Assessment & Plan (06/15/2021 9:45 AM MANUFACTURING ENGINEERING DIRECTOR): Right worse than left, patient has some [...] care Assessment & Plan (07/27/2021 9:13 PM MANUFACTURING ENGINEERING DIRECTOR): Not well controlled; patient has multiple stressors; [...] REFLUX Assessment & Plan (06/15/2021 9:44 AM MANUFACTURING ENGINEERING DIRECTOR): Not well controlled, patient reports worsening symptoms [...] travel Assessment & Plan (07/27/2021 9:13 PM MANUFACTURING ENGINEERING DIRECTOR): Not well controlled; patient has multiple stressors; including daughter with substance use disorder, and caring for grandchildren. Will add Nifedipine 60 mg daily Refer patient to counseling Continue quinapril 40 mg bid Discontinue propranolol as no benefit Assessment & Plan (06/15/2021 9:43 AM MANUFACTURING ENGINEERING DIRECTOR): Stable, well controlled; blood pressure is at [...] daily Assessment & Plan (06/15/2021 9:43 AM MANUFACTURING ENGINEERING DIRECTOR): Stable, well controlled; total and LDL cholesterol [...] on file Legal Sex Female 2:08 PM MANUFACTURING ENGINEERING DIRECTOR Gender Identity Not on file Sexual Orientation [...] Plan of Treatment Not on file Insurance UHC MEDICARE ADVANTAGE AETNA [facility]IC[facility] Address: [facility] [id number] [place] [address] T MEDICARE Care Teams Sap Bw Architect Relationship Specialty Start Date End Date Brandon Leal MD PCP - General Family Practice 02/15/22 Farzana Christina PT Physical Therapist Physical Therapy 03/18/22
--- OUTSIDE RECORDS SUMMARY | 2024-10-02 14:38 | XMS_ITS | Clinical Summary ---
Author Organization [facility] Address [address] [place] [address] Care Team Providers Care Line Leader Name Role Phone Brandon Leal MD Primary Care Provider [phone] Allergies No known active allergies Medications Multiple [...] Essential hypertension, benign 10/30/2018 Mixed hyperlipidemia 10/30/2018 Immunizations Immunization Administration Dates Next Due Covid-19, [...] Comments Blood Pressure 143/85 07/02/2024 3:45 PM DONOR SERVICES SPECIALIST Pulse 99 07/02/2024 3:45 PM DONOR SERVICES SPECIALIST Temperature 36 C (96.8 F) 07/02/2024 3:45 PM DONOR SERVICES SPECIALIST Respiratory Rate 12 07/02/2024 3:45 PM DONOR SERVICES SPECIALIST Oxygen Saturation 100% 07/02/2024 3:45 PM DONOR SERVICES SPECIALIST Inhaled Oxygen Concentration - - Weight 61.7 kg (136 lb) 07/02/2024 1:34 PM DONOR SERVICES SPECIALIST Height 162.6 cm (5' 4 ) 07/02/2024 1:34 PM DONOR SERVICES SPECIALIST Body Mass Index 23.34 07/02/2024 1:34 PM DONOR SERVICES SPECIALIST Plan of Treatment Health Maintenance Due Date Last Done Comments DEXA Bone Density 1935 Hepatitis C Virus (HCV) Screening 1935 TdaP Immunization 1935 Pneumococcal Immunization (50+ years) (1 of 1 - PCV) 12/30/1985 Respiratory Syncytial Virus (RSV) Immunization (Adult) (1 - 1-dose 75+ series) 12/30/2010 Influenza Immunization (#1) 2024 12/0 09/2022, 06/15/2022, 02/21/2019 SARS-COV-2 Immunization ( - season) 2024 08/31/2020 DTaP/Tdap/Td Immunization Discontinued 2023, 06/13/2006 Zoster Immunization Completed 05/09/2024, 03/22/2023 Hepatitis B Immunization Aged Out No longer eligible based on patient's age to complete this topic Meningococcal Immunization (ACWY) Aged Out No longer eligible based on patient's age to complete this topic Rotavirus Immunization Aged Out No lo nger eligible based on patient's age to complete this topic Insurance MEDICARE C AETNA Care Teams Line Leader Relationship Specialty Start Date End Date Brandon Leal MD [address] [place] [address] PCP - General Family Medicine 08/03/22
[2024-10-02 19:53] LABS: Add Urine Microscopic? YES; Appearance Urine Turbid (Clear); Bacteria Urine 4+ /hpf; Bilirubin Urine Negative (Negative); Blood Urine 1+ (Negative); Color Urine Yellow (Yellow); Glucose Urine UA 1+ mg/dL (Negative); Ketones Urine Negative (Negative); Leukocyte Esterase Ur 3+ LEU/UL (Negative); Nitrate Urine Negative (Negative); Non Pathogenic Casts 0-2; Protein Urine Trace mg/dL (Negative); RBC Urine 0-2 /hpf (0-2); Specific Grav Ur 1.013 (1.001-1.035); Squamous Epithelial Cell Urine None Seen /hpf (Few); WBC Urine >100 /hpf (0-3); pH Urine 5.5 (5.0-9.0)
[2024-10-02 20:15] LABS: Hematocrit 36.9 % (37.0-47.0); Hemoglobin 11.5 g/dL (12.0-15.0); Mean Corpuscular HGB Conc 31.2 g/dl (32-36); Mean Corpuscular Hemoglobin 29.9 pg (26-34); Mean Corpuscular Volume 95.8 fl (80-100); Platelet Count Result 172 k/mm3 (150-375); Red Blood Count 3.85 M/mm3 (4.2-5.4); Red Cell Distribution Width 13.4 % (11.5-14.5); White Blood Count 6.9 K/mm3 (4.5-10.0)
[2024-10-02 21:16] LABS: Creatinine Urine 41.6 mg/dL
[2024-10-02 21:21] LABS: MALB Creatinine Ratio 152.2 mg/g (0-30); Microalbumin Urine Random 63.3 mg/L (0-16.7)
[2024-10-02 21:34] LABS: Alanine Aminotransferase 21 U/L (6-35); Albumin Level 4.5 g/dL (3.5-5.1); Alkaline Phosphatase 61 U/L (38-126); Anion Gap 11 mmol/L (4-12); Aspartate Amino Transferase 34 U/L (14-36); Bilirubin,Total 0.6 mg/dL (0.2-1.3); Blood Urea Nitrogen 50 mg/dL (7-17); Calcium 9.5 mg/dL (8.4-10.2); Carbon Dioxide 23 mmol/L (22-30); Chloride 105 mmol/L (98-107); Estimated Glomerular Filt Rate 44; Glucose 102 mg/dL (65-110); Potassium 5.2 mmol/L (3.4-5.0); Sodium 139 mmol/L (137-145)
[2024-10-02 22:03] LABS: Hemoglobin A1C 5.7 % (<5.7)
== END 2024-10-02 13:47 | disposition home or self-care (01) ==
PROVIDERS: PCP Family Medicine; Visit Provider Family Medicine
DX: G62.9 Polyneuropathy, unspecified (principal); E11.9 Type 2 diabetes mellitus without complications; E78.5 Hyperlipidemia, unspecified; R53.83 Other fatigue; Z00.00 Encounter for general adult medical examination without abnormal findings; E83.52 Hypercalcemia; R74.8 Abnormal levels of other serum enzymes; R74.01 Elevation of levels of liver transaminase levels; N39.0 Urinary tract infection, site not specified; I12.9 Hypertensive chronic kidney disease with stage 1 through stage 4 chronic kidney disease, or unspecified chronic kidney disease; N18.9 Chronic kidney disease, unspecified
CPT/HCPCS: 36415; 80053; 81001; 82043; 82306; 82607; 83036; 85027; 87077; 87086; 87186

== ENCOUNTER 2024-10-16 12:22 | Outpatient (CLI) | payer MEDICARE, SELFPAY ==
--- OUTSIDE RECORDS SUMMARY | 2024-10-16 12:25 | XMS_ITS | Encounter Summary ---
Author Organization [facility] Address [address] [place] [address] Phone Care Team Providers Care Sap Data Architect Name Role Phone Raphael Burch MD Primary Care Provider Brandon Leal MD Primary Care Provider Reason for Visit * Reason Comments Medication Refill Encounter Details Date Type Department Care Team (Late st Contact Info) Description 10/14/2020 Refill [facility] - Internal Medicine - [place] [address] [place] [address] Raphael Burch MD [address] [facility] [place] [address] Medication Refill Social History Tobacco [...] Total Score: 0 07/17/19 21 11:00 AM CONE RUNNER documented as of this encounter Care Teams Sap Data Architect Relationship Specialty Start Date End Date Raphael Burch MD [address] [place] [address] [place] [address] PCP - General Internal Medicine 06/29/18 03/06/22 Brandon Leal MD [address] [place] [address] PCP - General Family Medicine 08/03/22 documented as of this encounter
--- OUTSIDE RECORDS SUMMARY | 2024-10-16 12:25 | XMS_ITS | Referral Summary ---
Author Organization [facility] Address [address] [place] [address] Care Team Providers Care Diagnostic Medical Sonographer Name Role Phone Brandon Leal MD Primary Care Provider [phone] Farzana Christina PT Unavailable Unavailable Allergies No [...] 10/26/2020 Assessment & Plan (06/15/2021 9:44 AM SQUILGEER): Well controlled, patient reports her mood is [...] education materials about warm handoff program at [facility] for provide to daughter and granddaughter [...] 05/2021 Assessment & Plan (06/15/2021 9:45 AM SQUILGEER): Right worse than left, patient has some [...] care Assessment & Plan (07/27/2021 9:13 PM SQUILGEER): Not well controlled; patient has multiple stressors; [...] REFLUX Assessment & Plan (06/15/2021 9:44 AM SQUILGEER): Not well controlled, patient reports worsening symptoms [...] travel Assessment & Plan (07/27/2021 9:13 PM SQUILGEER): Not well controlled; patient has multiple stressors; including daughter with substance use disorder, and caring for grandchildren. Will add Nifedipine 60 mg daily Refer patient to counseling Continue quinapril 40 mg bid Discontinue propranolol as no benefit Assessment & Plan (06/15/2021 9:43 AM SQUILGEER): Stable, well controlled; blood pressure is at [...] daily Assessment & Plan (06/15/2021 9:43 AM SQUILGEER): Stable, well controlled; total and LDL cholesterol [...] on file Legal Sex Female 2:08 PM SQUILGEER Gender Identity Not on file Sexual Orientation [...] cm (5' 0.5 ) 03/23/2024 9:39 AM CD T Body Mass Index 25.36 03/23/2024 9:39 AM CDT Plan of Treatment Not on file Insurance [employer] MEDICARE ADVANTAGE AETNA MEDICARE T MEDICARE Care Teams Diagnostic Medical Sonographer Relationship Specialty Start Date End Date Brandon Leal MD PCP - General Family Practice 02/15/22 Farzana Christina PT Physical Therapist Physical Therapy 03/18/22
--- OUTSIDE RECORDS SUMMARY | 2024-10-16 12:25 | XMS_ITS | Continuity of Care Document ---
Author Organization [facility] Address [address] [place] [address] [place] [address] Phone Care Team Providers Care Truck Service Technician Name Role Phone Karthikeyan Meadows Unavailable Unavailable [...] Copied on Encounter Office/outpat ient Visit, [facility], [address] [place] [address] [address], [place], [place], [id number], tel:[phone] [facility] No Information 1-201 0 Doisy Edjulia. [address] [facility] , [address], [place], [address], [place]. tel:[phone] [facility], [address], [place], [place], [id number], [place] tel:[phone] [facility] No Information 2-201 0 Doisy Edjulia. [address], [address], [place], [address], [place]. tel:[phone] Office/outpat ient Visit, [facility] Eye [facility], [address], [place], [place], [id number], [place] tel:[phone] SEC [facility] No Information May-1 4-200 9 Dori Napier. [facility] , [address], [place], [place], [facility], . tel:[phone] Office/outpat ient Visit, [facility] Eye [facility], [address] [place] [address] [address], [place], [place], [id number], [place] tel:[phone] [facility] No Information Apr-2 5-200 9 Dori Napier. [address] [place] [address] , [address], [place], [place], [facility], . tel:[phone] Office/outpat ient Visit, [facility], [address] [place] [address] [address], [place], [place], [id number], [place] tel:[phone] [facility] No Information Apr-2 0-200 9 Dori Napier. [address] [place] [address] , [address], [place], [place], [facility], . tel:[phone] Office/outpat ient Visit, [facility], [address] [place] [address] [address], [place], [place], [id number], tel:[phone] [facility] No Information Nov-0 9-200 9 Krishnasamy Yevgeniy. [address] [place], [place] [address]ate [address], [place], [place], [facility], . tel:[phone] Family History Family Member Type Diagnosis Age At Onset No Information Payers Payer name Insurance type Covered constitution party ID Authoriza tilee(s) [place] [id number] [facility] [id number] Social History Type Description Quantity Date Captured [...]
--- OUTSIDE RECORDS SUMMARY | 2024-10-16 12:25 | XMS_ITS | Clinical Summary ---
Author Organization [facility] Address [address] [place] [address] Care Team Providers Care Public Health Dentist Name Role Phone Brandon Leal MD Primary Care Provider [phone] Farzana Christina PT Unavailable Unavailable Allergies No [...] 10/26/2020 Assessment & Plan (06/15/2021 9:44 AM SUPERVISOR SALVAGE): Well controlled, patient reports her mood is [...] education materials about warm handoff program at [facility] for provide to daughter and granddaughter [...] 05/2021 Assessment & Plan (06/15/2021 9:45 AM SUPERVISOR SALVAGE): Right worse than left, patient has some [...] care Assessment & Plan (07/27/2021 9:13 PM SUPERVISOR SALVAGE): Not well controlled; patient has multiple stressors; [...] REFLUX Assessment & Plan (06/15/2021 9:44 AM SUPERVISOR SALVAGE): Not well controlled, patient reports worsening symptoms [...] travel Assessment & Plan (07/27/2021 9:13 PM SUPERVISOR SALVAGE): Not well controlled; patient has multiple stressors; including daughter with substance use disorder, and caring for grandchildren. Will add Nifedipine 60 mg daily Refer patient to counseling Continue quinapril 40 mg bid Discontinue propranolol as no benefit Assessment & Plan (06/15/2021 9:43 AM SUPERVISOR SALVAGE): Stable, well controlled; blood pressure is at [...] daily Assessment & Plan (06/15/2021 9:43 AM SUPERVISOR SALVAGE): Stable, well controlled; total and LDL cholesterol [...] on file Legal Sex Female 2:08 PM SUPERVISOR SALVAGE Gender Identity Not on file Sexual Orientation [...] 08/31/2020 Influenza Vaccine (#1) 2024 02/21/2019 Insurance [facility]IC[facility] Address: [address] [address] [place] [address] [facility] AETNA MEDICARE Care Teams Public Health Dentist Relationship Specialty Start Date End Date Brandon Leal MD PCP - General Family Practice 02/15/22 Farzana Christina PT Physical Therapist Physical Therapy 03/18/22
--- OUTSIDE RECORDS SUMMARY | 2024-10-16 12:25 | XMS_ITS | Clinical Summary ---
Author Organization [facility] Address [address] [place] [address] Care Team Providers Care Retail Team Member Name Role Phone Brandon Leal MD Primary Care Provider [phone] Allergies No known active allergies Medications Multiple [...] Comments Blood Pressure 143/85 07/02/2024 3:45 PM BREWERY REPRESENTATIVE Pulse 99 07/02/2024 3:45 PM BREWERY REPRESENTATIVE Temperature 36 C (96.8 F) 07/02/2024 3:45 PM BREWERY REPRESENTATIVE Respiratory Rate 12 07/02/2024 3:45 PM BREWERY REPRESENTATIVE Oxygen Saturation 100% 07/02/2024 3:45 PM BREWERY REPRESENTATIVE Inhaled Oxygen Concentration - - Weight 61.7 kg (136 lb) 07/02/2024 1:34 PM BREWERY REPRESENTATIVE Height 162.6 cm (5' 4 ) 07/02/2024 1:34 PM BREWERY REPRESENTATIVE Body Mass Index 23.34 07/02/2024 1:34 PM BREWERY REPRESENTATIVE Plan of Treatment Health Maintenance Due Date [...] topic Insurance MEDICARE C AETNA Care Teams Retail Team Member Relationship Specialty Start Date End Date Brandon Leal MD [address] [place] [address] PCP - General Family Medicine 08/03/22
--- OUTSIDE RECORDS SUMMARY | 2024-10-16 12:25 | XMS_ITS | Encounter Summary ---
Author Organization [facility] Address [address] [place] [address] Phone Care Team Providers Care Social Worker Palliative Care Name Role Phone Raphael Burch MD Primary Care Provider Brandon Leal MD Primary Care Provider [phone] Reason for Visit * Reason Comments Medication Refill Encounter Details Date Type Department Care Team (Late st Contact Info) Description 05/07/2020 Refill [facility] - Internal Medicine - [place] [address] [place] [address] Raphael Burch MD [address] [facility] [place] [address] Medication Refill Social History Tobacco [...] 8:51 AM CST Please review and sign. BOTOMY SERVICES REPRESENTATIVE documented in this encounter Plan of Treatment Not on file documented as of this encounter Visit Diagnoses Not on filedocumented in this encounter Care Teams Social Worker Palliative Care Relationship Specialty Start Date End Date Raphael Burch MD [address] [place] [address] PCP - General Internal Medicine 06/29/18 03/06/22 Brandon Leal MD [address] [facility] [place] [address] PCP - General Family Medicine 08/03/22 documented as of this encounter
[2024-10-16 20:18] LABS: Add Urine Microscopic? YES; Appearance Urine Cloudy (Clear); Bacteria Urine 4+ /hpf; Bilirubin Urine Negative (Negative); Blood Urine Trace (Negative); Color Urine Yellow (Yellow); Glucose Urine UA 3+ mg/dL (Negative); Ketones Urine Negative (Negative); Leukocyte Esterase Ur 3+ LEU/UL (Negative); Nitrate Urine Negative (Negative); Non Pathogenic Casts 0-2; Protein Urine Trace mg/dL (Negative); RBC Urine 0-2 /hpf (0-2); Specific Grav Ur 1.018 (1.001-1.035); Squamous Epithelial Cell Urine Occasional /hpf (Few); Urobilinogen Urine 0.2 mg/dL (<2.0); WBC Urine >100 /hpf (0-3); pH Urine 5.5 (5.0-9.0)
== END 2024-10-16 12:23 | disposition home or self-care (01) ==
PROVIDERS: PCP Family Medicine; Visit Provider Family Medicine
DX: N30.00 Acute cystitis without hematuria (principal)
CPT/HCPCS: 81001

== ENCOUNTER 2024-11-28 12:52 | Outpatient (CLI) | payer MEDICARE, SELFPAY ==
[2024-11-28 18:45] LABS: Add Urine Microscopic? YES; Appearance Urine Turbid (Clear); Bacteria Urine Rare /hpf; Bilirubin Urine Negative (Negative); Blood Urine 1+ (Negative); Color Urine Yellow (Yellow); Glucose Urine UA 2+ mg/dL (Negative); Ketones Urine Negative (Negative); Leukocyte Esterase Ur 3+ LEU/UL (Negative); Nitrate Urine Negative (Negative); Non Pathogenic Casts 0-2; Protein Urine Trace mg/dL (Negative); RBC Urine 0-2 /hpf (0-2); Specific Grav Ur 1.019 (1.001-1.035); Squamous Epithelial Cell Urine Occasional /hpf (Few); Urobilinogen Urine 0.2 mg/dL (<2.0); WBC Urine >100 /hpf (0-3); pH Urine 5.5 (5.0-9.0)
[2024-11-28 18:52] LABS: Budding Yeast Urine Present /hpf
== END 2024-11-28 12:53 | disposition home or self-care (01) ==
LOC: ANHBWCLAB 12:53
PROVIDERS: PCP Family Medicine; Visit Provider Family Medicine
DX: N30.00 Acute cystitis without hematuria (principal)
CPT/HCPCS: 81001; 87086; 87181

== ENCOUNTER 2024-12-25 09:35 | Outpatient (CLI) | payer MEDICARE, SELFPAY ==
--- OUTSIDE RECORDS SUMMARY | 2024-12-25 09:46 | XMS_ITS | Referral Summary ---
Author Organization [facility] Address [address] [place] [address] Care Team Providers Care Bull Bucker Name Role Phone Brandon Leal MD Primary Care Provider [phone] Farzana Christina PT Unavailable Unavailable Encounters Date Type Department Care Team Description 12/16/2024 12:26 PM CDT - 12/16/2024 1:53 PM CDT Emergency [facility] Emergency Department [address] [place] [address] Right wrist pain (Primary Dx) Discharge Disposition: Discharge to home or self care 10/25/2024 8:45 AM CDT Office Visit [facility] [address] [place] [place] [address] Ana Rosa Becker NP Thrush, oral (Primary Dx) from Last 3 Months Allergies No known active allergies Medications cholecalciferol, [...] day with meals 180 tablet 2 Active hydroCHLOROthiazid e (HYDRODIURIL) 25 mg tablet Take 1 tablet [...] q.8 hours PRN 40 tablet 3 Active naproxen (NAPROSYN) 500 mg tablet Take 1 tablet (500 mg total) by mouth 2 (two) times a day with meals 30 tablet 5 Active nystatin 100,000 unit/mL suspensionIndicati ons:Thrush, oral Take 5 mL (500,000 Units total) by mouth 4 (four) times a day Swish in mouth and swallow. 280 mL 5 12/25/19 25 cephalexin (KEFLEX) 500 mg capsuleIndications :Urinary Tract/Genitourinar y Infection Take 1 capsule (500 mg total) by mouth 2 (two) times a day for 7 days 14 capsule 5 12/24/19 25 Active Problems Problem Noted Date Diagnosed Date Bilateral leg edema 10/26/2020 Assessment & Plan (10/26/2020 9:06 AM CDT): Has pitting edema in both legs, as well as some sense of loss of sensation in both feet Will start furosemide 20 daily at this time, continue to monitor Dysthymia 10/26/2020 Assessment & Plan (06/15/2021 9:44 AM SCRUM COACH): Well controlled, patient reports her mood is [...] education materials about warm handoff program at [facility] for provide to daughter and granddaughter [...] 05/2021 Assessment & Plan (06/15/2021 9:45 AM SCRUM COACH): Right worse than left, patient has some [...] care Assessment & Plan (07/27/2021 9:13 PM SCRUM COACH): Not well controlled; patient has multiple stressors; [...] REFLUX Assessment & Plan (06/15/2021 9:44 AM SCRUM COACH): Not well controlled, patient reports worsening symptoms [...] travel Assessment & Plan (07/27/2021 9:13 PM SCRUM COACH): Not well controlled; patient has multiple stressors; including daughter with substance use disorder, and caring for grandchildren. Will add Nifedipine 60 mg daily Refer patient to counseling Continue quinapril 40 mg bid Discontinue propranolol as no benefit Assessment & Plan (06/15/2021 9:43 AM SCRUM COACH): Stable, well controlled; blood pressure is at [...] daily Assessment & Plan (06/15/2021 9:43 AM SCRUM COACH): Stable, well controlled; total and LDL cholesterol [...] Date Recorded PHQ-2 Total Score 2 10/08/2021 Personal Safety Answer Date Recorded Have you ever been in or are you currently in a harmful physical or emotional relationship or is someone making you feel afraid or unsafe? Denies 12/16/2024 Comments No Sex and Gender Information Value Date Recorded Sex Assigned at Not on file Legal Sex Female 2:08 PM SCRUM COACH Gender Identity Not on file Sexual Orientation Not on file Last Filed Vital Signs Vital Sign Reading Time Taken Comments Blood Pressure 181/67 12/16/2024 12:17 PM CDT Pulse 78 12/16/2024 12:17 PM CDT Temperature 36.9 C (98.4 F) 12/16/2024 12:17 PM CDT Respiratory Rate 16 12/16/2024 12:17 PM CDT Oxygen Saturation 99% 12/16/2024 12:17 PM CDT Inhaled Oxygen Concentration - - Weight 59.9 kg (132 lb) 12/16/2024 12:17 PM CDT Height 152.4 cm (5') 12/16/2024 12:17 PM CDT Body Mass Index 25.78 12/16/2024 12:17 PM CDT Plan of Treatment Not on file Procedures Procedure Name Priority Date/Time Associated Diagnosis Comments URINALYSIS, MICROSCOPIC ONLY STAT 12/16/2024 1:49 PM CDT URINE CULTURE STAT 12/16/2024 1:49 PM CDT URINALYSIS AND REFLEX TO MICROSCOPIC AND CULTURE STAT 12/16/2024 1:49 PM CDT XR HAND RIGHT 3 OR MORE VIEWS ED 12/16/2024 12:59 PM CDT XR RADIUS ULNA RIGHT 2 VIEWS ED 12/16/2024 12:59 PM CDT from Last 3 Months Results * (ABNORMAL) Urinalysis reflex to microscopic and culture Urine (12/16/2024 1:49 PM CDT) Color, ur Straw Yellow Clarity, ur Turbid(A) Clear [facility] ([facility]) Specific gravity, ur 1.012 1.003 - 1.030 [facility] ([facility]) pH, urine 5.5 [facility] ([facility]) Comment: Interpretive Data U rine pH is affected by diet, medications, systemic acid-base disturbances, and renal tubular function. pH may affect urinary stone formation. For example, urine pH below 6.0 may help reduce the tendency for calcium phosphate stones and pH greater than 6.0 may reduce the tendency for uric acid stone formation. Source: [employer] Current Interpretive Data was last revised on 2017 Protein, ur ql Negative Negative [facility] ([facility]) Glucose, ur ql 4+(A) Negative [facility] ([facility]) Ketones, ur Negative Negative [facility] ([facility]) Bilirubin, ur Negative Negative [facility] ([facility]) Blood, ur Trace(A) Negative [facility] ([facility]) Urobilinogen, ur <2.0 <2.0 mg/dL [facility] ([facility]) Nitrite, ur Negative Negative [facility] ([facility]) Leukocyte esterase, ur 4+(A) Negative [facility] ([facility]) UA reflex comment Reflex to microscopic UA will be performed. [facility] ([facility]) Urine 12/16/2024 1:49 PM CDT 12/16/2024 1:54 PM CDT Lin Braun CATEGORY DEVELOPMENT MANAGER LAB MICROBIOLOGY - GENERAL OR DERABLES Final Result Performing Organization Address City/[facility]/ZIP Co de Phone Number [facility] ([facility]) [address] [facility] [place] [address] * (ABNORMAL) Urinalysis, microscopic only (12/16/2024 1:49 PM CDT) WBC, ur >50(A) 0 - 5 /HPF RBC, ur 6-10(A) 0 - 2 /HPF [facility] ([facility]) Epithelial cells, squamous, ur 11-20(A) 0 - 5 /HPF [facility] ([facility]) Bacteria, ur 1+(A) [facility] ([facility]) Mucous, ur Present(A) [facility] ([facility]) Culture Reflex Comment Reflex to urine culture will be performed. [facility] ([facility]) Urine 12/16/2024 1:49 PM CDT 12/16/2024 1:54 PM CDT Lin Braun CATEGORY DEVELOPMENT MANAGER LAB URINE ORDERABLES Final Re sult [facility] ([facility]) [address] [facility] [address] [place], [place] [id number] * Urine culture Urine (12/16/2024 1:49 PM CDT) Report Final Report: Less than 100,000 colonies/mL (clinically insignificant growth based on current clinical standards) Comment:Testing performed by : [facility], [address] [place] [address] Organism (CLINICALLY INSIGNIFICANT GROWTH [facility] ([facility]) Urine 12/16/2024 1:49 PM CDT 12/16/2024 4:24 PM CDT Narrative [facility] ([facility]) - 12/18/2024 7:38 AM CDT Urine culture reflexed based upon urinalysis results. Testing performed by [facility] ([phone]) Lin Braun NP LAB MICROBIOLOGY - GENERAL OR DERABLES Final Result [facility] ([facility]) [address] [facility] [place] [address] * XR Hand Right 3 or More Views (12/16/2024 12:59 PM CDT) Anatomical Region Laterality Modality Upper Extremities, Hand Right Computed Radiography 12/16/2024 1:03 PM CDT Narrative 12/16/2024 1:05 PM CDT EXAM DESCRIPTION: XR RADIUS ULNA RIGHT 2 VIEWS; XR HAND RIGHT 3 OR MORE VIEWS REASON FOR STUDY: pain c/o right hand pain since last Monday. nki TECHNIQUE: 2 radiographic view(s) of the right radius and ulna . 3 radiographic views of the right hand. COMPARISON: None FINDINGS: There is mild osteopenia. There is no definite evidence of acute displaced fracture or dislocation involving the right radius, ulna, and hand. There are degenerative changes of the right elbow with joint space narrowing, minimal sclerosis, and minimal spurring. There are degenerative changes of the radiocarpal, carpal carpal, carpometacarpal, metacarpophalangeal, and interphalangeal joints, which is most significant involving the 1st carpometacarpal joint with joint space narrowing, sclerosis, and mild spurring. There is a tiny olecranon enthesophyte noted. There are scattered faint vascular calcifications noted. The remainder of the visualized soft tissues are acutely grossly unremarkable. IMPRESSION: 1. Mild osteopenia without definite evidence of acute displaced fracture or dislocation involving the right radius, ulna, and hand. THIS IS AN ELECTRONICALLY VERIFIED FINAL REPORT 12/16/2024 1:05 PM - Electronically signed by Ivana Lynne D.O. PS: PS Report ID: [id number] Reading Location: [id number] Procedure Note Ivana Lynne, DO - 12/16/2024 EXAM DESCRIPTION: XR RADIUS ULNA RIGHT 2 VIEWS; XR HAND RIGHT 3 OR MOREVIEWS REASON FOR STUDY: pain c/o right hand pain since last Monday. nki TECHNIQUE: 2 radiographic view(s) of the right radius and ulna . 3 radiographic views of the right hand. COMPARISON: None FINDINGS: There is mild osteopenia. There is no definite evidence of acutedisplaced fracture or dislocation involving the right radius, ulna, and hand. Thereare degenerative changes of the right elbow with joint space narrowing,minimal sclerosis, and minimal spurring. There are degenerative changes of the radiocarpal, carpal carpal, carpometacarpal, metacarpophalangeal, and interphalangeal joints, which is most significant involving the 1st carpometacarpal joint with joint space narrowing, sclerosis, and mild spurring. There is a tiny olecranon enthesophyte noted. There arescattered faint vascular calcifications noted. The remainder of the visualized soft tissues are acutely grossly unremarkable. IMPRESSION: 1. Mild osteopenia without definite evidence of acute displaced fractureor dislocation involving the right radius, ulna, and hand. THIS IS AN ELECTRONICALLY VERIFIED FINAL REPORT 12/16/2024 1:05 PM - Electronically signed by Ivana Lynne D.O. PS: PS Report ID: [id number] Reading Location: [id number] Lin Braun NP IMG XR PROCEDURES Final Resul t * XR Radius Ulna Right 2 Views (12/16/2024 12:59 PM CDT) Anatomical Region Laterality Modality Upper Extremities, Forearm Right Compu naseem Radiography 12/16/2024 1:03 PM CDT Narrative 12/16/2024 1:05 PM CDT EXAM DESCRIPTION: XR RADIUS ULNA RIGHT 2 VIEWS; XR HAND RIGHT 3 OR MORE VIEWS REASON FOR STUDY: pain c/o right hand pain since last Monday. nki TECHNIQUE: 2 radiographic view(s) of the right radius and ulna . 3 radiographic views of the right hand. COMPARISON: None FINDINGS: There is mild osteopenia. There is no definite evidence of acute displaced fracture or dislocation involving the right radius, ulna, and hand. There are degenerative changes of the right elbow with joint space narrowing, minimal sclerosis, and minimal spurring. There are degenerative changes of the radiocarpal, carpal carpal, carpometacarpal, metacarpophalangeal, and interphalangeal joints, which is most significant involving the 1st carpometacarpal joint with joint space narrowing, sclerosis, and mild spurring. There is a tiny olecranon enthesophyte noted. There are scattered faint vascular calcifications noted. The remainder of the visualized soft tissues are acutely grossly unremarkable. IMPRESSION: 1. Mild osteopenia without definite evidence of acute displaced fracture or dislocation involving the right radius, ulna, and hand. THIS IS AN ELECTRONICALLY VERIFIED FINAL REPORT 12/16/2024 1:05 PM - Electronically signed by Ivana Lynne D.O. PS: PS Report ID: [id number] Reading Location: [id number] Procedure Note Ivana Lynne, - 12/16/2024 EXAM DESCRIPTION: XR RADIUS ULNA RIGHT 2 VIEWS; XR HAND RIGHT 3 OR MOREVIEWS REASON FOR STUDY: pain c/o right hand pain since last Monday. nki TECHNIQUE: 2 radiographic view(s) of the right radius and ulna . 3 radiographic views of the right hand. COMPARISON: None FINDINGS: There is mild osteopenia. There is no definite evidence of acutedisplaced fracture or dislocation involving the right radius, ulna, and hand. Thereare degenerative changes of the right elbow with joint space narrowing,minimal sclerosis, and minimal spurring. There are degenerative changes of the radiocarpal, carpal carpal, carpometacarpal, metacarpophalangeal, and interphalangeal joints, which is most significant involving the 1st carpometacarpal joint with joint space narrowing, sclerosis, and mild spurring. There is a tiny olecranon enthesophyte noted. There arescattered faint vascular calcifications noted. The remainder of the visualized soft tissues are acutely grossly unremarkable. IMPRESSION: 1. Mild osteopenia without definite evidence of acute displaced fractureor dislocation involving the right radius, ulna, and hand. THIS IS AN ELECTRONICALLY VERIFIED FINAL REPORT 12/16/2024 1:05 PM - Electronically signed by Ivana Lynne D.O. PS: PS Report ID: [id number] Reading Location: [place] [address] Lin Braun CATEGORY DEVELOPMENT MANAGER IMG XR PROCEDURES Final Resul t from Last 3 Months Insurance [facility] MEDICARE ADVANTAGE AET MEDICARE T MEDICARE Care Teams Bull Bucker Relationship Specialty Start Date End Date Brandon Leal MD PCP - General Family Practice 02/15/22 Farzana Christina PT Physical Therapist Physical Therapy 03/18/22
--- OUTSIDE RECORDS SUMMARY | 2024-12-25 09:46 | XMS_ITS | Encounter Summary ---
Author Organization [facility] Address [address] [place] [address] Phone Care Team Providers Care Rail Signal Designer Name Role Phone Raphael Burch MD Primary Care Provider Brandon Leal MD Primary Care Provider [phone] Reason for Visit * Reason Comments Medication Refill Encounter Details Date Type Department Care Team (Late st Contact Info) Description 05/07/2020 Refill [facility] - [place] [address] [place] [address] Raphael Burch MD [address] [place] [address] Medication Refill Social History Tobacco Use Types [...] 8:51 AM CST Please review and sign. NESS ASSOCIATE documented in this encounter Plan of Treatment Not on file documented as of this encounter Visit Diagnoses Not on filedocumented in this encounter Care Teams Rail Signal Designer Relationship Specialty Start Date End Date Raphael Burch MD [address] [place] [address] PCP - General Internal Medicine 06/29/18 03/06/22 Brandon Leal MD [address] [facility] [place] [address] PCP - General Family Medicine 08/03/22 documented as of this encounter
--- OUTSIDE RECORDS SUMMARY | 2024-12-25 09:46 | XMS_ITS | Clinical Summary ---
Author Organization [facility] Address [address] [place] [address] Care Team Providers Care Data Collection Interviewer Name Role Phone Brandon Leal MD Primary Care Provider [phone] Allergies No known active allergies Medications Multiple [...] Comments Blood Pressure 143/85 07/02/2024 3:45 PM TEACHING PASTOR Pulse 99 07/02/2024 3:45 PM TEACHING PASTOR Temperature 36 C (96.8 F) 07/02/2024 3:45 PM TEACHING PASTOR Respiratory Rate 12 07/02/2024 3:45 PM TEACHING PASTOR Oxygen Saturation 100% 07/02/2024 3:45 PM TEACHING PASTOR Inhaled Oxygen Concentration - - Weight 61.7 kg (136 lb) 07/02/2024 1:34 PM TEACHING PASTOR Height 162.6 cm (5' 4) 07/02/2024 1:34 PM TEACHING PASTOR Body Mass Index 23.34 07/02/2024 1:34 PM TEACHING PASTOR Plan of Treatment Health Maintenance Due Date Last Done Comments DEXA Bone Density 1935 Hepatitis C Virus (HCV) Screening 1935 TdaP Immunization 1935 Pneumococcal Immunization (5 0+ years) (1 of 1 - PCV) 12/30/1985 Respiratory Syncytial Virus (RSV) Immunization (Adult) (1 - 1-dose 75+ series) 12/30/2010 SARS-COV-2 Immunization (2 - season) 2024 08/31/2020 Influenza Immunization (#1) 2025 12/0 09/2022, 06/15/2022, 02/21/2019 DTaP/Tdap/Td Immunization Discontinued 2023, 06/13/2006 Zoster Immunization Completed 05/09/2024, 03/22/2023 Hepatitis B Immunization Aged Out No longer eligible based on patient's age to complete this topic Human Papillomavirus (HPV) Immunization Aged Out No longer eligible based on patient's age to complete this topic Meningococcal Immunization (ACWY) Aged Out No longer eligible based on patient's age to complete this topic Rotavirus Immunization Aged Out No lo nger eligible based on patient's age to complete this topic Insurance MEDICARE C [employer]ET[employer] Care Teams Data Collection Interviewer Relationship Specialty Start Date End Date Brandon Leal MD [address] [place] [address] PCP - General Family Medicine 08/03/22
--- OUTSIDE RECORDS SUMMARY | 2024-12-25 09:46 | XMS_ITS | Continuity of Care Document ---
Author Organization [facility] Address [address] [place] [address] [place] [address] Phone Care Team Providers Care Drafting Supervisor Name Role Phone Karthikeyan Meadows Unavailable Unavailable [...] Copied on Encounter Office/outpat ient Visit, [facility], [address] [place] [address] [address], [place], [place], [id number], tel:[phone] [facility] No Information 1-201 0 Doisy Edjulia. [address] [facility] , [address], [place], [address], [place]. tel:[phone] [facility], [address], [place], [place], [id number], [place] tel:[phone] SEC [facility] No Information 2-201 0 Doisy Edjulia. [address], [address], [place], [address], [place]. tel:[phone] Office/outpat ient Visit, [facility], [address], [place], [place], [id number], [place] tel:[phone] SEC [facility] No Information May-1 4-200 9 Dori Napier. [facility] , [address], [place], [place], [facility], . tel:[phone] Office/outpat ient Visit, [facility], [address] [place] [address] [address], [place], [place], [id number], [place] tel:[phone] SEC [facility] No Information Apr-2 5-200 9 Dori Napier. [address] [place] [address] , [address], [place], [place], [facility], . tel:[phone] Office/outpat ient Visit, [facility], [address] [place] [address] [address], [place], [place], [id number], [place] tel:[phone] SEC [facility] No Information Apr-2 0-200 9 Dori Napier. [address] [place] [address] , [address], [place], [place], [facility], . tel:[phone] Office/outpat ient Visit, [facility], [address] [place] [address] [address], [place], [place], [id number], tel:[phone] SEC [facility] No Information Nov-0 9-200 9 Krishnasamy Yevgeniy. [address] [place], [place] [address], [place], [place], [facility], . tel:[phone] Family History Family Member Type Diagnosis Age At Onset No Information Payers Payer name Insurance type Covered constitution party ID Authoriza tilee(s) [place] [id number] [facility] [id number] Social History Type Description Quantity Date Captured [...]
--- OUTSIDE RECORDS SUMMARY | 2024-12-25 09:46 | XMS_ITS | Encounter Summary ---
Author Organization [facility] Address [address] [place] [address] Phone Care Team Providers Care Plate Finisher Name Role Phone Raphael Burch MD Primary Care Provider Brandon Leal MD Primary Care Provider [phone] Reason for Visit * Reason Comments Medication Refill Encounter Details Date Type Department Care Team (Late st Contact Info) Description 10/14/2020 Refill [facility] - [facility] - [place] [address] [place] [address] Raphael Burch MD [address] [facility] [address] Medication Refill Social History Tobacco [...] Total Score: 0 07/17/19 21 11:00 AM CARDIAC CARE UNIT NURSE documented as of this encounter Care Teams Plate Finisher Relationship Specialty Start Date End Date Raphael Burch MD [address] [place] [address] [place] [address] PCP - General Internal Medicine 06/29/18 03/06/22 Brandon Leal MD [address] [place] [address] PCP - General Family Medicine 08/03/22 documented as of this encounter
--- OUTSIDE RECORDS SUMMARY | 2024-12-25 09:46 | XMS_ITS | Clinical Summary ---
Author Organization [facility] Address 1 [place] [address] Care Team Providers Care Pocket Setter Lockstitch Name Role Phone Brandon Leal MD Primary Care Provider [phone] Farzana Christina PT Unavailable Unavailable Allergies No [...] BY MOUTH EVERY DAY 90 tablet 1 10/12/202 2 Active ondansetron ODT (ZOFRAN-ODT) 4 mg [...] 10/26/2020 Assessment & Plan (06/15/2021 9:44 AM HOPS FARMWORKER): Well controlled, patient reports her mood is [...] education materials about warm handoff program at [facility] for provide to daughter and granddaughter [...] 05/2021 Assessment & Plan (06/15/2021 9:45 AM HOPS FARMWORKER): Right worse than left, patient has some [...] care Assessment & Plan (07/27/2021 9:13 PM HOPS FARMWORKER): Not well controlled; patient has multiple stressors; [...] REFLUX Assessment & Plan (06/15/2021 9:44 AM HOPS FARMWORKER): Not well controlled, patient reports worsening symptoms [...] travel Assessment & Plan (07/27/2021 9:13 PM HOPS FARMWORKER): Not well controlled; patient has multiple stressors; including daughter with substance use disorder, and caring for grandchildren. Will add Nifedipine 60 mg daily Refer patient to counseling Continue quinapril 40 mg bid Discontinue propranolol as no benefit Assessment & Plan (06/15/2021 9:43 AM HOPS FARMWORKER): Stable, well controlled; blood pressure is at [...] daily Assessment & Plan (06/15/2021 9:43 AM HOPS FARMWORKER): Stable, well controlled; total and LDL cholesterol at target Continue atorvastatin 10 mg Assessment & Plan (12/29/2020 10:58 AM CDT): Stable, most recent lipid panel was normal Will continue atorvastatin 10 mg daily Encounters Date Type Department Care Team Description 12/16/2024 12:26 PM CDT - 12/16/2024 1:53 PM CDT Emergency [facility] Emergency Department 1 [place] [address] Right wrist pain (Primary Dx) Discharge Disposition: Discharge to home or self care 10/25/2024 8:45 AM CDT Office Visit [facility] Medical Group [facility] Care at [place] [address] [place] [address] Ana Rosa Becker NP Thrush, oral (Primary Dx) from Last 3 Months Immunizations Immunization Administration Dates Next Due Influenza, [...] nary artery disease; Coronary artery disease Mother Allen nary artery disease; Depression Mother Depression; Heart disease [...] on file Legal Sex Female 2:08 PM HOPS FARMWORKER Gender Identity Not on file Sexual Orientation [...] 12/16/2024 12:17 PM CDT Plan of Treatment Health Maintenance Due Date Last Done Comments Osteoporosis Screening-Bone Density Scan 1935 Hepatitis B Screening 12/30/1953 Pneumococcal vaccine 65+ (1 of 1 - PCV) 12/30/1985 Zoster Vaccine (1 of 2) 12/30/1985 Well Visit 65+ 12/30/2000 DTaP/Tdap/Td Vaccine (1 - Tdap) 06/14/2006 7 Fall Risk Assessment 08/25/2022 08/25/2021, 07/26/2021, 06/15/2021, Additional history exists Depression Screening 10/08/2022 10/08/2021, 08/25/2021, 07/26/2021, Additional history exists Covid-19 Vaccine (2 - 2023-2 5 season) 2024 08/31/2020 Influenza Vaccine (#1) 2025 02/21/2019 Procedures Procedure Name Priority Date/Time Associated Diagnosis [...] [facility] (BHUMIKA) pH, urine 5.5 [facility] (BHUIMKA) Comment: Interpretive Data U rine pH is affected by diet, medications, systemic acid-base disturbances, and renal tubular function. pH may affect urinary stone formation. For example, urine pH below 6.0 may help reduce the tendency for calcium phosphate stones and pH greater than 6.0 may reduce the tendency for uric acid stone formation. Source: [facility] Current Interpretive Data was last revised on [...] CDT 12/16/2024 1:54 PM CDT Lin Braun NP LAB MICROBIOLOGY - GENERAL OR DERABLES Final Result Performing Organization Address City/State/[facility] Co de Phone Number TWILA WOLF (BHUMIKA) 1 [facility] [place] [address] * (ABNORMAL) Urinalysis, microscopic only (12/16/2024 1:49 PM CDT) WBC, ur >50(A) 0 - 5 /HPF RBC, ur 6-10(A) 0 - 2 /HPF [facility] (BHUMIKA) Epithelial cells, squamous, ur 11-20(A) 0 - 5 /HPF [facility] (BHUMIKA) Bacteria, ur 1+(A) [facility] ([facility]) Mucous, ur Present(A) CERNER A (BHUMIKA) Culture Reflex Comment Reflex to urine culture will be performed. [facility] (BHUMIKA) Urine 12/16/2024 1:49 PM CDT 12/16/2024 1:54 PM CDT Lin Braun NP LAB URINE ORDERABLES Final Re sult Performing Organization Address [facility] Co de Phone Number TWILA WOLF (BHUMIKA) 1 [facility] [place] [address] * Urine culture Urine (12/16/2024 1:49 PM CDT) Report Final Report: Less than 100,000 colonies/mL (clinically insignificant growth based on current clinical standards) Comment:Testing performed by : [facility], 1 [place] [address] Organism (CLINICALLY INSIGNIFICANT GROWTH [facility] (BHUM[facility] Urine 12/16/2024 1:49 PM CDT 12/16/2024 4:24 PM CDT Narrative [facility] (BHUM[facility]A) - 12/18/2024 7:38 AM CDT Urine culture reflexed based upon urinalysis results. Testing performed by [facility] Microbiology Laboratory ([phone]) Lin Braun BUS DRIVER LAB MICROBIOLOGY - GENERAL OR DERABLES Final Result Performing Organization Address [facility] Co de Phone Number [facility]ER [facility] BHUMIKA 1 [facility] Department [place] [address] * XR Hand Right 3 or More [...] Ivana Lynne D.O. PS: PS Report ID: [id number] Reading Location: [id number] Procedure Note Ivana Lynne, - 12/16/2024 EXAM [...] Ivana Lynne D.O. PS: PS Report ID: [id number] Reading Location: [place] [address] Lin Braun NP IMG XR PROCEDURES Final [...] Ivana Lynne D.O. PS: PS Report ID: [id number] Reading Location: [id number] Procedure Note Ivana Lynne, DO - 12/16/2024 [...] Ivana Lynne D.O. PS: PS Report ID: [id number] Reading Location: [place] [address] Lin Braun BUS DRIVER IMG XR PROCEDURES Final Resul t from Last 3 Months Insurance [facility] MEDICARE [facility] Address: [address] [address] [place] [address] [facility] [employer]ET[employer] MEDICARE Care Teams Pocket Setter Lockstitch Relationship Specialty Start Date End Date Brandon Leal MD PCP - General Family Practice 02/15/22 Farzana Christina PT Physical Therapist Physical Therapy 03/18/22
[2024-12-25 18:34] LABS: Add Urine Microscopic? YES; Appearance Urine Turbid (Clear); Budding Yeast Urine Present /hpf; Glucose Urine UA 3+ mg/dL (Negative); Leukocyte Esterase Ur 3+ LEU/UL (Negative); Need Manual Microscopic Reviewed; Nitrate Urine Negative (Negative); Specific Grav Ur 1.023 (1.001-1.035)
== END 2024-12-25 09:36 | disposition home or self-care (01) ==
PROVIDERS: PCP Family Medicine; Visit Provider Nurse Practitioner Family
DX: N39.0 Urinary tract infection, site not specified (principal)
CPT/HCPCS: 81001; 87086

== ENCOUNTER 2025-01-06 12:22 | Outpatient (CLI) | payer MEDICARE, SELFPAY ==
--- NOTE | ~2025-01-06 | XR_ITS ---
Left foot Technique: AP, oblique, and lateral views were obtained. Clinical History: Pain Findings: No acute fracture or dislocation is seen. There is hallux valgus with minimal degenerative change at the first MTP joint. Soft tissues are unremarkable. Impression: Hallux valgus. Reviewed, dictated and finalized at location . Impression: Hallux valgus.
--- OUTSIDE RECORDS SUMMARY | 2025-01-06 12:26 | XMS_ITS | Encounter Summary ---
Author Organization [facility] Address [address] [place] [address] Phone Care Team Providers Care Bus Escort Name Role Phone Raphael Burch MD Primary Care Provider Brandon Leal MD Primary Care Provider Reason for Visit * Reason Comments Medication Refill Encounter Details Date Type Department Care Team (Late st Contact Info) Description 05/07/2020 Refill [facility] - Internal Medicine - [place] [address] [place] [address] Raphael Burch MD [address] [facility] [place] [address] Medication Refill Social History Tobacco Use Types [...] 8:51 AM CST Please review and sign. AL MERCHANDISING ASSISTANT documented in this encounter Plan of Treatment Not on file documented as of this encounter Visit Diagnoses Not on filedocumented in this encounter Care Teams Bus Escort Relationship Specialty Start Date End Date Raphael Burch MD [address] [address] PCP - General Internal Medicine 06/29/18 03/06/22 Brandon Leal MD [address] [place] [address] PCP - General Family Medicine 08/03/22 documented as of this encounter
--- OUTSIDE RECORDS SUMMARY | 2025-01-06 12:26 | XMS_ITS | Encounter Summary ---
Author Organization [facility] Address [address] [place] [address] Phone Care Team Providers Care Print Production Manager Name Role Phone Raphael Burch MD Primary Care Provider Brandon Leal MD Primary Care Provider Reason for Visit * Reason Comments Medication Refill Encounter Details Date Type Department Care Team (Late st Contact Info) Description 10/14/2020 Refill [facility] - Internal Medicine - [place] [address] [place] [address] Raphael Burch MD [address] [facility] [place] [address] Medication Refill Social History Tobacco [...] Total Score: 0 07/17/19 21 11:00 AM PROCESS ASSISTANT documented as of this encounter Care Teams Print Production Manager Relationship Specialty Start Date End Date Raphael Burch MD [address] [place] [address] [place] [address] PCP - General Internal Medicine 06/29/18 03/06/22 Brandon Leal MD [address] [place] [address] PCP - General Family Medicine 08/03/22 documented as of this encounter
--- OUTSIDE RECORDS SUMMARY | 2025-01-06 12:26 | XMS_ITS | Referral Summary ---
Author Organization [facility] Address [address] [place] [address] Care Team Providers Care Men'S Garment Fitter Name Role Phone Brandon Leal MD Primary Care Provider [phone] Farzana Christina PT Unavailable Unavailable Encounters Date Type Department Care Team Description 12/28/2024 3:30 PM CDT Office Visit [facility] Medical Group [facility] at [place] [address] [place] [phone] Kiersten Bingham NP Thrush, oral (Primary Dx) 12/16/2024 12:26 PM CDT - 12/16/2024 1:53 PM CDT Emergency [facility] Emergency Department 1 [place] [address] Right wrist pain (Primary Dx) Discharge Disposition: Discharge to home or self care 10/25/2024 8:45 AM CDT Office Visit [facility] Medical [facility] at [place] [address] [place] [address] Ana Rosa Becker NP Thrush, oral (Primary [...] total) by mouth daily 90 capsule 1 06/15/19 22 Active Additional Information Patient not taking.Reported on 12/28/2024 quinapriL (ACCUPRIL) 40 mg tablet Take 1 tablet (40 mg total) by mouth 2 (two) times a day 180 tablet 3 07/20/19 22 Active Additional Information Patient not taking.Reported on 12/28/2024 carvediloL (COREG) 6.25 mg tablet Take 1 tablet (6.25 mg total) by mouth 2 (two) times a day with meals 180 tablet 10/09/19 22 Active Additional Information Patient not taking.Reported on 12/28/2024 hydroCHLOROthiazid e (HYDRODIURIL) 25 mg tablet Take 1 tablet (25 mg total) by mouth daily 30 tablet 5 10/27/19 22 Active NIFEdipine CC 60 mg 24 hr tablet TAKE 1 TABLET BY MOUTH 2 TIMES A DAY. 180 tablet 01/22/20 22 Active Additional Information Patient not taking.Reported on 12/28/2024 atorvastatin (LIPITOR) 10 mg tablet TAKE 1 TABLET BY MOUTH EVERY DAY 90 tablet 1 03/16/20 22 Active ondansetron ODT (ZOFRAN-ODT) 4 mg disintegrating tablet Take 2 tablets (8 mg total) by mouth every 8 (eight) hours as needed for nausea or vomiting Take 4 or 8 mg ( 1 or 2 tabs) q.8 hours PRN 40 tablet 12/15/19 23 Active Additional Information Patient not taking.Reported on 12/28/2024 naproxen (NAPROSYN) 500 mg tablet Take 1 tablet (500 mg total) by mouth 2 (two) times a day with meals 30 tablet 12/17/19 25 Active Additional Information Patient not taking.Reported on 12/28/2024 lisinopril, bulk, 100 % powder Take by mouth Act ilda nystatin 100,000 unit/mL suspensionIndicati ons:Thrush, oral Take 5 mL (500,000 Units total) by mouth 4 (four) times a day for 14 days Swish in mouth and swallow. 280 mL 12/29/19 25 025 Active nystatin 100,000 unit/mL suspensionIndicati ons:Thrush, oral Take 5 mL (500,000 Units total) by mouth 4 (four) times a day Swish in mouth and swallow. 280 mL 10/26/19 25 025 cephalexin (KEFLEX) 500 mg capsuleIndications :Urinary Tract/Genitourinar y Infection Take 1 capsule (500 mg total) by mouth 2 (two) times a day for 7 days 14 capsule 12/17/19 25 025 Active Problems Problem Noted Date Diagnosed Date Food bolus obstruction of intestine 07/02/2024 Bilateral leg edema 10/26/2020 Assessment & Plan (10/26/2020 9:06 AM CDT): Has pitting edema in both legs, as well as some sense of loss of sensation in both feet Will start furosemide 20 daily at this time, continue to monitor Dysthymia 10/26/2020 Assessment & Plan (06/15/2021 9:44 AM CHIMNEY BUILDER HELPER): Well controlled, patient reports her mood is [...] education materials about warm handoff program at [facility] for provide to daughter and granddaughter as [...] 05/2021 Assessment & Plan (06/15/2021 9:45 AM CHIMNEY BUILDER HELPER): Right worse than left, patient has some [...] care Assessment & Plan (07/27/2021 9:13 PM CHIMNEY BUILDER HELPER): Not well controlled; patient has multiple stressors; [...] REFLUX Assessment & Plan (06/15/2021 9:44 AM CHIMNEY BUILDER HELPER): Not well controlled, patient reports worsening symptoms [...] travel Assessment & Plan (07/27/2021 9:13 PM CHIMNEY BUILDER HELPER): Not well controlled; patient has multiple stressors; including daughter with substance use disorder, and caring for grandchildren. Will add Nifedipine 60 mg daily Refer patient to counseling Continue quinapril 40 mg bid Discontinue propranolol as no benefit Assessment & Plan (06/15/2021 9:43 AM CHIMNEY BUILDER HELPER): Stable, well controlled; blood pressure is at [...] daily Assessment & Plan (06/15/2021 9:43 AM CHIMNEY BUILDER HELPER): Stable, well controlled; total and LDL cholesterol [...] on file Legal Sex Female 2:08 PM CHIMNEY BUILDER HELPER Gender Identity Not on file Sexual Orientation Not on file Last Filed Vital Signs Vital Sign Reading Time Taken Comments Blood Pressure 156/62 12/28/2024 3:28 PM CDT Pulse 56 12/28/2024 3:28 PM CDT Temperature 37 C (98.6 F) 12/28/2024 3:28 PM CDT Respiratory Rate 18 12/28/2024 3:28 PM CDT Oxygen Saturation 96% 12/28/2024 3:28 PM CDT Inhaled Oxygen Concentration - - Weight 60.9 kg (134 lb 3.2 oz) 12/28/2024 3:28 P M CDT Height 152.4 cm (5') 12/16/2024 12:17 PM CDT Body Mass Index 26.21 12/16/2024 12:17 PM CDT Plan of Treatment [...] tendency for uric acid stone formation. Source: [facility] [employer] Current Interpretive Data was last revised on 2017 Protein, ur ql Negative Negative [facility] R [facility] (BHUMIKA) Glucose, ur ql 4+(A) Negative [facility] (BHUMIKA) Ketones, ur Negative Negative CERNER A [facility] (BHUMIKA) Bilirubin, ur Negative Negative [facility] (BHUMIKA) Blood, ur Trace(A) Negative [facility] (BHUMIKA) Urobilinogen, ur <2.0 <2.0 mg/dL [facility] (BHUMIKA) Nitrite, ur Negative Negative CERNER A (BHUMIKA) Leukocyte esterase, ur 4+(A) Negative [facility] (BHUMIKA) UA reflex comment Reflex to microscopic UA will be performed. [facility] (BHUMIKA) Urine 12/16/2024 1:49 PM CDT 12/16/2024 1:54 PM CDT Lin Braun NP LAB MICROBIOLOGY - GENERAL OR DERABLES Final Result [facility] (BHUMIKA) 1 [facility] Department of Laboratories [place], [place] [id number] * (ABNORMAL) Urinalysis, microscopic only (12/16/2024 1:49 PM CDT) WBC, ur >50(A) 0 - 5 /HPF RBC, ur 6-10(A) 0 - 2 /HPF [facility] (BHUMIKA) Epithelial cells, squamous, ur 11-20(A) 0 - 5 /HPF [facility] (BHUMIKA) Bacteria, ur 1+(A) [facility] (BHUMIKA) Mucous, ur Present(A) CERNER A (BHUMIKA) Culture Reflex Comment Reflex to urine culture will be performed. [facility] (BHUMIKA) Urine 12/16/2024 1:49 PM CDT 12/16/2024 1:54 PM CDT Lin Braun AMUSEMENT PARK RIDE MECHANIC LAB URINE ORDERABLES Final Re sult Performing Organization Address [facility]/ZIP Co de Phone Number [facility] (BHUMIKA) 1 [facility] [employer] [address] * Urine culture Urine (12/16/2024 1:49 PM CDT) Report Final Report: Less than 100,000 colonies/mL (clinically insignificant growth based on current clinical standards) Comment:Testing performed by : [facility], [address] [place]., [address] Organism (CLINICALLY INSIGNIFICANT GROWTH [facility] (BHUMIKA) Urine 12/16/2024 1:49 PM CDT 12/16/2024 4:24 PM CDT Narrative [facility] (BHUMIKA) - 12/18/2024 7:38 AM CDT Urine culture reflexed based upon urinalysis results. Testing performed by [facility] Microbiology Laboratory ([phone]) Lin Braun NP LAB MICROBIOLOGY - GENERAL OR DERABLES Final Result Performing Organization Address [facility]/ZIP Co de Phone Number TW[facility]A [facility] (BHUMIKA) 1 [facility] [place] [address] * XR Hand Right 3 or More [...] Ivana Lynne D.O. PS: PS Report ID: [id number] Reading Location: [id number] Procedure Note Ivana Lynne, DO - 12/16/2024 [...] Ivana Lynne D.O. PS: PS Report ID: [id number] Reading Location: [place] [address] Lin Braun NP IMHarshal XR PROCEDURES Final Resul t * XR [...] Ivana Lynne D.O. PS: PS Report ID: [id number] Reading Location: [id number] Procedure Note Ivnaa Lynne DO - 12/16/2024 EXAM DESCRIPTION: XR RADIUS [...] Ivana Lynne D.O. PS: PS Report ID: [id number] Reading Location: [place] [address] Lin Braun NP IMG XR PROCEDURES Final Resul t from Last 3 Months Insurance [facility] MEDICARE [facility] MEDICARE [facility] MEDICARE Care Teams Men'S Garment Fitter Relationship Specialty Start Date End Date Brandon Leal MD PCP - General Family Practice 02/15/22 Farzana Christina PT Physical Therapist Physical Therapy 03/18/22
--- OUTSIDE RECORDS SUMMARY | 2025-01-06 12:26 | XMS_ITS | Clinical Summary ---
Author Organization [facility] Address 1 [place] [address] Care Team Providers Care Residential Real Estate Sales Manager Name Role Phone Brandon Leal MD Primary Care Provider [phone] [phone] Farzana Christina PT Unavailable Unavailable Allergies No [...] a day with meals 180 tablet 10/09/19 Active Additional Information Patient not taking.Reported on [...] 10/26/2020 Assessment & Plan (06/15/2021 9:44 AM DEFECTIVE CIGARETTE SLITTER): Well controlled, patient reports her mood is [...] education materials about warm handoff program at [facility] for provide to daughter and granddaughter as [...] 05/2021 Assessment & Plan (06/15/2021 9:45 AM DEFECTIVE CIGARETTE SLITTER): Right worse than left, patient has some [...] care Assessment & Plan (07/27/2021 9:13 PM DEFECTIVE CIGARETTE SLITTER): Not well controlled; patient has multiple stressors; [...] REFLUX Assessment & Plan (06/15/2021 9:44 AM DEFECTIVE CIGARETTE SLITTER): Not well controlled, patient reports worsening symptoms [...] travel Assessment & Plan (07/27/2021 9:13 PM DEFECTIVE CIGARETTE SLITTER): Not well controlled; patient has multiple stressors; including daughter with substance use disorder, and caring for grandchildren. Will add Nifedipine 60 mg daily Refer patient to counseling Continue quinapril 40 mg bid Discontinue propranolol as no benefit Assessment & Plan (06/15/2021 9:43 AM DEFECTIVE CIGARETTE SLITTER): Stable, well controlled; blood pressure is at [...] daily Assessment & Plan (06/15/2021 9:43 AM DEFECTIVE CIGARETTE SLITTER): Stable, well controlled; total and LDL cholesterol at target Continue atorvastatin 10 mg Assessment & Plan (12/29/2020 10:58 AM CDT): Stable, most recent lipid panel was normal Will continue atorvastatin 10 mg daily Encounters Date Type Department Care Team Description 12/28/2024 3:30 PM CDT Office Visit [facility] Convenient Care at [address] [place] [address] Kiersten Bingham, [place] Thrush, oral (Primary Dx) 12/16/2024 12:26 PM CDT - 12/16/2024 1:53 PM CDT Emergency [facility] Emergency Department 1 [place] [address] Right wrist pain (Primary Dx) Discharge Disposition: Discharge to home or self care 10/25/2024 8:45 AM CDT Office Visit [facility] Convenient Care at [address] [place] [address] Ana Rosa Becker NP Thrush, oral (Primary [...] Name Comments Coronary artery disease Brother Allen franklin artery disease; Coronary artery disease Mother Allen franklin artery disease; Depression Mother Depression; Heart disease [...] on file Legal Sex Female 2:08 PM DEFECTIVE CIGARETTE SLITTER Gender Identity Not on file Sexual Orientation [...] ur Straw Yellow Clarity, ur Turbid(A) Clear [facility] (BHUMIKA) Specific gravity, ur 1.012 1.003 - 1.030 [facility] (BHUMIKA) pH, urine 5.5 [facility] (BHUMIKA) Comment: Interpretive Data U rine pH is affected by diet, medications, systemic acid-base disturbances, and renal tubular function. pH may affect urinary stone formation. For example, urine pH below 6.0 may help reduce the tendency for calcium phosphate stones and pH greater than 6.0 may reduce the tendency for uric acid stone formation. Source: [facility] Current Interpretive Data was last revised on [...] 1:49 PM CDT 12/16/2024 1:54 PM CDT us Lin Braun NP LAB MICROBIOLOGY - GENERAL OR DERABLES Final Result Performing Organization Address [facility] Co de Phone Number TWILA WOLF (BHUMIKA) 1 [facility] Department [place] [address] * (ABNORMAL) Urinalysis, microscopic only (12/16/2024 1:49 [...] 1:49 PM CDT 12/16/2024 1:54 PM CDT us Lin Braun NP LAB URINE ORDERABLES Final Re sult Performing Organization Address [facility] Co de Phone Number TWILA WOLF (BHUMIKA) 1 [facility] Department [place] [address] * Urine culture Urine (12/16/2024 1:49 PM CDT) Report Final Report: Less than 100,000 colonies/mL (clinically insignificant growth based on current clinical standards) Comment:Testing performed by : [facility], [address] [facility] [place] [address] Organism (CLINICALLY INSIGNIFICANT GROWTH TWILA WOLF (BHUMIKA) Urine 12/16/2024 1:49 PM CDT 12/16/2024 4:24 PM CDT Narrative TW[facility]A WOL[facility] (BHUMIKA) - 12/18/2024 7:38 AM CDT Urine culture reflexed based upon urinalysis results. Testing performed by [facility] Microbiology Laboratory ([phone]) Lin Braun NP LAB MICROBIOLOGY - GENERAL OR DERABLES Final Result [facility] (BHUMIKA) 1 [facility] Department [place] [address] * XR Hand Right 3 or More [...] Ivana Lynne D.O. PS: PS Report ID: [id number] Reading Location: [id number] Procedure Note Ivana Lynne, DO - 12/16/2024 [...] Ivana Lynne D.O. PS: PS Report ID: [id number] Reading Location: [id number] Lin Braun DRUM SPRAYER IMG XR PROCEDURES Final Resul t * [...] Ivana Lynne D.O. PS: PS Report ID: [id number] Reading Location: [id number] Procedure Note Ivana Lynne, DO - 12/16/2024 [...] Ivana Lynne D.O. PS: PS Report ID: [id number] Reading Location: [place] [address] Lin Braun NP IMG XR PROCEDURES Final Resul t from Last 3 Months Insurance [employer] MEDICARE [facility] MEDICARE [facility] MEDIC[facility] Address: [address] [address] [place] [address] AET MEDICARE [facility] MEDICARE Care Teams Residential Real Estate Sales Manager Relationship Specialty Start Date End Date Brandon Leal MD PCP - General Family Practice 02/15/22 Cobbel, Farzana, PT Physical Therapist Physical Therapy 03/18/22
--- OUTSIDE RECORDS SUMMARY | 2025-01-06 12:26 | XMS_ITS | Clinical Summary ---
Author Organization [facility] [address] [address] Address [address] [place] [address] Care Team Providers Care Art Framing Manager Name Role Phone Brandon Leal MD Primary Care Provider [phone] Allergies No known active allergies Medications Multiple [...] Comments Blood Pressure 143/85 07/02/2024 3:45 PM EMERGENCY ROOM SPECIALIST Pulse 99 07/02/2024 3:45 PM EMERGENCY ROOM SPECIALIST Temperature 36 C (96.8 F) 07/02/2024 3:45 PM EMERGENCY ROOM SPECIALIST Respiratory Rate 12 07/02/2024 3:45 PM EMERGENCY ROOM SPECIALIST Oxygen Saturation 100% 07/02/2024 3:45 PM EMERGENCY ROOM SPECIALIST Inhaled Oxygen Concentration - - Weight 61.7 kg (136 lb) 07/02/2024 1:34 PM EMERGENCY ROOM SPECIALIST Height 162.6 cm (5' 4) 07/02/2024 1:34 PM EMERGENCY ROOM SPECIALIST Body Mass Index 23.34 07/02/2024 1:34 PM EMERGENCY ROOM SPECIALIST Plan of Treatment Health Maintenance Due [...] topic Insurance MEDICARE C AETNA Care Teams Art Framing Manager Relationship Specialty Start Date End Date Brandon Leal MD [address] [place] [address] PCP - General Family Medicine 08/03/22
== END 2025-01-06 12:23 | disposition home or self-care (01) ==
PROVIDERS: PCP Family Medicine; Visit Provider Orthopaedic Surgery
DX: M20.12 Hallux valgus (acquired), left foot (principal)
CPT/HCPCS: 73630

== ENCOUNTER 2025-01-27 09:21 | Outpatient (CLI) | payer MEDICARE, SELFPAY ==
--- OUTSIDE RECORDS SUMMARY | 2009-11-23 08:45 | XMS_ITS | Continuity of Care Document ---
Author Organization [facility] Address [address] [place] [address] [place] [address] Phone Care Team Providers Care Welder Fitter Arc Name Role Phone Karthikeyan Meadows Unavailable Unavailable Procedures Procedure Date Office/outpatient Visit, Est Eye Exam Established Pt Office/outpatient Visit, Est Script Printed/Phoned Pt Requ Or Pharm N ot Availab Office/outpatient Visit, Est Script Printed/Phoned Pt Requ Or Pharm N ot Availab Office/outpatient Visit, Est Office/outpatient Visit, New Advance Directives Directive Yes / No Effective Date File Name No Information Encounters Encounter Description Practice Location Reason(s) For Visit Diagnoses Date Provider Providers Copied on Encounter Office/outpat ient Visit, [facility], [address] [place] [address] [address], [place], [place], [id number], tel:[phone] [facility] No Information 1-201 0 Doisy Edjulia. [address] [facility] [facility] , [address], [place], [address], [place]. tel:[phone] [facility], [address], [place], [place], [id number], [place] tel:[phone] SEC [facility] No Information 2-201 0 Doisy Edjulia. [address], [address], [place], [address], [place]. tel:[phone] Office/outpat ient Visit, [facility] Eye [facility], [address], [place], [place], [id number], [place] tel:[phone] [facility] No Information May-1 4-200 9 Dori Napier. Formerly [facility] , [address], [place], [place], [facility][note 2], . tel:[phone] Office/outpat ient Visit, [facility] Eye [facility], [address] [place] [address] [address], [place], [place], [id number], [place] tel:[phone] [facility] No Information Apr-2 5-200 9 Dori Napeir. [address] [place] [address] , [address], [place], [place], [facility][note 2], . tel:[phone] Office/outpat ient Visit, [facility], [address] [place] [address] [address], [place], [place], [address], [place] tel:[phone] [facility] No Information Apr-2 0-200 9 Dori Napier. [address] [place] [address] , [address], [place], [place], [facility][note 2], . tel:[phone] Office/outpat ient Visit, [facility], [address] [place] [address] [address], [place], [place], [id number], tel:[phone] [facility] No Information Nov-0 9-200 9 Krishnasamy Yevgeniy. [address] [place], [place] [address], [place], [place], [facility][note 2], . tel:[phone] Family History Family Member Type Diagnosis Age At Onset No Information Payers Payer name Insurance type Covered green party ID Authoriza tilee(s) [place] [id number] [facility]ly [facility] [id number] Social History Type Description Quantity Date Captured Comments Sex Female Smoking Status No Information Chief Complaint And Reason For Visit No Information Reason For Referral Reason For Referral No Information History Of Present Illness Encounter Date Complaint History Of Prese nt Illness No Information Functional Status Date Functional Assessmen t No Information Instructions Date Instruction Additional Infor mation No Information Assessments Type Assessment Date No Information Patient Care Teams Name Effective Dates (start - stop) Status Members No Information
--- NOTE | 2025-01-27 09:49 | ECG_ITS ---
Test Date: 2025-01-27 10:07:15 Measurements Intervals [place] Rate: 79 P: 0 CT: 0 QRS: -53 QRSD: 121 T: 43 QT: 405 QTc: 466 Interpretive Statements SINUS RHYTHM WITH FIRST DEGREE AV BLOCK RIGHT BUNDLE BRANCH BLOCK LEFT ANTERIOR FASCICULAR BLOCK LEFT VENTRICULAR HYPERTROPHY BASELINE ARTIFACT- I, II AVR, AVL, AVF, V1-V5 ABNORMAL ECG No previous ECG available for comparison Electronically Signed On 01-27-2025 10:31:26 CDT by Rico Moraes D.O.
--- OUTSIDE RECORDS SUMMARY | 2025-01-27 10:01 | XMS_ITS | Encounter Summary ---
Author Organization [facility] Address [address] [place] [address] Phone Care Team Providers Care Can Sterilizer Name Role Phone Raphael Burch MD Primary Care Provider Brandon Leal MD Primary Care Provider Reason for Visit * Reason Comments Medication Refill Encounter Details Date Type Department Care Team (Late st Contact Info) Description 05/07/2020 Refill [facility] - Internal Medicine - [place] [address] [place] [address] Raphael Burch MD [address] [place] [address] Medication Refill Social History Tobacco Use Types [...] 8:51 AM CST Please review and sign. APPER documented in this encounter Plan of Treatment Not on file documented as of this encounter Visit Diagnoses Not on filedocumented in this encounter Care Teams Can Sterilizer Relationship Specialty Start Date End Date Raphael Burch MD PCP - General Internal Medicine 06/29/18 03/06/22 Brandon Leal MD PCP - General Family Medicine 08/03/22 documented as of this encounter
--- OUTSIDE RECORDS SUMMARY | 2025-01-27 10:01 | XMS_ITS | Clinical Summary ---
Author Organization [facility] [address] [address] Address [address] [place] [address] Care Team Providers Care Site Controller Name Role Phone Brnadon Leal MD Primary Care Provider [phone] Allergies No known active allergies Medications Multiple [...] Comments Blood Pressure 143/85 07/02/2024 3:45 PM CIRCUS PERFORMER Pulse 99 07/02/2024 3:45 PM CIRCUS PERFORMER Temperature 36 C (96.8 F) 07/02/2024 3:45 PM CIRCUS PERFORMER Respiratory Rate 12 07/02/2024 3:45 PM CIRCUS PERFORMER Oxygen Saturation 100% 07/02/2024 3:45 PM CIRCUS PERFORMER Inhaled Oxygen Concentration - - Weight 61.7 kg (136 lb) 07/02/2024 1:34 PM CIRCUS PERFORMER Height 162.6 cm (5' 4) 07/02/2024 1:34 PM CIRCUS PERFORMER Body Mass Index 23.34 07/02/2024 1:34 PM CIRCUS PERFORMER Plan of Treatment Health Maintenance Due Date [...] topic Insurance MEDICARE C AETNA Care Teams Site Controller Relationship Specialty Start Date End Date Brandon Leal MD PCP - General Family Medicine 08/03/22
--- OUTSIDE RECORDS SUMMARY | 2025-01-27 10:01 | XMS_ITS | Clinical Summary ---
Author Organization [facility] Address [address] [place] [address] Care Team Providers Care Knit Goods Cutter Hand Name Role Phone Brandon Leal MD Primary Care Provider [phone] Farzana Christina PT Unavailable Unavailable Allergies No [...] swallow. 280 mL 12/29/19 25 025 Active Problems Problem Noted Date Diagnosed Date Food bolus obstruction of intestine 07/02/2024 Bilateral leg edema 10/26/2020 Assessment & Plan (10/26/2020 9:06 AM CDT): Has pitting edema in both legs, as well as some sense of loss of sensation in both feet Will start furosemide 20 daily at this time, continue to monitor Dysthymia 10/26/2020 Assessment & Plan (06/15/2021 9:44 AM LEADLIGHTER): Well controlled, patient reports her mood is [...] 05/2021 Assessment & Plan (06/15/2021 9:45 AM LEADLIGHTER): Right worse than left, patient has some [...] care Assessment & Plan (07/27/2021 9:13 PM LEADLIGHTER): Not well controlled; patient has multiple stressors; [...] REFLUX Assessment & Plan (06/15/2021 9:44 AM LEADLIGHTER): Not well controlled, patient reports worsening symptoms [...] travel Assessment & Plan (07/27/2021 9:13 PM LEADLIGHTER): Not well controlled; patient has multiple stressors; including daughter with substance use disorder, and caring for grandchildren. Will add Nifedipine 60 mg daily Refer patient to counseling Continue quinapril 40 mg bid Discontinue propranolol as no benefit Assessment & Plan (06/15/2021 9:43 AM LEADLIGHTER): Stable, well controlled; blood pressure is at [...] daily Assessment & Plan (06/15/2021 9:43 AM LEADLIGHTER): Stable, well controlled; total and LDL cholesterol at target Continue atorvastatin 10 mg Assessment & Plan (12/29/2020 10:58 AM CDT): Stable, most recent lipid panel was normal Will continue atorvastatin 10 mg daily Encounters Date Type Department Care Team Description 12/28/2024 3:30 PM CDT Office Visit [facility] [place] [address] [place] [address] Kiersten Bingham NP Thrush, oral (Primary Dx) 12/16/2024 12:26 PM CDT - 12/16/2024 1:53 PM CDT Emergency [facility] Emergency Department [address] [place] [address] Right wrist pain (Primary Dx) Discharge Disposition: Discharge to home or self care from Last 3 Months Immunizations Immunization Administration [...] on file Legal Sex Female 2:08 PM LEADLIGHTER Gender Identity Not on file Sexual Orientation [...] tendency for uric acid stone formation. Source: [facility] Current Interpretive Data was last revised on [...] DERABLES Final Result [facility] (BHUMIKA) 1 [facility] Department [place] [address] * (ABNORMAL) Urinalysis, microscopic only (12/16/2024 1:49 PM CDT) WBC, ur >50(A) 0 - 5 /HPF RBC, ur 6-10(A) 0 - 2 /HPF [facility] ([facility]UM[facility]) Epithelial cells, squamous, ur 11-20(A) 0 - 5 /HPF [facility] ([facility]) Bacteria, ur 1+(A) [facility] ([facility]) Mucous, ur Present(A) [facility] (BHUMIKA) Culture Reflex Comment Reflex to urine culture will be performed. [facility] (BHUMIKA) Urine 12/16/2024 1:49 PM CDT 12/16/2024 1:54 PM CDT us Lin Braun NP LAB URINE ORDERABLES Final Re sult [facility] (BHUMIKA) 1 [facility] [place] [address] * Urine culture Urine (12/16/2024 1:49 PM CDT) Report Final Report: Less than 100,000 colonies/mL (clinically insignificant growth based on current clinical standards) Comment:Testing performed by : [facility], 1 [facility], [place]., [address] Organism (CLINICALLY INSIGNIFICANT GROWTH [facility] (BHUM[facility]A) Urine 12/16/2024 1:49 PM CDT 12/16/2024 4:24 PM CDT Narrative [facility] (BHUMIKA) - 12/18/2024 7:38 AM CDT Urine culture reflexed based upon urinalysis results. Testing performed by [facility] Laboratory ([phone]) Lin Braun NP LAB MICROBIOLOGY - GENERAL OR DERABLES Final Result [facility] BHUMIKA 1 [facility] Department [place] [address] * XR Hand Right 3 or More [...] Ivana Lynne D.O. PS: PS Report ID: [id number] Reading Location: [id number] Procedure Note Ivana Lynne, DO - 12/16/2024 [...] Ivana Lynne D.O. PS: PS Report ID: [id number] Reading Location: [place] [address] Lin Braun NP IMG XR PROCEDURES Final [...] Ivana Lynne D.O. PS: PS Report ID: [id number] Reading Location: [id number] Procedure Note Ivana Lynne, DO - 12/16/2024 [...] Ivana Lynne D.O. PS: PS Report ID: [id number] Reading Location: [place] [address] Lin Braun TELECOMMUNICATIONS FIELD ENGINEER IMG XR PROCEDURES Final Resul t from Last 3 Months Insurance [facility] MEDICARE ADVANTAGE [facility] MEDICARE T MEDICARE Care Teams Knit Goods Cutter Hand Relationship Specialty Start Date End Date Brandon Leal MD PCP - General Family Practice 02/15/22 Farzana Christina PT Physical Therapist Physical Therapy 03/18/22
--- OUTSIDE RECORDS SUMMARY | 2025-01-27 10:01 | XMS_ITS | Encounter Summary ---
Author Organization [facility] Address [address] [place] [address] Phone Care Team Providers Care National Business Director Name Role Phone Raphael Burch MD Primary Care Provider Brandon Leal MD Primary Care Provider Reason for Visit * Reason Comments Medication Refill Encounter Details Date Type Department Care Team (Late st Contact Info) Description 10/14/2020 Refill [facility] - [facility] - [place] [address] [address] Raphael Burch MD [address] [place] [address] Medication Refill Social History Tobacco Use Types [...] Total Score: 0 07/17/19 21 11:00 AM SHAFTING CLEANER documented as of this encounter Care Teams National Business Director Relationship Specialty Start Date End Date Raphael Burch MD PCP - General Internal Medicine 06/29/18 03/06/22 Brandon Leal MD PCP - General Family Medicine 08/03/22 documented as of this encounter
[2025-01-27 10:26] LABS: Anion Gap 11 mmol/L (4-12); Blood Urea Nitrogen 39 mg/dL (7-17); Calcium 9.9 mg/dL (8.4-10.2); Carbon Dioxide 19 mmol/L (22-30); Chloride 109 mmol/L (98-107); Estimated Glomerular Filt Rate 57; Glucose 116 mg/dL (65-110); Potassium 4.5 mmol/L (3.4-5.0); Sodium 139 mmol/L (137-145)
[2025-01-27 10:31] LABS: INR 1.0; Prothrombin Time 13.7 Seconds (11.1-14.7)
[2025-01-27 10:32] LABS: Partial Thromboplastin Time 25.4 Seconds (22.3-36.8)
== END 2025-01-27 09:22 | disposition home or self-care (01) ==
LOC: ANHSURGERY 09:26
PROVIDERS: Anesthesiology; PCP Family Medicine; Visit Provider Urology
DX: E78.5 Hyperlipidemia, unspecified (principal); E11.9 Type 2 diabetes mellitus without complications; I12.9 Hypertensive chronic kidney disease with stage 1 through stage 4 chronic kidney disease, or unspecified chronic kidney disease; N18.9 Chronic kidney disease, unspecified
CPT/HCPCS: 36415; 80048; 85610; 85730; 87086; 93005

== ENCOUNTER 2025-02-07 02:09 | Day surgery (SDC) | payer MEDICARE, SELFPAY ==
--- OUTSIDE RECORDS SUMMARY | 2009-11-23 08:45 | XMS_ITS | Continuity of Care Document ---
Author Organization [facility] Address [address] [place] [address] [place] [address] Phone Care Team Providers Care Night Coordinator Name Role Phone Karthikeyan Meadows Unavailable Unavailable [...] Copied on Encounter Office/outpat ient Visit, Est [facility], [address] [place] [address] [address], [place], [place], [id number], tel:[phone] [facility] No Information 1-201 0 Doisy Edjulia. [address] [facility] , [address], [place], [address], [place]. tel:[phone] [facility], [address], [place], [place], [address], [place] tel:[phone] SEC [facility] No Information 2-201 0 Doisy Edjulia. [address], [address], [place], [address], [place]. tel:[phone] Office/outpat ient Visit, [facility] Eye [facility], [address], [place], [place], [address], [place] tel:[phone] [facility] No Information May-1 4-200 9 Dori Napier. [facility] , [address], [place], [place], [facility], . tel:[phone] Office/outpat ient Visit, [facility] Eye [facility], [address] [place] [address] [address], [place], [place], [id number], [place] tel:[phone] [facility] No Information Apr-2 5-200 9 Dori Napier. [address] [place] [address] , [address], [place], [place], [facility], . tel:[phone] Office/outpat ient Visit, [facility], [address] [place] [address] [address], [place], [place], [id number], [place] tel:[phone] [facility] No Information Apr-2 0-200 9 Dori Napier. [address] [place] [address] , [address], [place], [place], [facility], . tel:[phone] Office/outpat ient Visit, [facility], [address] [place] [address] [address], [place], [place], [address], tel:[phone] [facility] No Information Nov-0 9-200 9 Krishnasamy Yevgeniy. [address] [place], [place] [address], [place], [place], [facility], . tel:[phone] Family History Family Member Type Diagnosis Age At Onset No Information Payers Payer name Insurance type Covered republican ID Authoriza tilee(s) [place] [id number] [facility] [id number] Social History Type Description Quantity Date Captured [...]
[2025-01-24 09:22] VITALS: BMI 24.3
--- NOTE | 2025-01-24 09:39 | PC.NURSE ---
Report to the Outpatient Waiting Room, entrance under the green pavilion located off [facility], at time __06:00am on date _02/07/25 . Planned Procedure Time: __07:30am .? Time changes happen often and if your time is changed the preop area will call you the afternoon before. - You and your visitor will be asked to self-screen and do not enter if you have any COVID symptoms. Please call surgeon if you need to reschedule. - A mask is optional within the hospital at this time. Patients may have clear liquids (water, carbonated beverages, clear teas, apple juice) until 3 hours prior to surgery with a maximum of 20 ounces. - No food from midnight until time of surgery and no smoking, or chewing tobacco (or any form of nicotine). No chewing gum, candy or mints. ( 0430am) Take only the following medications with a SIP of water on the morning of surgery: ____NONE DO NOT STOP ANY OF YOUR OTHER PRESCRIPTION MEDICATIONS PRIOR TO SURGERY EXCEPT THE FOLLOWING Hold all vitamins and supplements for 3 days per anesthesiologist. Medications to discontinue per physician NONE Date to take last dose NONE Please no make-up, nail citizen of [place], hairspray, perfume, deodorant, or body powder the day of surgery.? No jewelry (including any body piercings) or valuables the day of surgery, leave them at home.? Please take a shower or bath the night before, or the morning of, surgery with an antibacterial soap.? Wear comfortable, loose fitting clothing.? - Jewelry must be removed prior to entering the operating room.? Rings and piercings that are not removed may be cut off. - The hospital will not accept responsibility for valuables.? - Please leave all valuables, including medications, at home the day of surgery. If you are going home after surgery, a licensed driver material handler must drive you home.? - NO public transportation without another adult if you receive anesthesia. - We recommend that an adult stay with you for 24 hours following discharge. - We also recommend that you do not drive, make important decision, drink alcoholic beverages, or take any drugs that were not prescribed by your health care provider for at least 24 hours after your discharge time. Follow any additional instructions given to you from your surgeon. Telephone instructions given to ___Patient and asked if any additional questions and then verbalized understanding. Patient advised to call surgeon office or pre surgery nurse liaison [phone] if any additional questions.
--- NOTE | 2025-02-01 13:21 | PM.IMHP ---
H&P: HPI History of Present Illness Date/Time: 02/01/25 13:21 Chief Complaint: POP/ISD Narrative: symptomatic POP and ISD. Previous SCP Review of Systems Review of Systems: All systems reviewed & are unremarkable except as noted in HPI and below PMFSH Past Medical History Medical History (Updated 02/01/25 @ 13:22 by Jimenez Aldana MD) Acquired claw toe of left foot Anxiety Hyperlipidemia HTN (hypertension) Surgical History Surgical History History of ear surgery History of cholecystectomy Family History Family History Father Depression Mother Hypertension Sibling Hypertension Social History Social History Smoking status: Never smoker Second hand tobacco smoke exposure: No Alcohol intake: never Substance use: never Lack of Transportation: No Lack of Food: Never True Current Housing: I Have Housing Concerned About Future Housing: No Difficulty Paying Gas/Electric Bills: No Difficulty Paying for Meds: No Currently Unemployed: No Education: High School Diploma/GED Difficulty w/ Childcare or Family Care: No Living arrangements: alone Spiritual care concerns: No Meds Home Medications and Allergies Home Medications ?Medication ?Instructions ?Recorded ?Confirmed ?Type atorvastatin 10 mg tablet See Rx Instructions .Route 10/07/24 01/24/25 Rx .COMPLEX #90 tabs lisinopril 40 mg tablet See Rx Instructions .Route 10/07/24 01/24/25 Rx .COMPLEX #90 tabs hydrochlorothiazide 50 mg tablet 50 mg PO DAILY #90 tabs 12/24/24 01/24/25 Rx multivitamin (Daily Multi-Vitamin 1 tablet PO DAILY 01/24/25 01/24/25 History tablet) Allergies Allergy/AdvReac Type Severity Reaction Status Date / Time No Known Allergies Allergy Verified 01/24/25 09:19 Exam Narrative: min urethral mobility cystocele to introitus apex supported Assessment and Plan Assessment and plan (1) Cystocele with prolapse: Code(s): N81.4 - Uterovaginal prolapse, unspecified Status: Acute (2) Intrinsic sphincter deficiency (ISD): Code(s): N36.42 - Intrinsic sphincter deficiency (ISD) Status: Acute Plan cystocele repair, bulking agent
[2025-02-07] VITALS (8 sets, daily range): BP systolic 129–175; BP diastolic 68–98; PULSE 68–94; RESP 14–20; TEMP 36.2–36.5; O2SAT 99–100
--- OUTSIDE RECORDS SUMMARY | 2025-02-07 02:12 | XMS_ITS | Clinical Summary ---
Author Organization [facility] Address [address] [place] [address] Care Team Providers Care Silk Conditioner Name Role Phone Brandon Leal MD Primary Care Provider [phone] Farzana Christina PT Unavailable Unavailable Allergies No [...] 10/26/2020 Assessment & Plan (06/15/2021 9:44 AM IMMIGRATION MANAGER): Well controlled, patient reports her mood [...] education materials about warm handoff program at [facility] for provide to daughter and granddaughter [...] 05/2021 Assessment & Plan (06/15/2021 9:45 AM IMMIGRATION MANAGER): Right worse than left, patient has [...] care Assessment & Plan (07/27/2021 9:13 PM IMMIGRATION MANAGER): Not well controlled; patient has multiple [...] REFLUX Assessment & Plan (06/15/2021 9:44 AM IMMIGRATION MANAGER): Not well controlled, patient reports worsening [...] travel Assessment & Plan (07/27/2021 9:13 PM IMMIGRATION MANAGER): Not well controlled; patient has multiple stressors; including daughter with substance use disorder, and caring for grandchildren. Will add Nifedipine 60 mg daily Refer patient to counseling Continue quinapril 40 mg bid Discontinue propranolol as no benefit Assessment & Plan (06/15/2021 9:43 AM IMMIGRATION MANAGER): Stable, well controlled; blood pressure is [...] daily Assessment & Plan (06/15/2021 9:43 AM IMMIGRATION MANAGER): Stable, well controlled; total and LDL cholesterol at target Continue atorvastatin 10 mg Assessment & Plan (12/29/2020 10:58 AM CDT): Stable, most recent lipid panel was normal Will continue atorvastatin 10 mg daily Encounters Date Type Department Care Team Description 12/28/2024 3:30 PM CDT Office Visit [facility] [place] [address] [place] [address] Kiersten Bingham NP Thrush, oral (Primary Dx) 12/16/2024 12:26 PM CDT - 12/16/2024 1:53 PM CDT Emergency [facility] Emergency Department 1 [place] [address] Right wrist pain (Primary Dx) Discharge Disposition: [...] on file Legal Sex Female 2:08 PM IMMIGRATION MANAGER Gender Identity Not on file Sexual [...] tendency for uric acid stone formation. Source: [employer] Current Interpretive Data was last revised on [...] DERABLES Final Result TW[facility]F (BHUMIKA) 1 [facility] Department [place] [address] * (ABNORMAL) Urinalysis, microscopic only (12/16/2024 1:49 [...] CDT 12/16/2024 1:54 PM CDT us Lin rBaun NP LAB URINE ORDERABLES Final Re sult [facility] ([facility]UM[facility]) 1 [facility] [place] [address] * Urine culture Urine (12/16/2024 1:49 PM CDT) Report Final Report: Less than 100,000 colonies/mL (clinically insignificant growth based on current clinical standards) Comment:Testing performed by : [facility], 1 [facility], [place]., [address] Organism (CLINICALLY INSIGNIFICANT GROWTH [facility] ([facility]) Urine 12/16/2024 1:49 PM CDT 12/16/2024 4:24 PM CDT Narrative [facility] (BHUMIKA) - 12/18/2024 7:38 AM CDT Urine culture reflexed based upon urinalysis results. Testing performed by [facility] ([phone]) Lin Braun NP LAB MICROBIOLOGY - GENERAL OR DERABLES Final Result [facility]UM[facility] 1 [facility] Department [place] [address] * XR Hand Right 3 or More [...] Ivana Lynne D.O. PS: PS Report ID: [id number] Reading Location: [id number] Procedure Note Ivana Lynne, DO - 12/16/2024 [...] Ivana Lynne D.O. PS: PS Report ID: [id number] Reading Location: [place] [address] Lin Braun NP IMG XR PROCEDURES Final [...] Ivana Lynne D.O. PS: PS Report ID: [id number] Reading Location: [id number] Procedure Note Ivana Lynne, DO - 12/16/2024 [...] Ivana Lynne D.O. PS: PS Report ID: [id number] Reading Location: [place] [address] Lin Braun DIRECTOR OF RETAIL MARKETING IMG XR PROCEDURES Final Resul t from Last 3 Months Insurance [facility] MEDICARE ADVANTAGE [facility] Address: [address] [address] [place] [address] [facility] MEDICARE T MEDICARE Care Teams Silk Conditioner Relationship Specialty Start Date End Date Brandon Leal MD PCP - General Family Practice 02/15/22 Farzana Christina PT Physical Therapist Physical Therapy 03/18/22
--- OUTSIDE RECORDS SUMMARY | 2025-02-07 02:12 | XMS_ITS | Encounter Summary ---
Author Organization [facility] Address [address] [place] [address] Phone Care Team Providers Care Entertainment Lawyer Name Role Phone Raphael Burch MD Primary Care Provider Brandon Leal MD Primary Care Provider [phone] Reason for Visit * Reason Comments Medication Refill Encounter Details Date Type Department Care Team (Late st Contact Info) Description 05/07/2020 Refill [facility] - Internal Medicine - [place] [address] [place] [address] Raphael Burch MD [address] [place] [address] Medication Refill Social History Tobacco Use Types [...] 8:51 AM CST Please review and sign. MENT MAN documented in this encounter Plan of Treatment Not on file documented as of this encounter Visit Diagnoses Not on filedocumented in this encounter Care Teams Entertainment Lawyer Relationship Specialty Start Date End Date Raphael Burch MD PCP - General Internal Medicine 06/29/18 03/06/22 Brandon Leal MD PCP - General Family Medicine 08/03/22 documented as of this encounter
--- OUTSIDE RECORDS SUMMARY | 2025-02-07 02:12 | XMS_ITS | Encounter Summary ---
Author Organization [facility] Address [address] [place] [address] Phone Care Team Providers Care Ethanol Operator Name Role Phone Raphael Burch MD Primary Care Provider Brandon Leal MD Primary Care Provider Reason for Visit * Reason Comments Medication Refill Encounter Details Date Type Department Care Team (Late st Contact Info) Description 10/14/2020 Refill [facility] - Internal Medicine - [place] [address] [place] [address] Raphael Burch MD [address] [place] [address] Medication Refill Social History Tobacco Use Types [...] Total Score: 0 07/17/19 21 11:00 AM PAINT FACTORY WORKER documented as of this encounter Care Teams Ethanol Operator Relationship Specialty Start Date End Date Raphael Burch MD PCP - General Internal Medicine 06/29/18 03/06/22 Brandon Leal MD PCP - General Family Medicine 08/03/22 documented as of this encounter
--- OUTSIDE RECORDS SUMMARY | 2025-02-07 02:12 | XMS_ITS | Clinical Summary ---
Author Organization [facility] [address] Address [address] [place] [address] Care Team Providers Care Senior Animal Trainer Name Role Phone Brandon Leal MD Primary Care Provider Allergies No known active allergies Medications Multiple [...] Comments Blood Pressure 143/85 07/02/2024 3:45 PM VALET PARKER Pulse 99 07/02/2024 3:45 PM VALET PARKER Temperature 36 C (96.8 F) 07/02/2024 3:45 PM VALET PARKER Respiratory Rate 12 07/02/2024 3:45 PM VALET PARKER Oxygen Saturation 100% 07/02/2024 3:45 PM VALET PARKER Inhaled Oxygen Concentration - - Weight 61.7 kg (136 lb) 07/02/2024 1:34 PM VALET PARKER Height 162.6 cm (5' 4) 07/02/2024 1:34 PM VALET PARKER Body Mass Index 23.34 07/02/2024 1:34 PM VALET PARKER Plan of Treatment Health Maintenance Due Date Last Done Comments DEXA Bone Density 1935 Hepatitis C Virus (HCV) Screening 1935 TdaP Immunization 1935 Pneumococcal Immunization (5 0+ years) (1 of 1 - PCV) 12/30/1985 Respiratory Syncytial Virus (RSV) Immunization (Adult) (1 - 1-dose 75+ series) 12/30/2010 Influenza Immunization (#1) 2025 12/0 09/2022, 06/15/2022, 02/21/2019 SARS-COV-2 Immunization (2 - 2024- season) 2025 08/31/2020 DTaP/Tdap/Td Immunization Discontinued 2023, 06/13/2006 Zoster [...] topic Insurance MEDICARE C AETNA Care Teams Senior Animal Trainer Relationship Specialty Start Date End Date Brandon Leal MD PCP - General Family Medicine 08/03/22
[2025-02-07] MEDS: LACTATED RINGERS 1,000 ML 30 ML IV CONT (06:20)
--- NOTE | 2025-02-07 06:47 | P.PNAN_ITS ---
Anes - Initial Pre Proc Eval Procedure: Operation Date: 02/07/25 07:30 Proposed Procedures p Cystocele Repair, - Jimenez Aldana MD s Cystoscopy, Injection Bulking Agent - Jimenez Aldana MD Date/Time: 02/07/25 06:47 Surgeon: Jimenez Aldana MD Pre Op Diagnosis: cystocele, stress incont Patient Data Age: 89 Gender: F Height: 1.6 m Weight: 62.2 kg Last Vital Signs Temp 36.2 C L 02/07/25 06:05 Pulse 86 02/07/25 06:05 Resp 18 02/07/25 06:05 BP 175/72 H 02/07/25 06:05 Pulse Ox 100 02/07/25 06:05 O2 Del Method Room Air 02/07/25 06:05 Allergies Allergy/AdvReac Type Severity Reaction Status Date / Time No Known Allergies Allergy Verified 01/24/25 09:19 Home Medications ?Medication ?Instructions ?Recorded ?Confirmed ?Type atorvastatin 10 mg tablet See Rx Instructions .Route 0 10/07/24 02/07/25 Rx .COMPLEX #90 tabs lisinopril 40 mg tablet See Rx Instructions .Route 0 10/07/24 02/07/25 Rx .COMPLEX #90 tabs hydrochlorothiazide 50 mg tablet 50 mg PO DAILY #90 ta bs 12/24/24 02/07/25 Rx multivitamin (Daily Multi-Vitamin 1 tablet PO DAILY 02/07/25 History tablet) Laboratory Tests 02/07/25 06:19 POC Capillary Glucose 111 H mg/dl (65-105) Patient hx anesthesia problems: none Family hx anesthesia problems: none Results Review: All pre-operative results and documents have been reviewed as part of the pre- operative evaluation. [facility] Past Medical History Medical History (Updated 02/06/25 @ 15:39 by Nicko San DO) Type 2 diabetes mellitus CKD (chronic kidney disease) Acquired claw toe of left foot Anxiety Hyperlipidemia HTN (hypertension) Surgical History Surgical History (Updated 02/06/25 @ 15:39 by Nicko San DO) History of hysterectomy History of ear surgery History of cholecystectomy Family History Family History Father Depression Mother Hypertension Sibling Hypertension Social History Social History Smoking status: Never smoker Second hand tobacco smoke exposure: No Alcohol intake: never Substance use: never Lack of Transportation: No Lack of Food: Never True Current Housing: I Have Housing Concerned About Future Housing: No Difficulty Paying Gas/Electric Bills: No Difficulty Paying for Meds: No Currently Unemployed: No Education: High School Diploma/GED Difficulty w/ Childcare or Family Care: No Living arrangements: alone Spiritual care concerns: No Anes - Eval Final PreProcedure Day of Procedure 02/07/25 06:47 Patient weight: normal Heart: regular rate and rhythm Lungs: clear to auscultation Airway: Mallampati scale class II Neurological: alert and oriented Last oral intake: >/= 8 hours ASA classification: III Emergent: no Anesthetic plan: proceed Anesthesia type and monitoring: general LMA and standard monitoring Results Review: All pre-operative results and documents have been reviewed as part of the pre- operative evaluation. Informed Consent: The patient's anesthetic plan and its attendant risks and benefits were discussed with the patient/family/POA. Questions were solicited and answers provided to the satisfaction of the patient/family/POA.
--- NOTE | 2025-02-07 07:15 | WPDHPUPDATE1 ---
History and Physical Update Update Date/Time: 02/07/25 07:15 History and Physical has been reviewed, including an updated exam of the patient. There are NO changes in the patient's condition. Risks, benefits, and alternatives have been discussed and questions answered. Patient agrees to proceed with procedure.
[2025-02-07] MEDS: ceFAZolin 2 GM in SODIUM CHLORIDE 0.9% IV 50 ML 100 ML IVPB (07:24)
[2025-02-07] MEDS: BUPIVACAINE/EPINEPHRINE 0.5% 50 ML VIAL 30 ML INFILTRATE (07:42)
--- NOTE | 2025-02-07 08:38 | P.OP_ITS ---
Procedure Note - Detailed Date of Procedure 02/07/25 Pre-op Diagnosis cystocele, intrinsic sphincteric deficiency Post-op Diagnosis Same Procedure Performed Cystocele repair Cystoscopy with suburethral injection of implant material Surgeon Jimenez Aldana MD Anesthesia General Indications A woman with a cystocele. She has had previous prolapse surgery. She had a robotic colpopexy. She has excellent apical support but a cystocele noted on exam. 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 She presents for the above. She understands risks of bleeding, infection, damage surrounding organs, damage to the urinary tract, recurrence of prolapse, dyspareunia, recurrent or persistent stress incontinence, urinary retention requiring catheterization, need for repeat procedures. She agrees to proceed Description of Procedure She is correctly identified. Informed consent obtained. She is from the operating room. She was given general anesthesia. She was placed in dorsal thigh position. All pressure points were padded. She was given appropriate perioperative antibiotics. Time-out performed. I placed [place]ada catheter. I placed a [place] retractor. She had a cystocele just beyond the introitus. She had excellent apical support. She had no rectocele. She had atrophic vaginal tissues. I grasped the cystocele with Allis clamps. I infiltrated these tissues with local mixed with epinephrine. A midline vaginal incision. I dissected out laterally and toward the apex taking great care not to injure the vaginal wall or the bladder. I then performed a standard plication cystocele repair. I used interrupted 0 Vicryl suture. To reduce the cystocele. I took great care not to injure underlying bladder. I then resected excess vaginal mucosa. I closed the vaginal mucosa with a running 2-0 Vicryl suture. There was excellent reduction of the cystocele On cystoscopy she had mild trabeculations. No surgical artifact in the bladder. No damage to the bladder. No tumors or stones. Both ureters were seen to excrete clear yellow urine. I then chose a site in the mid urethra 2 cm distal bladder neck. I injected bulking agent circumferentially. I used 1-3/4 syringe. There was excellent bulking effect. The bladder was left partially full. She was awakened transferred to PACU in stable condition. Estimated Blood Loss 20 Drains No Packing No Pathology None sent Complications No immediate complications Condition Stable Disposition PACU
== END 2025-02-07 09:58 | disposition home or self-care (01) ==
PROVIDERS: PCP Family Medicine; Visit Provider Urology
PROC: (CPT 57240; principal; 2025-02-07 07:30)
PROC: 3E0K8GC Introduction of Other Therapeutic Substance into Genitourinary Tract, Via Natural or Artificial Opening Endoscopic (ICD-10-PCS; CPT 57240; 2025-02-07 07:30)
DX: N81.4 Uterovaginal prolapse, unspecified (principal); N36.42 Intrinsic sphincter deficiency (ISD); N39.3 Stress incontinence (female) (male); I12.9 Hypertensive chronic kidney disease with stage 1 through stage 4 chronic kidney disease, or unspecified chronic kidney disease; E11.22 Type 2 diabetes mellitus with diabetic chronic kidney disease; N18.9 Chronic kidney disease, unspecified
CPT/HCPCS: 57240; 51715; 82948; J0690; J2003; J2704; J3010; J7120; L8606

== ENCOUNTER 2025-04-14 13:13 | Outpatient (CLI) | payer MEDICARE, SELFPAY ==
--- NOTE | ~2025-04-14 | DEXA_ITS ---
Bone Density Report Name: SAWTHI GRIMES Age: 89 Sex: Female Ethnicity: White Date of : 1935 Indication: osteopenia; height loss; hysterectomy; Referring Provider: SAHIL TALLEY Study: Bone densitometry was performed. Exam Date: April 14, 2025 Accession number: [id number] Bone Density: Region BMD T-score Z-score Classification AP Spine(L1-L4) 0.985 -0.6 2.3 Normal Femoral Neck (Left) 0.633 -1.9 0.6 Osteopenia Total Hip (Left) 0.798 -1.2 1.2 Osteopenia Femoral Neck (Right) 0.580 -2.4 0.1 Osteopenia Total Hip (Right) 0.744 -1.6 0.7 Osteopenia Total Hip Mean 0.771 -1.4 1.0 Osteopenia World Health Organization criteria for BMD impression classify patients as: Normal (T-score at or above -1.0), Osteopenia (T-score between -1.0 and -2.5), or Osteoporosis (T-score at or below -2.5). 10-year Fracture Risk(1): Major Osteoporotic Fracture 14% Hip Fracture 5.0% Reported Risk Factors: [place] (), Neck BMD=0.580, BMI=28.3 (1) FRAX(R) Version 3.08. Fracture probability calculated for an untreated patient. Fracture probability may be lower if the patient has received treatment. Previous Exams: -- Region Exam Age BMD T-score BMD Change BMD Change Date g/cm2 vs Baseline vs Previous -- AP Spine (L1-L4) 04/14/2025 89 0.985 -0.6 2.5%* 2.5%* 03/15/2023 87 0.961 -0.8 Total Hip(Left) 04/14/2025 89 0.798 -1.2 -5.3%* -5.3%* 03/15/2023 87 0.843 -0.8 Total Hip(Right) 04/14/2025 89 0.744 -1.6 -5.6%* -5.6%* 03/15/2023 87 0.788 -1.3 -- *Denotes significance at 95% confidence level, LSC for AP Spine = 0.022 g/cm2, LSC for Total Hip = 0.027 g/cm2 Clinical Information Provided by Patient: Has used the following medications: Vitamin D, Calcium Has the following medical conditions: Hysterectomy Patient maximum height was 64 Menopause Age: 45 Drinks caffeinated beverages Onset of menses at age 13 Number of children 5 Impression: The patient has low bone mass, based on the Right Femoral Neck T-score. The patient has an estimated ten-year risk of hip fracture of 5% and an estimated ten-year risk of major fracture of 14%, based on the WHO FRAX algorithm. The BMD for the Total Hip(Left) decreased, changing by -5.3% since the last DXA exam. The BMD for the Total Hip(Right) decreased, changing by -5.6% since the last DXA exam. Discussion: BONE DENSITY IS LOW AT ONE OR MORE SKELETAL SITES. THE PATIENT'S BMD AND CLINICAL RISK FACTORS CONTRIBUTE TO THIS PATIENT'S INCREASED RISK OF FRACTURE. This patient's lowest T-score is low at one or more skeletal sites. It meets the World Health Organization's (WHO) criteria for ?low bone mass? (T-score between -1.0 and -2.5). The patient's 10-year risk of hip fracture as calculated by FRAX exceeds the threshold where pharmacological therapy is recommended by the National Osteoporosis Foundation (NOF). However, all treatment decisions require clinical judgment and consideration of individual patient factors, including patient preferences, comorbidities, previous drug use, risk factors not captured in the FRAX model (e.g., frailty, falls, vitamin D deficiency, increased bone turnover, interval significant decline in bone density) and possible under or overestimation of fracture risk by FRAX. The patient should follow a healthful lifestyle (good nutrition with adequate calcium and vitamin D, and appropriate weight-bearing exercise). Follow-Up: Consider a repeat BMD and Vertebral Fracture Assessment (VFA) exam in 2 years or sooner if medically necessary, to reassess this patient's status. Reported by: RODRIGO on 04/14/2025 1:47:00 PM. Reviewed, dictated and finalized at location A.
== END 2025-04-14 13:14 | disposition home or self-care (01) ==
LOC: MICIMG 13:15
PROVIDERS: PCP Family Medicine; Visit Provider Family Medicine
DX: M81.0 Age-related osteoporosis without current pathological fracture (principal); M85.89 Other specified disorders of bone density and structure, multiple sites
CPT/HCPCS: 77080

== ENCOUNTER 2025-04-15 09:29 | Outpatient (CLI) | payer MEDICARE, SELFPAY ==
--- OUTSIDE RECORDS SUMMARY | 2025-04-15 09:51 | XMS_ITS | Encounter Summary ---
Author Organization [facility] Address [address] [place] [address] Phone Care Team Providers Care Seed And Fertilizer Specialist Name Role Phone Raphael Burch MD Primary Care Provider Brandon Leal MD Primary Care Provider Reason for Visit * Reason Comments Medication Refill Encounter Details Date Type Department Care Team (Late st Contact Info) Description 10/14/2020 Refill [facility] - Internal Medicine - [place] [address] [place] [address] Raphael Burch MD [address] [place] [address] Medication Refill Social History Tobacco Use Types [...] Total Score: 0 07/17/19 21 11:00 AM 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
--- OUTSIDE RECORDS SUMMARY | 2025-04-15 09:51 | XMS_ITS | Clinical Summary ---
Author Organization [facility] Address [address] [place] [address] Care Team Providers Care Cable Testers Helper Name Role Phone Brandon Leal MD Primary Care Provider [phone] Farzana Christina PT Unavailable Unavailable Allergies No [...] % powder Take by mouth Act ilda Active Problems Problem Noted Date Diagnosed Date Food bolus obstruction of intestine 07/02/2024 Bilateral leg edema 10/26/2020 Assessment & Plan (10/26/2020 9:06 AM CDT): Has pitting edema in both legs, as well as some sense of loss of sensation in both feet Will start furosemide 20 daily at this time, continue to monitor Dysthymia 10/26/2020 Assessment & Plan (06/15/2021 9:44 AM MARINE FIRER): Well controlled, patient reports her mood is [...] education materials about warm handoff program at [facility] for provide to daughter and granddaughter [...] 05/2021 Assessment & Plan (06/15/2021 9:45 AM MARINE FIRER): Right worse than left, patient has some [...] care Assessment & Plan (07/27/2021 9:13 PM MARINE FIRER): Not well controlled; patient has multiple stressors; [...] REFLUX Assessment & Plan (06/15/2021 9:44 AM MARINE FIRER): Not well controlled, patient reports worsening symptoms [...] travel Assessment & Plan (07/27/2021 9:13 PM MARINE FIRER): Not well controlled; patient has multiple stressors; including daughter with substance use disorder, and caring for grandchildren. Will add Nifedipine 60 mg daily Refer patient to counseling Continue quinapril 40 mg bid Discontinue propranolol as no benefit Assessment & Plan (06/15/2021 9:43 AM MARINE FIRER): Stable, well controlled; blood pressure is at [...] daily Assessment & Plan (06/15/2021 9:43 AM MARINE FIRER): Stable, well controlled; total and LDL cholesterol [...] Medical History Date Comments Hx Other Medical -GI Vertigo Vertigo Hx Other Medical Lumbar Disc [...] on file Legal Sex Female 2:08 PM MARINE FIRER Gender Identity Not on file Sexual Orientation [...] Additional history exists Covid-19 Vaccine (2 - 2024-2 6 season) 2025 08/31/2020 Influenza Vaccine (#1) 2025 02/21/2019 Insurance UHC MEDICARE ADVANTAGE [facility] MEDICARE [facility] MEDICARE Care Teams Cable Testers Helper Relationship Specialty Start Date End Date Brandon Leal MD PCP - General Family Practice 02/15/22 Farzana Christina PT Physical Therapist Physical Therapy 03/18/22
--- OUTSIDE RECORDS SUMMARY | 2025-04-15 09:51 | XMS_ITS | Encounter Summary ---
Author Organization [facility] Address [address] [place] [id number] Phone Care Team Providers Care Squadron Worker Name Role Phone Raphael Burch MD Primary Care Provider Brandon Leal MD Primary Care Provider Reason for Visit * Reason Comments Medication Refill Encounter Details Date Type Department Care Team (Late st Contact Info) Description 05/07/2020 Refill [facility] - Internal Medicine - [place] [address] [place] [address] Raphael Burch MD [address] [place] [address] Medication Refill Social History Tobacco Use Types [...] 8:51 AM CST Please review and sign. 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
--- OUTSIDE RECORDS SUMMARY | 2025-04-15 09:51 | XMS_ITS | Clinical Summary ---
Author Organization [facility] [address] [address] Address [address] [place] [address] Care Team Providers Care Behavioral Health Care Manager Name Role Phone Brandon Leal MD Primary Care Provider [phone] Allergies No known active allergies Medications Multiple [...] Comments Blood Pressure 143/85 07/02/2024 3:45 PM PAPERHANGER Pulse 99 07/02/2024 3:45 PM PAPERHANGER Temperature 36 C (96.8 F) 07/02/2024 3:45 PM PAPERHANGER Respiratory Rate 12 07/02/2024 3:45 PM PAPERHANGER Oxygen Saturation 100% 07/02/2024 3:45 PM PAPERHANGER Inhaled Oxygen Concentration - - Weight 61.7 kg (136 lb) 07/02/2024 1:34 PM PAPERHANGER Height 162.6 cm (5' 4) 07/02/2024 1:34 PM PAPERHANGER Body Mass Index 23.34 07/02/2024 1:34 PM PAPERHANGER Plan of Treatment Health Maintenance Due Date Last Done Comments DEXA Bone Density 1935 Hepatitis C Virus (HCV) Screening 1935 TdaP Immunization 1935 Pneumococcal Immunization (5 0+ years) (1 of 1 - PCV) 12/30/1985 Respiratory Syncytial Virus (RSV) Immunization (Adult) (1 - 1-dose 75+ series) 12/30/2010 Medicare Initial AWV [id number] 06/05/2019 Influenza Immunization (#1) 2025 12/0 09/2022, 06/15/2022, 02/21/2019 SARS-COV-2 Immunization (2 - season) 2025 08/31/2020 DTaP/Tdap/Td Immunization Discontinued 2023, [...] topic Insurance MEDICARE C [employer] Care Teams Behavioral Health Care Manager Relationship Specialty Start Date End Date Brandon Leal MD PCP - General Family Medicine 08/03/22
[2025-04-15 18:51] LABS: Cholesterol 188 mg/dL (0-200); HDL Direct 65 mg/dL; Triglycerides 119 mg/dL (<150)
[2025-04-15 19:08] LABS: Hemoglobin A1C 6.2 % (<5.7)
[2025-04-15 19:30] LABS: MALB Creatinine Ratio 8.4 mg/g (0-30)
[2025-04-15 20:01] LABS: Vitamin B12 768.0 pg/mL (239-931)
== END 2025-04-15 09:30 | disposition home or self-care (01) ==
LOC: ANHLAB 09:30 → ANHBWCLAB 09:34
PROVIDERS: PCP Family Medicine; Visit Provider Family Medicine
DX: E11.22 Type 2 diabetes mellitus with diabetic chronic kidney disease (principal); I12.9 Hypertensive chronic kidney disease with stage 1 through stage 4 chronic kidney disease, or unspecified chronic kidney disease; N18.32 Chronic kidney disease, stage 3b; R53.83 Other fatigue; Z00.00 Encounter for general adult medical examination without abnormal findings
CPT/HCPCS: 36415; 80061; 82043; 82306; 82607; 83036